=== PATIENT | female | born 1950 | race Caucasian/White ===

== ENCOUNTER 2021-10-30 20:08 | Inpatient (IN) | payer MEDICARE, OTHER ==
[2021-10-30] MEDS ORDERED: SODIUM CHLORIDE 0.9% 1,000 ML IV STA (20:16)
--- NOTE | 2021-10-30 20:28 | ED ---
General Adult HPI - General Chief complaint: Nausea/Vomiting/Diarrhea Stated complaint: Weakness Time Seen by Provider: 10/30/21 20:12 Source: patient Mode of arrival: EMS - History of Present Illness Initial comments: Dictation was produced using [employer] dictation software. please excuse any grammatical, word or spelling errors. Chief Complaint: 70-year-old female presents to the emergency department for request to remove lap band History of Present Illness: 70-year-old female she says she is here to day in emergency department to have her lap and removed. When questioned further states she's been nauseated for the last 2 months specially worse today. She doesn't have a good social situation feels so dizzy that she can call and make an outpatient appointment with her surgeon Dr. Mora who initially placed the lap band. Those at home by herself. She has no transportation. She has a cat that stays with her. 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 She does not take medica tions to treat this because she does not like the side effects of it. She denies any abdominal pain. States that she has nausea. The ROS documented in this emergency department record has been reviewed and confirmed by me. Those systems with pertinent positive or negative responses have been documented in the HPI. All other systems are other negative and/or noncontributory. PHYSICAL EXAM: General Impression: Alert and oriented x3, tremulous HEENT: Normocephalic atraumatic, extra-ocular movements intact, pupils equal and reactive to light bilaterally, mucous membranes moist. Cardiovascular: Heart regular rate and rhythm Chest: Able to complete full sentences, no retractions, no tachypnea Abdomen: abdomen soft, non-tender, non-distended, no organomegaly Musculoskeletal: Pulses present and equal in all extremities, no peripheral edema Motor: no focal deficits noted Neurological: CN II-XII grossly intact, no focal motor or sensory deficits noted Skin: Intact with no visualized rashes Psych: Normal affect and mood ED course: 70-year-old female presents to the emergency department with 2 months of nausea. She wants her lap band removed. She had the lap band placed [address] Cage. Vital signs upon arrival are within acceptable limits. Heart rate is 149 on the monitor technician however she is tremulous and 149 likely not accurate. Laboratory evaluation obtained. CBC unremarkable. Metabolic panel shows slight derangement potassium 3.1, magnesium 1.4, lactic acid is 2.2. Rest metabolic panel is within acceptable limits. Abdominal x-ray with chest x-ray shows no obstructive bowel gas pattern. Patient still nauseated. Given patient's electrolyte derangement she'll be admitted. Her electrolyte abnormalities replaced with parent parenteral Potassium and magnesium. Patient will be admitted to [facility]. EKG interpretation: Ventricular rate 139, sinus tachycardia,. Interval 1:30, care setting 4, QTC 410. No ND prolongation, no QTC prolongation, no ST or T- wave changes noted. - Related Data Home Medications Medication Instructions Recorded Confirmed Atorvastatin [Lipitor] 10 mg PO HS 10/30/21 10/30/21 Enalapril [Vasotec] 20 mg PO DAILY 10/30/21 10/30/21 Furosemide [Lasix] 40 mg PO DAILY 10/30/21 10/30/21 Gabapentin [Neurontin] 300 mg PO TID 10/30/21 10/30/21 Levothyroxine Sodium [Synthroid] 25 mcg PO DAILY 10/30/21 10/30/21 Omeprazole 20 mg PO DAILY 10/30/21 10/30/21 metFORMIN HCL [Glucophage] 500 mg PO BID 10/30/21 10/30/21 metOLazone [Zaroxolyn] 2.5 mg PO DAILY 10/30/21 10/30/21 Allergies Allergy/AdvReac Type Severity Reaction Status Date / Time aspirin Allergy Rash/Hives Verified 10/30/21 20:19 Review of Systems ROS Statement: Those systems with pertinent positive or pertinent negative responses have been documented in the HPI. ROS Other: All systems not noted in ROS Statement are negative. Course Vital Signs 10/30/21 10/30/21 20:10 21:55 Temperature 97.9 F Pulse Rate 149 H 81 Respiratory 18 18 Rate Blood Pressure 139/84 135/82 O2 Sat by Pulse 97 97 Oximetry Medical Decision Making - Lab Data Result diagrams: 10/30/21 20:46 10/30/21 20:46 Lab Results 10/30/21 10/30/21 10/30/21 Range/Units 20:46 20:46 20:46 WBC 9.3 (3.8-10.6) k/uL RBC 4.27 (3.80-5.40) m/uL Hgb 15.2 (11.4-16.0) gm/dL Hct 46.3 H (34.0-46.0) % MCV 108.2 H (80.0-100.0) fL MCH 35.7 H (25.0-35.0) pg MCHC 33.0 (31.0-37.0) g/dL RDW 12.7 (11.5-15.5) % Plt Count 401 (150-450) k/uL MPV 7.3 Neutrophils % 61 % Lymphocytes % 25 % Monocytes % 9 % Eosinophils % 1 % Basophils % 2 % Neutrophils # 5.6 (1.3-7.7) k/uL Lymphocytes # 2.4 (1.0-4.8) k/uL Monocytes # 0.9 (0-1.0) k/uL Eosinophils # 0.1 (0-0.7) k/uL Basophils # 0.1 (0-0.2) k/uL Macrocytosis Moderate Sodium 134 L (137-145) mmol/L Potassium 3.1 L (3.5-5.1) mmol/L Chloride 95 L (98-107) mmol/L Carbon Dioxide 33 H (22-30) mmol/L Anion Gap 6 mmol/L BUN 15 (7-17) mg/dL Creatinine 0.74 (0.52-1.04) mg/dL Est GFR (CKD-EPI)AfAm >90 (>60 ml/min/1.73 sqM) Est GFR (CKD-EPI)NonAf 82 (>60 ml/min/1.73 sqM) Glucose 148 H (74-99) mg/dL Plasma Lactic Acid Dario 2.2 H* (0.7-2.0) mmol/L Calcium 8.3 L (8.4-10.2) mg/dL Magnesium 1.4 L (1.6-2.3) mg/dL Total Bilirubin 0.9 (0.2-1.3) mg/dL AST 73 H (14-36) U/L ALT 31 (4-34) U/L Alkaline Phosphatase 137 H (38-126) U/L Total Protein 6.4 (6.3-8.2) g/dL Albumin 3.2 L (3.5-5.0) g/dL Lipase 85 (23-300) U/L Disposition Clinical Impression: Intractable nausea and vomiting, Hypomagnesemia, Hypokalemia Disposition: ADMITTED IP TO THIS HOSP Condition: Fair Referrals: Jozef Gallegos MD [Primary Care Provider] - 1-2 days
[2021-10-30 21:20] LABS: Basophils # (A) 0.1 k/uL (0-0.2); Basophils % (A) 2 %; Eosinophils # (A) 0.1 k/uL (0-0.7); Eosinophils % (A) 1 %; HCT 46.3 % (34.0-46.0); HGB 15.2 gm/dL (11.4-16.0); Lymphocytes # (A) 2.4 k/uL (1.0-4.8); Lymphocytes % (A) 25 %; MCH 35.7 pg (25.0-35.0); MCV 108.2 fL (80.0-100.0); Macrocytosis Moderate; Mean Platelet Volume 7.3; Monocytes # (A) 0.9 k/uL (0-1.0); Monocytes % (A) 9 %; Neutrophils # (A) 5.6 k/uL (1.3-7.7); Neutrophils % (A) 61 %; Platelet Count 401 k/uL (150-450); RBC 4.27 m/uL (3.80-5.40); RDW 12.7 % (11.5-15.5); WBC 9.3 k/uL (3.8-10.6)
[2021-10-30 21:33] LABS: ALT 31 U/L (4-34); AST 73 U/L (14-36); African American GFR (CKD) >90 (>60 ml/min/1.73 sqM); Albumin 3.2 g/dL (3.5-5.0); Alkaline Phosphatase 137 U/L (38-126); Anion Gap 6 mmol/L; Blood Urea Nitrogen 15 mg/dL (7-17); Calcium 8.3 mg/dL (8.4-10.2); Carbon Dioxide 33 mmol/L (22-30); Chloride 95 mmol/L (98-107); Glucose 148 mg/dL (74-99); Lipase 85 U/L (23-300); Magnesium 1.4 mg/dL (1.6-2.3); Non-African American GFR(CKD) 82 (>60 ml/min/1.73 sqM); Potassium 3.1 mmol/L (3.5-5.1); Sodium 134 mmol/L (137-145); Total Bilirubin 0.9 mg/dL (0.2-1.3); Total Protein 6.4 g/dL (6.3-8.2)
[2021-10-30] MEDS ORDERED: POTASSIUM CHLORIDE 40 MEQ in WATER FOR INJECTION 1 100ML.BAG IVPB STA (22:02)
[2021-10-30] MEDS ORDERED: NALOXONE 0.4 MG/ML 1 ML VIAL IV PRN (22:13)
[2021-10-30] MEDS ORDERED: ONDANSETRON 4 MG/2 ML VIAL IVP PRN (22:13)
--- NOTE | 2021-10-30 22:15 | XR ---
EXAMINATION TYPE: XR abdomen acute w cxr DATE OF EXAM: 10/30/2021 9:57 PM INDICATION: Patient age:Female; 70 years old; Reason for study: nausea; COMPARISON: None. COMPARISON: TECHNIQUE: Two radiographic views of the abdomen and an a chest radiograph were obtained. FINDINGS CHEST: Lungs/Pleura: Patient is rotated on this exam. The lungs are clear. There is no evidence of pleural e ffusion, focal consolidation or pneumothorax. Mediastinum: Unremarkable. Vasculature: Normal. Heart: Normal in size. Musculoskeletal: The osseous structures are intact. Multilevel disc degeneration changes are present with scoliosis changes. Other findings: No significant. FINDINGS ABDOMEN: Bowel gas pattern: Normal without dilated loops of small or large bowel. Fecal material and gas are d emonstrated throughout the colon and rectum. Abnormal calcifications: None. Musculoskeletal: Mild osteophyte formation of the hips is present. Multilevel degenerative disc disea se changes of the lower spine. Other: Gastric band present the flattened orientation. IMPRESSION: 1. No radiographic evidence for acute abdominal process. 2. No acute cardiopulmonary process 3. Flattened orientation of the gastric band correlate for malposition.
[2021-10-30] MEDS ORDERED: POTASSIUM CHLORIDE 100 ML IVPB SCH (22:30)
[2021-10-30] MEDS: POTASSIUM CHLORIDE 20 MEQ in WATER FOR INJECTION 1 100ML.BAG IVPB SCH (22:58)
[2021-10-30] MEDS: MAGNESIUM SULFATE-D5W PMX 1 GM in DEXTROSE/WATER 1 100ML.BAG IVPB SCH (22:58)
[2021-10-30] MEDS: SODIUM CHLORIDE 0.9% 1,000 ML IV SCH (23:09)
[2021-10-31] MEDS: POTASSIUM CHLORIDE 20 MEQ in WATER FOR INJECTION 1 100ML.BAG IVPB SCH (00:48)
[2021-10-31] MEDS ORDERED: LORazepam 2 MG/ML INJ IV STA (01:27)
[2021-10-31] MEDS ORDERED: METOCLOPRAMIDE 5 MG/ML 2 ML VIAL IVP PRN (01:29)
--- NOTE | 2021-10-31 01:38 | P.HPIM ---
History of Present Illness H&P Date: 10/30/21 Chief Complaint: Intractable nausea vomiting 70-year-old female with hypertension and diabetes mellitus and hypothyroid Patient comes in due to persistent nausea vomiting over the past 2 months. Patient is not clear why she decided to come in today however she notified EMS and was brought in by an ambulance as she couldn't take it anymore she cannot tolerate to keep down any food but she is able to drink some liquids. At the same time she admits to drinking wine on daily basis she would drink one or 2 glasses of wine sipping it throughout the night. Patient started having significant tremors for years now and says that alcohol helps with the symptoms. Patient also concerned regarding a lap band that was placed many many years ago and requesting that it gets reevaluated by her surgeon Dr. Mora placed at about 18 years ago to consider removal. Patient has poor social situation and it's unclear why she didn't seek medical advice sooner than this however she denies otherwise any bleeding or abdominal pain denies any falling despite some generalized weakness denies any fevers or chills denies any chest pain or trouble breathing Workup in the ED acute abdominal series showed no acute findings, potassium was low magnesium is low lactic acid elevated. Review of Systems Pertinent positives as noted in HPI. All other systems were reviewed and are negative Past Medical History Past Medical History: Diabetes Mellitus, Hyperlipidemia, Hypertension Additional Past Medical History / Comment(s): chronic tremors, chronic edema. History of Any Multi-Drug Resistant Organisms: None Reported Past Surgical History: Tubal Ligation Additional Past Surgical History / Comment(s): lap band surgery 2002. heel spur surgery, nasal surgery. Past Anesthesia/Blood Transfusion Reactions: No Reported Reaction Past Psychological History: Anxiety, Depression Smoking Status: Former smoker - Past Family History Mother Family Medical History: Cancer, Hypertension Additional Family Medical History / Comment(s): colon and lung cancer. Father Additional Family Medical History / Comment(s): multiple myeloma. Medications and Allergies Home Medications Medication Instructions Recorded Confirmed Type Atorvastatin [Lipitor] 10 mg PO HS 10/30/21 10/30/21 History Enalapril [Vasotec] 20 mg PO DAILY 10/30/21 10/30/21 History Furosemide [Lasix] 40 mg PO DAILY 10/30/21 10/30/21 History Gabapentin [Neurontin] 300 mg PO TID 10/30/21 10/30/21 History Levothyroxine Sodium [Synthroid] 25 mcg PO DAILY 10/30/21 10/30/21 History Omeprazole 20 mg PO DAILY 10/30/21 10/30/21 History metFORMIN HCL [Glucophage] 500 mg PO BID 10/30/21 10/30/21 History metOLazone [Zaroxolyn] 2.5 mg PO DAILY 10/30/21 10/30/21 History Allergies Allergy/AdvReac Type Severity Reaction Status Date / Time aspirin Allergy Rash/Hives Verified 10/30/21 20:19 Physical Exam Vitals: Vital Signs Temp Pulse Pulse Resp BP BP Pulse Ox 10/31/21 01:15 122 H 10/31/21 01:03 98.2 F 133 H 18 126/78 93 L 10/31/21 00:44 130 H 10/30/21 23:31 97 18 141/78 98 10/30/21 21:55 81 18 135/82 97 10/30/21 20:10 97.9 F 149 H 18 139/84 97 Intake and Output 10/30/21 10/30/21 10/31/21 14:59 22:59 06:59 Other: Weight 81.647 kg 81.647 kg Constitutional: Patient is having tremors, pressured speech, repeated nausea vomiting during the interview Eyes: Anicteric sclerae, moist conjunctiva, Pupils equal round reactive to light ENMT: NC/AT Oropharynx clear, no erythema, or exudates Neck: Supple, no masses, or JVD No carotid bruits No thyromegaly Lungs: Audible breath sounds throughout, scattered rhonchi Clear to percussion Normal respiratory effort, no accessory muscle use Cardiovascular: Heart tachycardia, Soft murmurs, no gallops, or rubs No peripheral edema Abdominal: Soft Nontender, no guarding, rebound or rigidity Abdomen moving with respiration Normoactive bowel sounds No hepatomegaly, No splenomegaly No palpable mass No abdominal wall hernia noted Skin: Normal temperature, tone, texture, turgor No induration No subcutaneous nodules No rash, lesions No ulcers Extremities: No digital cyanosis No clubbing Pedal pulses intact and symmetrical Radial pulses intact and symmetrical No calf tenderness Psychiatric: Alert and oriented to person, place and time Neuro Muscles Strength 3-4/5 in all 4 extremities Sensation to light touch grossly present throughout Cranial nerves II-XII grossly intact No focal sensory deficits Lymphatics: no palpable cervical or supraclavicular , or inguinal lymph nodes Results CBC & Chem 7: 10/30/21 20:46 10/30/21 20:46 Labs: Abnormal Lab Results - Last 24 Hours (Table) 10/30/21 10/30/21 10/30/21 Range/Units 20:46 20:46 20:46 Hct 46.3 H (34.0-46.0) % MCV 108.2 H (80.0-100.0) fL MCH 35.7 H (25.0-35.0) pg Sodium 134 L (137-145) mmol/L Potassium 3.1 L (3.5-5.1) mmol/L Chloride 95 L (98-107) mmol/L Carbon Dioxide 33 H (22-30) mmol/L Glucose 148 H (74-99) mg/dL Plasma Lactic Acid Dario 2.2 H* (0.7-2.0) mmol/L Calcium 8.3 L (8.4-10.2) mg/dL Magnesium 1.4 L (1.6-2.3) mg/dL AST 73 H (14-36) U/L Alkaline Phosphatase 137 H (38-126) U/L Albumin 3.2 L (3.5-5.0) g/dL Thrombosis Risk Factor Assmnt - Choose All That Apply Any of the Below Risk Factors Present?: Yes Each Factor Represents 1 point: Obesity (BMI >25) Other Risk Factors: Yes Each Risk Factor Represents 2 Points: Age 61-74 years Other congenital or acquired thrombophilia - If yes, enter type in comment: No Thrombosis Risk Factor Assessment Total Risk Factor Score: 3 Thrombosis Risk Factor Assessment Level: Moderate Risk Assessment and Plan Assessment: Intractable nausea vomiting Electrolyte abnormalities with hypokalemia and hypomagnesemia Lactic acidosis Plan Supportive care IV fluid hydration with normal saline Replace potassium and magnesium and follow-up levels General surgery consult for review of her lamp and placed 18 years ago Monitor vital signs Ativan when necessary for anxiety Chronic conditions Hypothyroidism levothyroxine Diabetes mellitus insulin sliding scale Hypertension resume home blood pressure medications Heparin subcu 3 times a day DVT prophylaxis Full code Anticipated length of stay less than 2 midnights
[2021-10-31] MEDS: ACETAMINOPHEN TAB 325 MG TAB PO PRN (01:44)
[2021-10-31] MEDS ORDERED: IPRATROPIUM-ALBUTEROL 3 ML NEB INHALATION PRN (01:48)
[2021-10-31] MEDS: MAGNESIUM SULFATE-D5W PMX 1 GM in DEXTROSE/WATER 1 100ML.BAG IVPB SCH ×3 (02:57→05:15)
[2021-10-31] MEDS: SODIUM CHLORIDE 0.9% 1,000 ML IV SCH ×3 (05:15→21:08)
[2021-10-31] MEDS: LEVOTHYROXINE 25 MCG TAB PO SCH (05:17)
[2021-10-31 07:47] LABS: Glucose,Whole Blood 100 mg/dL (75-99)
[2021-10-31] MEDS: INSULIN ASPART (NovoLOG) 100 UNIT/ML VIAL SQ SCH ×4 (08:07→21:03)
[2021-10-31] MEDS: IOPAMIDOL CONTRAST (ORAL USE) VIAL PO PRN ×2 (08:51→09:44)
[2021-10-31] MEDS: PANTOPRAZOLE 40 MG/10 ML VIAL IVP SCH (08:51)
[2021-10-31] MEDS ORDERED: lisinopriL 20 MG TAB PO SCH (09:00)
[2021-10-31] MEDS ORDERED: PANTOPRAZOLE 40 MG TABLET PO SCH (09:00)
[2021-10-31] MEDS: HEPARIN SODIUM,PORCINE/PF 5,000 UNIT/0.5 ML SYRINGE SQ SCH ×3 (09:21→23:20)
[2021-10-31] MEDS: GABAPENTIN 300 MG CAP PO SCH ×2 (09:21→16:23)
--- NOTE | 2021-10-31 10:41 | P.GSCN ---
History of Present Illness Consult date: 10/31/21 Reason for Consult: Two-year history of nausea GERD History of present illness: This a 70-year-old female who has a previous history of LAP-BAND surgery with Dr. Cage many years ago. Patient states that she has a two-year history of chronic nausea and GERD symptoms. She has not been seen by Dr. Cage recently. She states she was unable to follow up with him due to transportation issues. Patient was admitted through the emergency room with dehydration and electrolyte imbalances. Patient's currently being fluid hydrated. She states that she is able to drink liquids. She is unsure of the fill volume in her band. Past Medical History Past Medical History: Diabetes Mellitus, Hyperlipidemia, Hypertension Additional Past Medical History / Comment(s): chronic tremors, chronic edema. History of Any Multi-Drug Resistant Organisms: None Reported Past Surgical History: Tubal Ligation Additional Past Surgical History / Comment(s): lap band surgery 2002. heel spur surgery, nasal surgery. Past Anesthesia/Blood Transfusion Reactions: No Reported Reaction Past Psychological History: Anxiety, Depression Smoking Status: Former smoker - Past Family History Mother Family Medical History: Cancer, Hypertension Additional Family Medical History / Comment(s): colon and lung cancer. Father Additional Family Medical History / Comment(s): multiple myeloma. Medications and Allergies Home Medications Medication Instructions Recorded Confirmed Type Atorvastatin [Lipitor] 10 mg PO HS 10/30/21 10/30/21 History Enalapril [Vasotec] 20 mg PO DAILY 10/30/21 10/30/21 History Furosemide [Lasix] 40 mg PO DAILY 10/30/21 10/30/21 History Gabapentin [Neurontin] 300 mg PO TID 10/30/21 10/30/21 History Levothyroxine Sodium [Synthroid] 25 mcg PO DAILY 10/30/21 10/30/21 History Omeprazole 20 mg PO DAILY 10/30/21 10/30/21 History metFORMIN HCL [Glucophage] 500 mg PO BID 10/30/21 10/30/21 History metOLazone [Zaroxolyn] 2.5 mg PO DAILY 10/30/21 10/30/21 History Allergies Allergy/AdvReac Type Severity Reaction Status Date / Time aspirin Allergy Rash/Hives Verified 10/30/21 20:19 Surgical - Exam Vital Signs Temp Pulse Resp BP Pulse Ox 97.9 F 149 H 18 139/84 97 10/30/21 20:10 10/30/21 20:10 10/30/21 20:10 10/30/21 20:10 10/30/21 20:10 - General well developed, no distress - Eyes PERRL - ENT normal pinna - Neck no masses - Respiratory normal expansion - Cardiovascular Rhythm: regular - Abdomen Abdomen: soft, non tender Results - Labs 10/30/21 20:46 10/30/21 20:46 Abnormal Lab Results - Last 24 Hours (Table) 10/30/21 10/30/21 10/30/21 Range/Units 20:46 20:46 20:46 Hct 46.3 H (34.0-46.0) % MCV 108.2 H (80.0-100.0) fL MCH 35.7 H (25.0-35.0) pg Sodium 134 L (137-145) mmol/L Potassium 3.1 L (3.5-5.1) mmol/L Chloride 95 L (98-107) mmol/L Carbon Dioxide 33 H (22-30) mmol/L Glucose 148 H (74-99) mg/dL POC Glucose (mg/dL) (75-99) mg/dL Plasma Lactic Acid Dario 2.2 H* (0.7-2.0) mmol/L Calcium 8.3 L (8.4-10.2) mg/dL Magnesium 1.4 L (1.6-2.3) mg/dL AST 73 H (14-36) U/L Alkaline Phosphatase 137 H (38-126) U/L Albumin 3.2 L (3.5-5.0) g/dL 10/31/21 10/31/21 Range/Units 00:27 07:46 Hct (34.0-46.0) % MCV (80.0-100.0) fL MCH (25.0-35.0) pg Sodium (137-145) mmol/L Potassium (3.5-5.1) mmol/L Chloride (98-107) mmol/L Carbon Dioxide (22-30) mmol/L Glucose (74-99) mg/dL POC Glucose (mg/dL) 100 H (75-99) mg/dL Plasma Lactic Acid Dario 2.4 H* (0.7-2.0) mmol/L Calcium (8.4-10.2) mg/dL Magnesium (1.6-2.3) mg/dL AST (14-36) U/L Alkaline Phosphatase (38-126) U/L Albumin (3.5-5.0) g/dL Diabetes panel 10/30/21 Range/Units 20:46 Sodium 134 L (137-145) mmol/L Potassium 3.1 L (3.5-5.1) mmol/L Chloride 95 L (98-107) mmol/L Carbon Dioxide 33 H (22-30) mmol/L BUN 15 (7-17) mg/dL Creatinine 0.74 (0.52-1.04) mg/dL Glucose 148 H (74-99) mg/dL Calcium 8.3 L (8.4-10.2) mg/dL AST 73 H (14-36) U/L ALT 31 (4-34) U/L Alkaline Phosphatase 137 H (38-126) U/L Total Protein 6.4 (6.3-8.2) g/dL Albumin 3.2 L (3.5-5.0) g/dL Calcium panel 10/30/21 Range/Units 20:46 Calcium 8.3 L (8.4-10.2) mg/dL Albumin 3.2 L (3.5-5.0) g/dL Pituitary panel 10/30/21 Range/Units 20:46 Sodium 134 L (137-145) mmol/L Potassium 3.1 L (3.5-5.1) mmol/L Chloride 95 L (98-107) mmol/L Carbon Dioxide 33 H (22-30) mmol/L BUN 15 (7-17) mg/dL Creatinine 0.74 (0.52-1.04) mg/dL Glucose 148 H (74-99) mg/dL Calcium 8.3 L (8.4-10.2) mg/dL Adrenal panel 10/30/21 Range/Units 20:46 Sodium 134 L (137-145) mmol/L Potassium 3.1 L (3.5-5.1) mmol/L Chloride 95 L (98-107) mmol/L Carbon Dioxide 33 H (22-30) mmol/L BUN 15 (7-17) mg/dL Creatinine 0.74 (0.52-1.04) mg/dL Glucose 148 H (74-99) mg/dL Calcium 8.3 L (8.4-10.2) mg/dL Total Bilirubin 0.9 (0.2-1.3) mg/dL AST 73 H (14-36) U/L ALT 31 (4-34) U/L Alkaline Phosphatase 137 H (38-126) U/L Total Protein 6.4 (6.3-8.2) g/dL Albumin 3.2 L (3.5-5.0) g/dL Assessment and Plan Assessment: Chronic history of GERD. Patient has had LAP-BAND. Her abdominal x-rays show an obvious prolapse of her LAP-BAND. She is scheduled for a CAT scan today. The patient will need the fluid in her LAP-BAND removed. She can remain on clear liquids for now.
--- NOTE | 2021-10-31 11:02 | CT ---
EXAMINATION TYPE: CT abdomen pelvis w con DATE OF EXAM: 10/31/2021 HISTORY: nausea and vomiting CT DLP: 1257.1mGycm Automated Exposure Control for Dose Reduction was Utilized. CONTRAST: CT scan of the abdomen and pelvis is performed with oral and with IV Contrast, patient injected with 100 mL of Isovue 300. COMPARISON: None. FINDINGS: LUNG BASES: No significant abnormality is appreciated. LIVER/GB: Gallbladder is surgically absent. Visualized liver is heterogeneously hypodense suggesting diffuse fatty infiltration. PANCREAS: [id number] diffuse fat replaced atrophy. SPLEEN: No significant abnormality is seen. ADRENALS: No significant abnormality is seen. KIDNEYS: No significant abnormality is seen. BOWEL: Oral contrast only reaches level of hepatic flexure. Lap band device satisfactory in position. No suspicious small or large bowel dilatation. Diverticula in the left and sigmoid colon. Mild wall thickening transverse colon to sigmoid colon. No significant surrounding fat stranding. UTERUS/ADNEXA: Anteverted uterus projects to left of midline. Occasional scattered pelvic phleboliths . LYMPH NODES: No greater than 1cm abdominal or pelvic lymph nodes are appreciated. OSSEOUS STRUCTURES: Spine is straightened. Moderate to severe Disc space narrowing and vacuum disc ph enomenon greatest right L3-L4 and L2-L3 levels along with L5-S1 levels. Facet arthropathy lower lumba r levels. OTHER: Mild to borderline moderate calcified plaque of the aorta extends into branch vessels. Small f at-containing left inguinal hernia. IMPRESSION: No bowel obstruction. Colonic findings favor product of poor distention, mild uncomplicat ed colitis felt less likely. No acute findings are otherwise evident.
[2021-10-31 11:55] LABS: Glucose,Whole Blood 114 mg/dL (75-99)
[2021-10-31 12:37] LABS: HCT 41.2 % (37.2-46.3); HGB 13.3 g/dL (12.0-15.0); MCH 35.6 pg (27.0-32.0); MCHC 32.3 g/dL (32.0-37.0); MCV 110.2 fL (80.0-97.0); Mean Platelet Volume 9.7 fL (9.5-12.2); NRBC Per 100 WBC 0 /100 WBCS (0.0-0.0); Platelet Count 329 X 10*3/uL (140-440); RBC 3.74 X 10*6/uL (4.10-5.20); RDW 13.9 % (11.5-14.5); WBC 9.16 X 10*3/uL (4.50-10.00)
[2021-10-31 12:45] LABS: African American GFR (CKD) 85.4 (60.0-200.0); Albumin 2.9 g/dL (3.8-4.9); Albumin/Globulin Ratio 1.16 (1.60-3.17); Anion Gap 13.7 mmol/L (10.00-18.00); BUN/Creat Ratio 18.5 Ratio (12.00-20.00); Blood Urea Nitrogen 14.8 mg/dL (9.0-27.0); Calcium 8.1 mg/dL (8.7-10.3); Carbon Dioxide 27.3 mmol/L (20.0-27.5); Globulin 2.5 g/dL (1.6-3.3); Magnesium 1.9 mg/dL (1.5-2.4); Non-African American GFR(CKD) 73.7 (60.0-200.0); Potassium 3.9 mmol/L (3.5-5.5); Total Bilirubin 0.6 mg/dL (0.30-1.20); Total Protein 5.4 g/dL (6.2-8.2)
[2021-10-31 13:56] LABS: Basophils # (A) 0.05 X 10*3/uL (0.00-0.10); Basophils % (A) 0.5 %; Eosinophils # (A) 0.01 X 10*3/uL (0.04-0.35); Eosinophils % (A) 0.1 %; Immature Grans, Automated 0.3 %; Lymphocytes # (A) 2.42 X 10*3/uL (0.90-5.00); Lymphocytes % (A) 26.4 %; Macrocytosis (M) 2+; Monocytes # (A) 1.05 X 10*3/uL (0.20-1.00); Monocytes % (A) 11.5 %; Neutrophils % (A) 61.2 %
[2021-10-31] MEDS ORDERED: SODIUM CHLORIDE 0.9% 1,000 ML IV ONE ×3 (16:14→19:16)
[2021-10-31] MEDS ORDERED: PIPERACILLIN-TAZOBACTAM 3.375 GM in SODIUM CHLORIDE 0.9% 100 ML IVPB SCH (16:45)
[2021-10-31 16:50] LABS: Glucose,Whole Blood 101 mg/dL (75-99)
--- NOTE | 2021-10-31 16:58 | P.PN ---
Subjective Progress Note Date: 10/31/21 (delayed charting seen at 1030) Principal diagnosis: nausea and vomiting Patient is a 70 yo CF with known prior lap band surgery, DM, HTN, and hypothyroidism who presented wtto the ED via EMS fofr nausea and vomiting X 2 months. On arrival to the ER she underwent an extensive evaluation. Initial vital signs were within normal limits. Initial laboratory analysis showed a sodium of 134, potassium 3.1, glucose 148 lactic acid 2.2, magnesium 1.4. She was started on IV fluids and her magnesium and potassium were replaced. X-ray demonstrated a displaced lap band. She was admitted with surgical consultation. CT abdomen and pelvis was obtained which showed no bowel obstruction, mild uncomplicated colitis less likely. Patient seen and exmained at bedside. She states that she did not seek care because she was "too sick here" after vomiting for 2 months. She denies any overt belly pain but states she has not been able to take her medications due to her persistent nausea and vomiting. She did tolerate liquids but nothing solid. She has not followed up with Dr. Mora quite some time. General: ,non toxic, no distress, appears at stated age Derm: warm, dry Head: atraumatic, normocephalic, symmetric Eyes: EOMI, no lid lag, anicteric sclera Mouth: no lip lesion, mucus membranes moist Cardiovascular: S1S2 reg, no murmur, positive posterior tibial pulse bilateral, Lungs: CTA bilateral, no rhonchi, no rales , no accessory muscle use Abdominal: soft, + tender to palpation, no guarding, no appreciable organomegaly Ext: no gross muscle atrophy, no edema, no contractures Neuro: CN II-XI grossly intact, no focal neuro deficits Psych: Alert, oriented, appropriate affect Assessment/plan: Intractable n/v - surgery recs - IVF - Clear liquid diet DM - SSI - Check Accucheck - Heck A1C HTN, controlled - follow BP - continue with lisinopril HLD - statin Hypokalemia Hypomagnesemia Lactic acidosis Patient later developed hypotension - lisnopril held - cortisol and TSH ordered - 1L fluid bolus - stat labs - repeat x-ray - started on zosyn for possible colitis on CT with hypotension - EKG DVT prophylaxis: Heparin Discussed with: chrissy Anthony Anticipated discharge: pending clinical course Anticipated discharge place: home A total of 35 minutes was spent on the care of this complex patient more than 50% of the time was spent in counseling and care coordination. Objective - Vital Signs Vital signs: Vital Signs Temp 98.4 F 10/31/21 14:00 Pulse 76 10/31/21 14:00 Resp 18 10/31/21 14:00 BP 91/60 10/31/21 16:41 Pulse Ox 95 10/31/21 14:00 Intake & Output 10/30/21 10/31/21 10/31/21 18:59 06:59 18:59 Intake Total 380 Balance 380 Weight 81.647 kg Intake: Oral 380 Other: # Voids 1 1 - Labs CBC & Chem 7: 10/31/21 03:15 10/31/21 03:15 Labs: Abnormal Lab Results - Last 24 Hours (Table) 10/30/21 10/30/21 10/30/21 Range/Units 20:46 20:46 20:46 RBC (4.10-5.20) X 10*6/uL Hct 46.3 H (34.0-46.0) % MCV 108.2 H (80.0-100.0) fL MCH 35.7 H (25.0-35.0) pg Monocytes # (0.20-1.00) X 10*3/uL Eosinophils # (0.04-0.35) X 10*3/uL Sodium 134 L (137-145) mmol/L Potassium 3.1 L (3.5-5.1) mmol/L Chloride 95 L (98-107) mmol/L Carbon Dioxide 33 H (22-30) mmol/L Glucose 148 H (74-99) mg/dL POC Glucose (mg/dL) (75-99) mg/dL Plasma Lactic Acid Dario 2.2 H* (0.7-2.0) mmol/L Calcium 8.3 L (8.4-10.2) mg/dL Magnesium 1.4 L (1.6-2.3) mg/dL AST 73 H (14-36) U/L Alkaline Phosphatase 137 H (38-126) U/L Total Protein (6.2-8.2) g/dL Albumin 3.2 L (3.5-5.0) g/dL Albumin/Globulin Ratio (1.60-3.17) g/dL 10/31/21 10/31/21 10/31/21 Range/Units 00:27 03:15 03:15 RBC 3.74 L (4.10-5.20) X 10*6/uL Hct (34.0-46.0) % MCV 110.2 H (80.0-100.0) fL MCH 35.6 H (25.0-35.0) pg Monocytes # 1.05 H (0.20-1.00) X 10*3/uL Eosinophils # 0.01 L (0.04-0.35) X 10*3/uL Sodium (137-145) mmol/L Potassium (3.5-5.1) mmol/L Chloride (98-107) mmol/L Carbon Dioxide (22-30) mmol/L Glucose (74-99) mg/dL POC Glucose (mg/dL) (75-99) mg/dL Plasma Lactic Acid Dario 2.4 H* (0.7-2.0) mmol/L Calcium 8.1 L (8.4-10.2) mg/dL Magnesium (1.6-2.3) mg/dL AST 50 H (14-36) U/L Alkaline Phosphatase (38-126) U/L Total Protein 5.4 L (6.2-8.2) g/dL Albumin 2.9 L (3.5-5.0) g/dL Albumin/Globulin Ratio 1.16 L (1.60-3.17) g/dL 10/31/21 10/31/21 10/31/21 Range/Units 07:46 11:54 16:48 RBC (4.10-5.20) X 10*6/uL Hct (34.0-46.0) % MCV (80.0-100.0) fL MCH (25.0-35.0) pg Monocytes # (0.20-1.00) X 10*3/uL Eosinophils # (0.04-0.35) X 10*3/uL Sodium (137-145) mmol/L Potassium (3.5-5.1) mmol/L Chloride (98-107) mmol/L Carbon Dioxide (22-30) mmol/L Glucose (74-99) mg/dL POC Glucose (mg/dL) 100 H 114 H 101 H (75-99) mg/dL Plasma Lactic Acid Dario (0.7-2.0) mmol/L Calcium (8.4-10.2) mg/dL Magnesium (1.6-2.3) mg/dL AST (14-36) U/L Alkaline Phosphatase (38-126) U/L Total Protein (6.2-8.2) g/dL Albumin (3.5-5.0) g/dL Albumin/Globulin Ratio (1.60-3.17) g/dL
--- NOTE | 2021-10-31 17:22 | XR ---
EXAMINATION TYPE: XR abdomen acute w cxr DATE OF EXAM: 10/31/2021 5:09 PM INDICATION: Patient age:Female; 70 years old; Reason for study: nausea and vomiting with hypotension; COMPARISON: Chest radiograph 10/30/2021. TECHNIQUE: Two radiographic views of the abdomen and an a chest radiograph were obtained. FINDINGS CHEST: Lungs/Pleura: The lungs are clear. There is no evidence of pleural effusion, focal consolidation or p neumothorax. Mediastinum: Unremarkable. Vasculature: Normal. Heart: Heart is prominent in size. It should be overhear about the patella Musculoskeletal: The osseous structures are intact. Multilevel disc degeneration changes throughout t he visualized spine. Other findings: No significant. FINDINGS ABDOMEN: Bowel gas pattern: High contrast material seen within the colon relating to oral contrast from prior study. Normal without dilated loops of small or large bowel. Fecal material and gas are demonstrated throughout the colon and rectum. Abnormal calcifications: None. Musculoskeletal: Multilevel disc degeneration changes seen throughout the spine. Mild degenerative ch anges of the hips. Other: Gastric band is present which appears within appropriate position. Excreted IV contrast seen w ithin the bladder lumen. IMPRESSION: 1. No radiographic evidence for acute abdominal process. 2. No acute cardiopulmonary process 3. Gastric band now appears in proper position. 4. Excreted IV contrast within the bladder and oral contrast within the colon.
[2021-10-31 17:24] LABS: HCT 37.2 % (34.0-46.0); HGB 12.3 gm/dL (11.4-16.0); MCHC 33.1 g/dL (31.0-37.0); MCV 111.5 fL (80.0-100.0); Macrocytosis Marked; Mean Platelet Volume 7.2; Platelet Count 306 k/uL (150-450); RBC 3.34 m/uL (3.80-5.40); WBC 7.3 k/uL (3.8-10.6)
[2021-10-31] MEDS ORDERED: MIDODRINE 5 MG TAB PO STA (17:32)
[2021-10-31] MEDS ORDERED: HYDROCORTISONE SUCCINATE 100 MG/2 ML VIAL IV STA (17:32)
[2021-10-31 17:38] LABS: ALT 22 U/L (4-34); AST 45 U/L (14-36); African American GFR (CKD) 76 (>60 ml/min/1.73 sqM); Albumin 2.4 g/dL (3.5-5.0); Albumin/Globulin Ratio 0.9; Alkaline Phosphatase 98 U/L (38-126); Anion Gap 2 mmol/L; Blood Urea Nitrogen 14 mg/dL (7-17); Carbon Dioxide 28 mmol/L (22-30); Chloride 98 mmol/L (98-107); Globulin 2.7 g/dL; Glucose 101 mg/dL (74-99); Magnesium 2.5 mg/dL (1.6-2.3); Non-African American GFR(CKD) 66 (>60 ml/min/1.73 sqM); Phosphorus 2.5 mg/dL (2.5-4.5); Potassium 3.3 mmol/L (3.5-5.1); Sodium 128 mmol/L (137-145); Total Protein 5.1 g/dL (6.3-8.2)
[2021-10-31] MEDS: POTASSIUM CHLORIDE 10 MEQ in SODIUM CHLORIDE 0.9% 100 ML IVPB SCH ×2 (19:43→21:06)
[2021-10-31 20:10] LABS: Glucose,Whole Blood 115 mg/dL (75-99)
[2021-10-31] MEDS: ATORVASTATIN 10 MG TAB PO SCH (21:02)
[2021-10-31] MEDS: PIPERACILLIN-TAZOBACTAM 3.375 GM in SODIUM CHLORIDE 0.9% 100 ML IVPB SCH ×2 (23:24→23:25)
[2021-11-01] MEDS: ACETAMINOPHEN TAB 325 MG TAB PO PRN (03:29)
[2021-11-01 05:25] LABS: HCT 36.4 % (34.0-46.0); HGB 11.9 gm/dL (11.4-16.0); MCH 37.1 pg (25.0-35.0); MCHC 32.8 g/dL (31.0-37.0); Macrocytosis Marked; Mean Platelet Volume 7.7; Platelet Count 263 k/uL (150-450); RBC 3.21 m/uL (3.80-5.40); RDW 13.9 % (11.5-15.5); WBC 4.7 k/uL (3.8-10.6)
[2021-11-01 05:29] LABS: MCV 113.1 fL (80.0-100.0)
[2021-11-01] MEDS ORDERED: GABAPENTIN 300 MG CAP PO STA (05:32)
[2021-11-01] MEDS: LEVOTHYROXINE 25 MCG TAB PO SCH (05:37)
[2021-11-01] MEDS: PIPERACILLIN-TAZOBACTAM 3.375 GM in SODIUM CHLORIDE 0.9% 100 ML IVPB SCH ×3 (05:39→21:44)
[2021-11-01] MEDS: SODIUM CHLORIDE 0.9% 1,000 ML IV SCH ×3 (05:39→21:29)
[2021-11-01 05:42] LABS: AST 47 U/L (14-36); African American GFR (CKD) >90 (>60 ml/min/1.73 sqM); Albumin 2.2 g/dL (3.5-5.0); Albumin/Globulin Ratio 0.8; Alkaline Phosphatase 89 U/L (38-126); Anion Gap 1 mmol/L; Blood Urea Nitrogen 10 mg/dL (7-17); Carbon Dioxide 24 mmol/L (22-30); Chloride 108 mmol/L (98-107); Globulin 2.7 g/dL; Glucose 85 mg/dL (74-99); Magnesium 2.2 mg/dL (1.6-2.3); Non-African American GFR(CKD) >90 (>60 ml/min/1.73 sqM); Sodium 133 mmol/L (137-145); Total Bilirubin 1.1 mg/dL (0.2-1.3); Total Protein 4.9 g/dL (6.3-8.2)
[2021-11-01 05:43] LABS: ALT 21 U/L (4-34); Calcium 6.6 mg/dL (8.4-10.2); Potassium 3.2 mmol/L (3.5-5.1)
[2021-11-01 07:22] LABS: Glucose,Whole Blood 89 mg/dL (75-99)
[2021-11-01] MEDS: INSULIN ASPART (NovoLOG) 100 UNIT/ML VIAL SQ SCH ×4 (07:25→21:32)
[2021-11-01] MEDS: PANTOPRAZOLE 40 MG/10 ML VIAL IVP SCH (07:45)
[2021-11-01] MEDS ORDERED: POTASSIUM CHLORIDE ER 20 MEQ TAB.ER PO STA (07:45)
[2021-11-01] MEDS: HEPARIN SODIUM,PORCINE/PF 5,000 UNIT/0.5 ML SYRINGE SQ SCH ×3 (07:46→21:44)
[2021-11-01] MEDS ORDERED: COSYNTROPIN 0.25 MG VIAL IVP ONE (08:45)
--- NOTE | 2021-11-01 11:30 | P.PN ---
Subjective Progress Note Date: 11/01/21 CHIEF COMPLAINT: Nausea, vomiting HISTORY OF PRESENT ILLNESS: This is 70-year-old female with a history of lap band placed approximately 18-[address] Mora. Patient presented to the emergency department with increased weakness, nausea and complains of not being able to eat solids for the last 2 months duration due to vomiting. States she is able to keep liquids and soft foods such as puddings and soups. States she has lost approximately 20 pounds over the last 2 months. She is also experiencing significant acid reflux. She is requesting her lap band to be removed were reduced. She does state that most nauseous is following her medications. Reports no recent EGD, states last one was with her lap band surgery. PHYSICAL EXAM: VITAL SIGNS: Reviewed. GENERAL: Well-developed in no acute distress. HEENT: No sclera icterus. Extraocular movements grossly intact. Moist buccal mucosa. Head is atraumatic, normocephalic. ABDOMEN: Soft. Nondistended. Nontender. NEUROLOGIC: Alert and oriented. Cranial nerves II through XII grossly intact. ASSESSMENT: 1. Nausea and vomiting 2. History of lap band 3. Hypotension 4. Hypokalemia 5. Hyponatremia 6. Diabetes mellitus PLAN: 1. Patient may have full liquid diet 2. Glucerna supplement ordered 3. Continue with antiemetics 4. Continue with Protonix daily 5. Will plan lap band fluid removal 6. Upper GI series ordered The impression and plan of care has been dictated as directed. Dr. Mora I performed a history and examination of this patient, discussed the same with the dictator. I agree with the dictator's note ,documented as a scribe. Any additional findings or plans will be noted.. 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 Based on total visit time, I have performed more than 50% of the visit. As above: Patient with dysphagia and reflux. Symptoms gradually worsening over the last several months. CAT scan reviewed. No obvious evidence of prolapse or erosion. Will empty band. Will order esophagram. Patient may still require upper endoscopy. The patient's lap band port was palpated. The site was aseptically prepped. The Lamb needle was advanced into the port. A total of 2 ml of fluid was removed. Patient's band is now empty. Pressure was held and a sterile dressing was applied. Objective - Vital Signs Vital signs: Vital Signs Temp 98.4 F 11/01/21 08:00 Pulse 79 11/01/21 08:00 Resp 18 11/01/21 08:00 BP 97/61 11/01/21 08:00 Pulse Ox 98 11/01/21 08:00 Intake & Output 10/31/21 11/01/21 11/01/21 18:59 06:59 18:59 Intake Total 2299 1380 Output Total 1025 Balance 2299 355 Intake: IV 2299 Sodium Chloride 0.9% 1, 1300 000 ml @ 130 mls/hr IV . Q7H42M RELL Rx#:[id number] Sodium Chloride 0.9% 1, 999 000 ml @ 999 mls/hr IV . Q1H1M ONE Rx#:[id number] Intake, IV Titration 1000 Amount Sodium Chloride 0.9% 1, 1000 000 ml @ 999 mls/hr IV . Q1H1M ONE Rx#:[id number] Oral 380 Output: Urine 475 Urine/Stool Mix 550 Other: # Voids 2 # Bowel Movements 1 - Labs CBC & Chem 7: 11/01/21 04:45 11/01/21 04:45 Labs: Abnormal Lab Results - Last 24 Hours (Table) 10/31/21 10/31/21 10/31/21 Range/Units 03:15 03:15 11:54 RBC 3.74 L (4.10-5.20) X 10*6/uL MCV 110.2 H (80.0-97.0) fL MCH 35.6 H (27.0-32.0) pg Monocytes # 1.05 H (0.20-1.00) X 10*3/uL Eosinophils # 0.01 L (0.04-0.35) X 10*3/uL Macrocytosis Sodium (137-145) mmol/L Potassium (3.5-5.1) mmol/L Chloride (98-107) mmol/L Glucose (74-99) mg/dL POC Glucose (mg/dL) 114 H (75-99) mg/dL Calcium 8.1 L (8.7-10.3) mg/dL Magnesium (1.6-2.3) mg/dL AST 50 H (13-35) U/L Total Protein 5.4 L (6.2-8.2) g/dL Albumin 2.9 L (3.8-4.9) g/dL Albumin/Globulin Ratio 1.16 L (1.60-3.17) g/dL 10/31/21 10/31/21 10/31/21 Range/Units 16:48 17:04 17:04 RBC 3.34 L (4.10-5.20) X 10*6/uL MCV 111.5 H (80.0-97.0) fL MCH 37.0 H (27.0-32.0) pg Monocytes # (0.20-1.00) X 10*3/uL Eosinophils # (0.04-0.35) X 10*3/uL Macrocytosis Marked A Sodium 128 L (137-145) mmol/L Potassium 3.3 L (3.5-5.1) mmol/L Chloride (98-107) mmol/L Glucose 101 H (74-99) mg/dL POC Glucose (mg/dL) 101 H (75-99) mg/dL Calcium 7.0 L (8.7-10.3) mg/dL Magnesium 2.5 H (1.6-2.3) mg/dL AST 45 H (13-35) U/L Total Protein 5.1 L (6.2-8.2) g/dL Albumin 2.4 L (3.8-4.9) g/dL Albumin/Globulin Ratio (1.60-3.17) g/dL 10/31/21 11/01/21 11/01/21 Range/Units 20:09 04:45 04:45 RBC 3.21 L (4.10-5.20) X 10*6/uL MCV 113.1 H (80.0-97.0) fL MCH 37.1 H (27.0-32.0) pg Monocytes # (0.20-1.00) X 10*3/uL Eosinophils # (0.04-0.35) X 10*3/uL Macrocytosis Marked A Sodium 133 L (137-145) mmol/L Potassium 3.2 L (3.5-5.1) mmol/L Chloride 108 H (98-107) mmol/L Glucose (74-99) mg/dL POC Glucose (mg/dL) 115 H (75-99) mg/dL Calcium 6.6 L (8.7-10.3) mg/dL Magnesium (1.6-2.3) mg/dL AST 47 H (13-35) U/L Total Protein 4.9 L (6.2-8.2) g/dL Albumin 2.2 L (3.8-4.9) g/dL Albumin/Globulin Ratio (1.60-3.17) g/dL
--- NOTE | 2021-11-01 11:55 | FL ---
SINGLE CONTRAST UPPER GI EXAMINATION: CLINICAL HISTORY: 70 year-old female nausea and vomiting, history of lap band 20 years ago. 2 mL's o f fluid removed today from the left gland. TECHNIQUE: Single contrast exam performed with 2 ounces of thin barium. Total fluoroscopy time: 49 seconds. Total images: 40. FINDINGS: The patient swallowed oral contrast without difficulty or delay. Esophageal peristalsis and motility are within normal limits. There is prompt passage of contrast from esophagus into the stomach across the patient's lap band which appears appropriate positioned along the proximal aspect of the stomach . There is a me mild relative narrowing which appears to represent an appropriate amount of restricti on across the left bed. IMPRESSION: Satisfactory positioning of the lap band. No obstruction. Appropriate, slight restriction across the lap band.
[2021-11-01 11:58] LABS: Glucose,Whole Blood 102 mg/dL (75-99)
[2021-11-01 16:52] LABS: Glucose,Whole Blood 106 mg/dL (75-99)
[2021-11-01] MEDS: GABAPENTIN 300 MG CAP PO SCH ×2 (17:23→21:44)
[2021-11-01 20:49] LABS: Glucose,Whole Blood 106 mg/dL (75-99)
--- NOTE | 2021-11-01 20:51 | P.PN ---
Subjective Progress Note Date: 11/01/21 (delayed charting seen at 0830) Principal diagnosis: nausea and vomiting Patient is a 70 yo CF with known prior lap band surgery, DM, HTN, and hypothyroidism who presented wtto the ED via EMS fofr nausea and vomiting X 2 months. On arrival to the ER she underwent an extensive evaluation. Initial vital signs were within normal limits. Initial laboratory analysis showed a sodium of 134, potassium 3.1, glucose 148 lactic acid 2.2, magnesium 1.4. She was started on IV fluids and her magnesium and potassium were replaced. X-ray demonstrated a displaced lap band. She was admitted with surgical consultation. CT abdomen and pelvis was obtained which showed no bowel obstruction, mild uncomplicated colitis less likely. She developed hypotesnion whihc resolved with IV fluids, Midodrine and 1 dose of steroids. Her AM cortisol level was low but ACTH stim test demonstrated appropriate results. Patient seen and examined at bedside. She is still having some nausea, no vomiting, no abdominal pain, feels weak, tolerating clear liquid diet. General: ,non toxic, no distress, appears at stated age Derm: warm, dry Head: atraumatic, normocephalic, symmetric Eyes: EOMI, no lid lag, anicteric sclera Mouth: no lip lesion, mucus membranes moist Cardiovascular: S1S2 reg, no murmur, positive posterior tibial pulse bilateral, Lungs: CTA bilateral, no rhonchi, no rales , no accessory muscle use Abdominal: soft, + tender to palpation, no guarding, no appreciable organomegaly Ext: no gross muscle atrophy, no edema, no contractures Neuro: CN II-XI grossly intact, no focal neuro deficits Psych: Alert, oriented, appropriate affect Assessment/plan: Intractable n/v - surgery recs - IVF - advanced to full liquid diet - ACTH stim test ruled out adrnal insufficiency DM - SSI - Check Accucheck - Check A1C HLD - statin Hypokalemia Hypomagnesemia Lactic acidosis Hypotension - lisnopril held - zosyn for possibel colitis, doubt clinically DVT prophylaxis: Heparin Discussed with: Gabrielle nursing Anticipated discharge: pending clinical course Anticipated discharge place: home A total of 35 minutes was spent on the care of this complex patient more than 50% of the time was spent in counseling and care coordination. Objective - Vital Signs Vital signs: Vital Signs Temp 97.8 F 11/01/21 14:00 Pulse 102 H 11/01/21 14:00 Resp 20 11/01/21 14:00 BP 111/70 11/01/21 14:00 Pulse Ox 96 11/01/21 14:00 Intake & Output 11/01/21 11/01/21 11/02/21 06:59 18:59 06:59 Intake Total 1380 Output Total 1025 Balance 355 Intake: Intake, IV Titration 1000 Amount Sodium Chloride 0.9% 1, 1000 000 ml @ 999 mls/hr IV . Q1H1M ONE Rx#:[id number] Oral 380 Output: Urine 475 Urine/Stool Mix 550 Other: # Voids 4 - Labs CBC & Chem 7: 11/01/21 04:45 11/01/21 04:45 Labs: Abnormal Lab Results - Last 24 Hours (Table) 11/01/21 11/01/21 11/01/21 Range/Units 04:45 04:45 11:57 RBC 3.21 L (3.80-5.40) m/uL MCV 113.1 H (80.0-100.0) fL MCH 37.1 H (25.0-35.0) pg Macrocytosis Marked A Sodium 133 L (137-145) mmol/L Potassium 3.2 L (3.5-5.1) mmol/L Chloride 108 H (98-107) mmol/L POC Glucose (mg/dL) 102 H (75-99) mg/dL Calcium 6.6 L (8.4-10.2) mg/dL AST 47 H (14-36) U/L Total Protein 4.9 L (6.3-8.2) g/dL Albumin 2.2 L (3.5-5.0) g/dL 11/01/21 Range/Units 16:51 RBC (3.80-5.40) m/uL MCV (80.0-100.0) fL MCH (25.0-35.0) pg Macrocytosis Sodium (137-145) mmol/L Potassium (3.5-5.1) mmol/L Chloride (98-107) mmol/L POC Glucose (mg/dL) 106 H (75-99) mg/dL Calcium (8.4-10.2) mg/dL AST (14-36) U/L Total Protein (6.3-8.2) g/dL Albumin (3.5-5.0) g/dL
[2021-11-01] MEDS: ATORVASTATIN 10 MG TAB PO SCH (21:44)
[2021-11-02 04:12] LABS: HCT 34.9 % (34.0-46.0); HGB 11.6 gm/dL (11.4-16.0); MCH 38.1 pg (25.0-35.0); MCHC 33.2 g/dL (31.0-37.0); MCV 114.9 fL (80.0-100.0); Mean Platelet Volume 7.4; Platelet Count 216 k/uL (150-450); RBC 3.04 m/uL (3.80-5.40); WBC 5.3 k/uL (3.8-10.6)
[2021-11-02 04:30] LABS: ALT 20 U/L (4-34); AST 41 U/L (14-36); African American GFR (CKD) >90 (>60 ml/min/1.73 sqM); Albumin 2.1 g/dL (3.5-5.0); Albumin/Globulin Ratio 0.8; Alkaline Phosphatase 80 U/L (38-126); Anion Gap 3 mmol/L; Blood Urea Nitrogen 9 mg/dL (7-17); Calcium 6.6 mg/dL (8.4-10.2); Carbon Dioxide 20 mmol/L (22-30); Chloride 111 mmol/L (98-107); Globulin 2.6 g/dL; Glucose 83 mg/dL (74-99); Non-African American GFR(CKD) >90 (>60 ml/min/1.73 sqM); Potassium 3.1 mmol/L (3.5-5.1); Sodium 134 mmol/L (137-145); Total Protein 4.7 g/dL (6.3-8.2)
[2021-11-02 04:38] LABS: Macrocytosis Marked
[2021-11-02] MEDS: SODIUM CHLORIDE 0.9% 1,000 ML IV SCH ×2 (05:25→11:52)
[2021-11-02] MEDS: PIPERACILLIN-TAZOBACTAM 3.375 GM in SODIUM CHLORIDE 0.9% 100 ML IVPB SCH ×3 (05:26→21:41)
[2021-11-02] MEDS: LEVOTHYROXINE 25 MCG TAB PO SCH (05:27)
[2021-11-02 07:06] LABS: Glucose,Whole Blood 91 mg/dL (75-99)
[2021-11-02] MEDS: INSULIN ASPART (NovoLOG) 100 UNIT/ML VIAL SQ SCH ×4 (08:05→21:41)
[2021-11-02] MEDS: HEPARIN SODIUM,PORCINE/PF 5,000 UNIT/0.5 ML SYRINGE SQ SCH ×3 (08:22→21:41)
[2021-11-02] MEDS: GABAPENTIN 300 MG CAP PO SCH ×3 (08:22→21:41)
[2021-11-02] MEDS: PANTOPRAZOLE 40 MG/10 ML VIAL IVP SCH (08:22)
--- NOTE | 2021-11-02 11:18 | P.PN ---
Subjective Progress Note Date: 11/02/21 Patient is a 70 yo CF with known prior lap band surgery, DM, HTN, and hypothyroidism who presented wtto the ED via EMS fofr nausea and vomiting X 2 months. On arrival to the ER she underwent an extensive evaluation. Initial vital signs were within normal limits. Initial laboratory analysis showed a sodium of 134, potassium 3.1, glucose 148 lactic acid 2.2, magnesium 1.4. She was started on IV fluids and her magnesium and potassium were replaced. X-ray demonstrated a displaced lap band. She was admitted with surgical consultation. CT abdomen and pelvis was obtained which showed no bowel obstruction, mild uncomplicated colitis less likely. She developed hypotesnion whihc resolved with IV fluids, Midodrine and 1 dose of steroids. Her AM cortisol level was low but ACTH stim test demonstrated appropriate results. General surgery has been following the patient General surgery plans on doing an EGD today. Patient stated that she is able to tolerate her full liquid diet. She denies any abdominal pain. She stated that she still having nausea and the antiemetics are helping. Patient is worried if she does not eat solid food she become malnutrition. Patient states that at her age she's not worried about weight loss and would like to have the lap band re moved so that she can eat like a normal person Objective - Vital Signs Vital signs: Vital Signs Temp 98.6 F 11/02/21 08:00 Pulse 85 11/02/21 08:00 Resp 16 11/02/21 08:00 BP 120/82 11/02/21 08:00 Pulse Ox 98 11/02/21 08:00 Intake & Output 11/01/21 11/02/21 11/02/21 18:59 06:59 18:59 Intake Total 760 Output Total 200 Balance 560 Intake: Oral 760 Output: Urine 200 Other: # Voids 4 2 2 - Exam General examination - Alert and Oriented 3 in NAD, appears chronically debilitated Heart - + S1S2 no murmurs Lungs - diminished breath sounds bilaterally Abdomen soft NT ND +ve BS Extremities - No edema 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 Psych - Calm and cooperative - Labs CBC & Chem 7: 11/02/21 03:31 11/02/21 03:31 Labs: Abnormal Lab Results - Last 24 Hours (Table) 11/01/21 11/01/21 11/01/21 Range/Units 11:57 16:51 20:48 RBC (3.80-5.40) m/uL MCV (80.0-100.0) fL MCH (25.0-35.0) pg Macrocytosis Sodium (137-145) mmol/L Potassium (3.5-5.1) mmol/L Chloride (98-107) mmol/L Carbon Dioxide (22-30) mmol/L POC Glucose (mg/dL) 102 H 106 H 106 H (75-99) mg/dL Calcium (8.4-10.2) mg/dL AST (14-36) U/L Total Protein (6.3-8.2) g/dL Albumin (3.5-5.0) g/dL 11/02/21 11/02/21 Range/Units 03:31 03:31 RBC 3.04 L (3.80-5.40) m/uL MCV 114.9 H (80.0-100.0) fL MCH 38.1 H (25.0-35.0) pg Macrocytosis Marked A Sodium 134 L (137-145) mmol/L Potassium 3.1 L (3.5-5.1) mmol/L Chloride 111 H (98-107) mmol/L Carbon Dioxide 20 L (22-30) mmol/L POC Glucose (mg/dL) (75-99) mg/dL Calcium 6.6 L (8.4-10.2) mg/dL AST 41 H (14-36) U/L Total Protein 4.7 L (6.3-8.2) g/dL Albumin 2.1 L (3.5-5.0) g/dL Assessment and Plan Assessment: Intractable nausea vomiting -Gen. surgery following an plan is for EGD today -Decrease IV fluids to 75 mL an hour -Replete electrolytes as needed -GI series shows that the LAP-BAND is in satisfactory position and there are no signs of obstruction. -Resume IV Zosyn for possible colitis however doubt clinically Episode of hypotension likely due to dehydration -Resolved with fluids, midodrine and a dose of steroids -Patient's blood pressure has improved -Continue to hold home BP meds -Patient ruled out for adrenal insufficiency Diabetes mellitus -Sliding-scale insulin -Accu-Cheks Hyperlipidemia -Resume statin History of hypertension -Holding all BP meds due to low blood pressure DVT prophylaxis: Subcu heparin Discussed with: Patient and nurse Anticipated discharge: Pending clinical course Anticipated discharge place: PT OT to eval
[2021-11-02 11:40] LABS: Glucose,Whole Blood 72 mg/dL (75-99)
[2021-11-02] MEDS: POTASSIUM CHLORIDE ER 20 MEQ TAB.ER PO SCH ×2 (11:43→15:48)
[2021-11-02] MEDS ORDERED: DEXTROSE 50% SYRINGE 50 ML IVP ONE (11:44)
[2021-11-02] MEDS ORDERED: IV FLUID CONTINUATION 600 ML IV ONE (12:15)
[2021-11-02] MEDS ORDERED: LIDOCAINE 1% INJ 10MG/ML (20 ML MDV) ONE (12:17)
[2021-11-02] MEDS ORDERED: PROPOFOL 10 MG/ML 20 ML VIAL IV ONE (12:17)
--- NOTE | 2021-11-02 12:36 | P.PCN ---
Date of Procedure: 11/02/21 Procedure(s) Performed: Preoperative Dx: Dysphagia, GERD Postoperative Dx: Gastritis, distal esophagitis, short segment Kim's esophagus, gastric polyps Procedure: EGD with Bx Anesthesia: Sedation Endoscopist: Dr. Mora Specimens: Antrum, distal esophagus, gastric polyps Endoscopic Procedure: The patient was on the endoscopy table in the left decubitus position. The Olympus gastroscope was inserted into the oropharynx and passed under direct visualization to the region of the third portion of the duodenum. From that point the scope was slowly withdrawn inspecting all surfaces carefully. There were no neoplastic inflammatory or polypoid lesions throughout the duodenum. The pylorus was widely patent. The stomach was carefully inspected. There was mild gastritis present. A biopsy of the antrum took place to rule out H. pylori. the patient had a few small polyps one of which was removed using the biopsy forceps. Retroflexion revealed a normal band plication without evidence of erosion or prolapse. At the distal esophagus there was mild esophagitis present and a short segment of Kim's esophagus. Biopsies of the distal esophagus and the Kim's changes was taken. The remainder the esophagus appeared normal. The patient was then taken to the recovery room in stable condition per anesthesia guidelines. Recommendations: Await biopsy results. Continue regular diet. Patient is interested in band removal. This will be arranged. Continue antiacid therapy for now. Will require repeat EGD 2-3 years.
[2021-11-02 16:48] LABS: Glucose,Whole Blood 82 mg/dL (75-99)
[2021-11-02 20:37] LABS: Glucose,Whole Blood 105 mg/dL (75-99)
[2021-11-02] MEDS: ATORVASTATIN 10 MG TAB PO SCH (21:41)
[2021-11-03] MEDS: SODIUM CHLORIDE 0.9% 1,000 ML IV SCH (03:23)
[2021-11-03] MEDS: LEVOTHYROXINE 25 MCG TAB PO SCH (05:11)
[2021-11-03] MEDS: PIPERACILLIN-TAZOBACTAM 3.375 GM in SODIUM CHLORIDE 0.9% 100 ML IVPB SCH (05:11)
[2021-11-03 07:02] LABS: Glucose,Whole Blood 93 mg/dL (75-99)
[2021-11-03] MEDS: HEPARIN SODIUM,PORCINE/PF 5,000 UNIT/0.5 ML SYRINGE SQ SCH (07:14)
[2021-11-03] MEDS: PANTOPRAZOLE 40 MG/10 ML VIAL IVP SCH (07:14)
[2021-11-03] MEDS: GABAPENTIN 300 MG CAP PO SCH (07:14)
[2021-11-03] MEDS: INSULIN ASPART (NovoLOG) 100 UNIT/ML VIAL SQ SCH ×2 (07:15→11:36)
[2021-11-03 08:26] VITALS: BP 118/70; PULSE 90; RESP 16; TEMP 98.2
[2021-11-03 09:32] LABS: Basophils # (A) 0.06 X 10*3/uL (0.00-0.10); Basophils % (A) 1.2 %; Eosinophils # (A) 0.16 X 10*3/uL (0.04-0.35); Eosinophils % (A) 3.2 %; HCT 33.9 % (37.2-46.3); HGB 11.1 g/dL (12.0-15.0); Immature Grans, Automated 0.4 %; Lymphocytes # (A) 2.22 X 10*3/uL (0.90-5.00); Lymphocytes % (A) 44.7 %; MCH 36.8 pg (27.0-32.0); MCHC 32.7 g/dL (32.0-37.0); MCV 112.3 fL (80.0-97.0); Mean Platelet Volume 9.9 fL (9.5-12.2); Monocytes # (A) 0.58 X 10*3/uL (0.20-1.00); Monocytes % (A) 11.7 %; NRBC Per 100 WBC 0 /100 WBCS (0.0-0.0); Neutrophils # (A) 1.93 X 10*3/uL (1.80-7.70); Neutrophils % (A) 38.8 %; Platelet Count 210 X 10*3/uL (140-440); RBC 3.02 X 10*6/uL (4.10-5.20); RDW 14.3 % (11.5-14.5); WBC 4.97 X 10*3/uL (4.50-10.00)
[2021-11-03 09:43] LABS: Magnesium 1.8 mg/dL (1.5-2.4)
[2021-11-03 09:53] LABS: African American GFR (CKD) 106.7 (60.0-200.0); Anion Gap 7.8 mmol/L (10.00-18.00); BUN/Creat Ratio 13.5 Ratio (12.00-20.00); Blood Urea Nitrogen 7.8 mg/dL (9.0-27.0); Calcium 7.5 mg/dL (8.7-10.3); Carbon Dioxide 19.4 mmol/L (20.0-27.5); Non-African American GFR(CKD) 92.1 (60.0-200.0); Potassium 4.3 mmol/L (3.5-5.5)
[2021-11-03 11:37] LABS: Glucose,Whole Blood 108 mg/dL (75-99)
--- NOTE | 2021-11-03 12:12 | P.PN ---
Subjective Progress Note Date: 11/03/21 CHIEF COMPLAINT: Nausea, vomiting HISTORY OF PRESENT ILLNESS: Agent is seen and examined sitting up in bed. Yesterday she underwent EGD with findings of gastritis, distal esophagitis, short segment of Kim's esophagus and gastric polyps. Patient states she is doing well. She was able to eat solid foods for the first time in years. She denies any abdominal pain, nausea, or vomiting. Patient verbalizing wanting to go home. PHYSICAL EXAM: VITAL SIGNS: Reviewed. GENERAL: Well-developed in no acute distress. HEENT: No sclera icterus. Extraocular movements grossly intact. Moist buccal mucosa. Head is atraumatic, normocephalic. ABDOMEN: Soft. Nondistended. Nontender. NEUROLOGIC: Alert and oriented. Cranial nerves II through XII grossly intact. ASSESSMENT: 1. Nausea and vomiting 2. History of lap band 3. Hypotension 4. Hypokalemia 5. Hyponatremia 6. Diabetes mellitus PLAN: 1. Regular diet 2. Glucerna supplement ordered 3. Continue with antiemetics as needed 4. Continue with Protonix daily 5. Status post EGD 6. Status post fluid removal from lap band 7. Patient is cleared by general surgery for discharge. She may follow-up in 2 weeks to discuss further possible lap band removal. The impression and plan of care has been dictated as directed. Dr. Mora I performed a history and examination of this patient, discussed the same with the dictator. I agree with the dictator's note ,documented as a scribe. Any additional findings or plans will be noted.. I have personally seen and examined the patient, reviewed the REPACKER /PAs history, exam and MDM and agree with the assessment and plan as written. Based on total visit time, I have performed more than 50% of the visit. As above: Patient doing well today. Tolerating diet. May discharge. Patient will contact our office to set up lap band removal. Objective - Vital Signs Vital signs: Vital Signs Temp 98.2 F 11/03/21 08:00 Pulse 90 11/03/21 08:00 Resp 16 11/03/21 08:00 BP 118/70 11/03/21 08:00 Pulse Ox 99 11/03/21 08:00 Intake & Output 11/02/21 11/03/21 11/03/21 18:59 06:59 18:59 Intake Total 1240 Output Total 200 Balance 1040 Intake: IV 100 Oral 1140 Output: Urine 200 Other: # Voids 4 - Labs CBC & Chem 7: 11/03/21 06:13 11/03/21 06:13 Labs: Abnormal Lab Results - Last 24 Hours (Table) 11/02/21 11/03/21 11/03/21 Range/Units 20:31 06:13 06:13 RBC 3.02 L (4.10-5.20) X 10*6/uL Hgb 11.1 L (12.0-15.0) g/dL Hct 33.9 L (37.2-46.3) % MCV 112.3 H (80.0-97.0) fL MCH 36.8 H (27.0-32.0) pg Chloride 113 H (96-109) mmol/L Carbon Dioxide 19.4 L (20.0-27.5) mmol/L Anion Gap 7.80 L (10.00-18.00) mmol/L BUN 7.8 L (9.0-27.0) mg/dL POC Glucose (mg/dL) 105 H (75-99) mg/dL Calcium 7.5 L (8.7-10.3) mg/dL 11/03/21 Range/Units 11:34 RBC (4.10-5.20) X 10*6/uL Hgb (12.0-15.0) g/dL Hct (37.2-46.3) % MCV (80.0-97.0) fL MCH (27.0-32.0) pg Chloride (96-109) mmol/L Carbon Dioxide (20.0-27.5) mmol/L Anion Gap (10.00-18.00) mmol/L BUN (9.0-27.0) mg/dL POC Glucose (mg/dL) 108 H (75-99) mg/dL Calcium (8.7-10.3) mg/dL
--- NOTE | 2021-11-03 13:23 | P.DS ---
Providers Date of admission: 10/30/21 22:13 Expected date of discharge: 11/03/21 Attending physician: Nicola Rehman MD Consults: 10/30/21 22:14 Consult Physician Routine Consulting Provider: Miguel Mora Consult Reason/Comments: lap band evaluation Do you want consulting provider notified?: Yes Primary care physician: Jozef Gallegos MD Hospital Course: Discharge Diagnosis: Intractable nausea and vomiting Episode of hypotension likely due to dehydration Diabetes mellitus Hyperlipidemia History of hypertension Hospital Course: Patient is a 70 yo CF with known prior lap band surgery, DM, HTN, and hypothyroidism who presented wtto the ED via EMS fofr nausea and vomiting X 2 months. On arrival to the ER she underwent an extensive evaluation. Initial vital signs were within normal limits. Initial laboratory analysis showed a sodium of 134, potassium 3.1, glucose 148 lactic acid 2.2, magnesium 1.4. She was started on IV fluids and her magnesium and potassium were replaced. X-ray demonstrated a displaced lap band. She was admitted with surgical consultation. CT abdomen and pelvis was obtained which showed no bowel obstruction, mild uncomplicated colitis less likely. She developed hypotesnion whihc resolved with IV fluids, Midodrine and 1 dose of steroids. Her AM cortisol level was low but ACTH stim test demonstrated appropriate results. General surgery has been following the patient. They removed fluid from the lap band. They also did an EGD that showed gastritis. Patient was started on Carafate and her PPI was increased to twice a day. Patient wanted her lab band to be removed as she believes it is causing her symptoms. Gen. surgery said they would arrange to remove it as outpatient. At time of discharge patient reported that her nausea vomiting was better and she is able to tolerate her diet as well as taking her medications. Patient's blood pressure meds were held. Her Lasix was decreased to half the dose. Patient states that she feels safe going home. She was deemed stable for discharge. She was instructed to follow with general surgery. Patient seen and examined at bedside.[] Vital signs reviewed and stable. General: [non toxic], [no distress], [appears at stated age] appears chronically debilitated Derm: [warm], [dry] Head: [atraumatic], [normocephalic], [symmetric] Eyes: [EOMI], [no lid lag], [anicteric sclera] Mouth: [no lip lesion], [mucus membranes moist] Cardiovascular: [S1S2 reg], [no murmur], [positive posterior tibial pulse bilateral], Lungs: [CTA bilateral], [no rhonchi, no rales] , [no accessory muscle use] Abdominal: [soft], [ nontender to palpation], [no guarding], [no appreciable organomegaly] Ext: [no gross muscle atrophy], [no edema], [no contractures] Neuro: [ CN II-XI grossly intact], [no focal neuro deficits] Psych: [Alert], [oriented], [appropriate affect] A total of [33] minutes of time were spent preparing this complex discharge summary . Patient Condition at Discharge: Fair Plan - Discharge Summary Discharge Rx Participant: Yes New Discharge Prescriptions: New Sucralfate [Carafate] 1 gm PO ACHS #90 tab Continue Levothyroxine Sodium [Synthroid] 25 mcg PO DAILY Gabapentin [Neurontin] 300 mg PO TID Atorvastatin [Lipitor] 10 mg PO HS metFORMIN HCL [Glucophage] 500 mg PO BID Changed Furosemide [Lasix] 20 mg PO DAILY #0 Omeprazole 20 mg PO BID #0 Discontinued metOLazone [Zaroxolyn] 2.5 mg PO DAILY Enalapril [Vasotec] 20 mg PO DAILY Discharge Medication List Atorvastatin [Lipitor] 10 mg PO HS 10/30/21 [History] Gabapentin [Neurontin] 300 mg PO TID 10/30/21 [History] Levothyroxine Sodium [Synthroid] 25 mcg PO DAILY 10/30/21 [History] metFORMIN HCL [Glucophage] 500 mg PO BID 10/30/21 [History] Furosemide [Lasix] 20 mg PO DAILY #0 11/03/21 [Rx] Omeprazole 20 mg PO BID #0 11/03/21 [Rx] Sucralfate [Carafate] 1 gm PO ACHS #90 tab 11/03/21 [Rx] Follow up Appointment(s)/Referral(s): Miguel Mora MD [Medical Doctor] - 11/17/21 3:15 pm Jozef Gallegos MD [Primary Care Provider] - 11/05/21 9:45 am [facility] Visiting Nurse, [NON-STAFF] - Activity/Diet/Wound Care/Special Instructions: PATIENT'S OWN MEDS BEING STORED IN PHARMACY. Discharge Disposition: HOME WITH HOME HEALTH SERVICES
== END 2021-11-03 14:51 | disposition home health service (06) | DRG 327 ==
LOC: EC 20:08 → EEVIPCON 20:08 → 4SSUR 22:13 → EEVIPCON 22:13 → 4SSUR 23:19
PROVIDERS: ADMIT Internal Medicine; ATTEND Internal Medicine
PROC: 0DW63CZ Revision of Extraluminal Device in Stomach, Percutaneous Approach (ICD-10-PCS; principal; 2021-11-01)
PROC: 0DB78ZX Excision of Stomach, Pylorus, Via Natural or Artificial Opening Endoscopic, Diagnostic (ICD-10-PCS; 2021-11-02)
PROC: 0DB38ZX Excision of Lower Esophagus, Via Natural or Artificial Opening Endoscopic, Diagnostic (ICD-10-PCS; 2021-11-02)
PROC: 0DB68ZX Excision of Stomach, Via Natural or Artificial Opening Endoscopic, Diagnostic (ICD-10-PCS; 2021-11-02)
DX: K95.09 Other complications of gastric band procedure (principal); E87.1 Hypo-osmolality and hyponatremia; E87.2 Acidosis; K22.70 Barrett's esophagus without dysplasia; K31.7 Polyp of stomach and duodenum; E03.9 Hypothyroidism, unspecified; E11.9 Type 2 diabetes mellitus without complications; E78.5 Hyperlipidemia, unspecified; Y73.8 Miscellaneous gastroenterology and urology devices associated with adverse incidents, not elsewhere classified; E86.0 Dehydration; E83.42 Hypomagnesemia; E87.6 Hypokalemia; F32.A Depression, unspecified; F41.9 Anxiety disorder, unspecified; I10 Essential (primary) hypertension; K21.00 Gastro-esophageal reflux disease with esophagitis, without bleeding; K29.70 Gastritis, unspecified, without bleeding; I95.9 Hypotension, unspecified; K52.9 Noninfective gastroenteritis and colitis, unspecified; Z79.84 Long term (current) use of oral hypoglycemic drugs; Z79.890 Hormone replacement therapy; Z79.899 Other long term (current) drug therapy; Z80.1 Family history of malignant neoplasm of trachea, bronchus and lung; Z80.7 Family history of other malignant neoplasms of lymphoid, hematopoietic and related tissues; Z82.49 Family history of ischemic heart disease and other diseases of the circulatory system; Z87.891 Personal history of nicotine dependence; Z98.84 Bariatric surgery status; Z98.51 Tubal ligation status; Z98.890 Other specified postprocedural states; Z88.6 Allergy status to analgesic agent; R13.10 Dysphagia, unspecified
CPT/HCPCS: 36415; 43239; 74022; 74177; 74240; 80048; 80053; 82533; 83605; 83690; 83735; 84100; 84443; 85025; 85027; 88305; 93005; 96361; 96374; 99285

== ENCOUNTER 2021-11-03 17:03 | Observation (INO) | payer MEDICARE, OTHER ==
[2021-11-03] MEDS ORDERED: SODIUM CHLORIDE 0.9% 500 ML 500 ML IV STA (19:14)
--- NOTE | 2021-11-03 19:37 | ED ---
General Adult HPI - General Chief complaint: Recheck/Abnormal Lab/Rx Stated complaint: Weakness/Diarrhea Time Seen by Provider: 11/03/21 19:09 Source: patient, RN notes reviewed Mode of arrival: wheelchair Limitations: no limitations - History of Present Illness Initial comments: This is a pleasant 70-year-old female who presents to emergency department with a complaint of diarrhea and subsequent weakness. Patient states she was just discharged from this facility at 3 PM, patient states she went home and got to her front door and had an episode of explosive diarrhea. Patient states she then felt weak after having an episode in could not ambulate to her bathroom. Patient denying any other symptomology currently. No current nausea. No abdominal pain. No headache, no fever or chills, no changes in vision or hearing, no sore throat or difficulty with speech, no neck pain, no chest pain or shortness of breath, no abdominal pain, no numbness or tingling, no extremity pain, no skin rashes or lesions. - Related Data Home Medications Medication Instructions Recorded Confirmed Atorvastatin [Lipitor] 10 mg PO HS 10/30/21 11/03/21 Gabapentin [Neurontin] 300 mg PO TID 10/30/21 11/03/21 Levothyroxine Sodium [Synthroid] 25 mcg PO DAILY 10/30/21 11/03/21 metFORMIN HCL [Glucophage] 500 mg PO BID 10/30/21 11/03/21 Previous Rx's Medication Instructions Recorded Furosemide [Lasix] 20 mg PO DAILY #0 11/03/21 Omeprazole 20 mg PO BID #0 11/03/21 Sucralfate [Carafate] 1 gm PO ACHS #90 tab 11/03/21 Allergies Allergy/AdvReac Type Severity Reaction Status Date / Time aspirin Allergy Rash/Hives Verified 11/03/21 20:29 Review of Systems ROS Statement: Those systems with pertinent positive or pertinent negative responses have been documented in the HPI. ROS Other: All systems not noted in ROS Statement are negative. Past Medical History Past Medical History: Diabetes Mellitus, Hyperlipidemia, Hypertension Additional Past Medical History / Comment(s): chronic tremors, chronic edema. History of Any Multi-Drug Resistant Organisms: None Reported Past Surgical History: Tubal Ligation Additional Past Surgical History / Comment(s): lap band surgery 2002. heel spur surgery, nasal surgery. Past Anesthesia/Blood Transfusion Reactions: No Reported Reaction Past Psychological History: Anxiety, Depression Smoking Status: Former smoker, Smoker, current status unknown Past Alcohol Use History: None Reported Past Drug Use History: None Reported - Past Family History Mother Family Medical History: Cancer, Hypertension Additional Family Medical History / Comment(s): colon and lung cancer. Father Additional Family Medical History / Comment(s): multiple myeloma. General Exam - General Exam Comments Initial Comments: Elderly female in no significant distress. Vital signs reviewed. Capillary refill less than 2 seconds. Appears to be adequately hydrated. Limitations: no limitations General appearance: alert, in no apparent distress Head exam: Present: atraumatic, normocephalic, normal inspection Eye exam: Present: normal appearance, PERRL, EOMI. Absent: scleral icterus, conjunctival injection, periorbital swelling ENT exam: Present: normal exam, mucous membranes moist Neck exam: Present: normal inspection. Absent: tenderness, meningismus, lymphadenopathy Respiratory exam: Present: normal lung sounds bilaterally. Absent: respiratory distress, wheezes, rales, rhonchi, stridor Cardiovascular Exam: Present: regular rate, normal rhythm, normal heart sounds. Absent: systolic murmur, diastolic murmur, rubs, gallop, clicks GI/Abdominal exam: Present: soft, normal bowel sounds. Absent: distended, tenderness, guarding, rebound, rigid Extremities exam: Present: normal inspection, full ROM, normal capillary refill. Absent: tenderness, pedal edema, joint swelling, calf tenderness Back exam: Present: normal inspection Neurological exam: Present: alert, oriented X3, CN II-XII intact Psychiatric exam: Present: normal affect, normal mood Skin exam: Present: warm, dry, intact, normal color. Absent: rash Course Vital Signs 11/03/21 11/03/21 11/03/21 17:17 18:53 22:16 Temperature 99.5 F Pulse Rate 115 H 101 H 71 Respiratory 18 20 20 Rate Blood Pressure 168/90 140/96 153/94 O2 Sat by Pulse 99 98 100 Oximetry - Reevaluation(s) Reevaluation #1: 11/03/21 22:51 Medical record is reviewed Symptoms unchanged Patient is informed of results and questions answered Patient in no distress EKG Findings - EKG Comments: EKG Findings:: EKG done at 2011 and read by the ED attending physician reveals sinus rhythm with sinus arrhythmia, rate of 82, baseline artifact in multiple leads, no evidence of acute changes. Normal intervals. Normal QRS otherwise. Medical Decision Making - Medical Decision Making We'll order a general laboratory work and discussed with internal medicine. Patient also saw general surgery when she was here as she also had an upper GI which showed adequate positioning of the gastric lap band. The case was discussed in detail with ED attending physician. Presentation, findings, treatment plan discussed in detail. Case discussed in detail with Dr. Rehman from [facility]. Patient admitted for observation and pulmonary consultation. - Lab Data Result diagrams: 11/03/21 19:52 11/03/21 19:52 Lab Results 11/03/21 11/03/21 11/03/21 Range/Units 19:52 19:52 19:52 WBC 6.5 (3.8-10.6) k/uL RBC 3.57 L (3.80-5.40) m/uL Hgb 13.3 (11.4-16.0) gm/dL Hct 40.7 (34.0-46.0) % MCV 114.0 H (80.0-100.0) fL MCH 37.4 H (25.0-35.0) pg MCHC 32.8 (31.0-37.0) g/dL RDW 13.8 (11.5-15.5) % Plt Count 271 (150-450) k/uL MPV 7.7 Neutrophils % 49 % Lymphocytes % 35 % Monocytes % 9 % Eosinophils % 2 % Basophils % 1 % Neutrophils # 3.2 (1.3-7.7) k/uL Lymphocytes # 2.3 (1.0-4.8) k/uL Monocytes # 0.6 (0-1.0) k/uL Eosinophils # 0.2 (0-0.7) k/uL Basophils # 0.1 (0-0.2) k/uL Macrocytosis Marked A Sodium 136 L (137-145) mmol/L Potassium 3.9 (3.5-5.1) mmol/L Chloride 111 H (98-107) mmol/L Carbon Dioxide 23 (22-30) mmol/L Anion Gap 2 mmol/L BUN 8 (7-17) mg/dL Creatinine 0.56 (0.52-1.04) mg/dL Est GFR (CKD-EPI)AfAm >90 (>60 ml/min/1.73 sqM) Est GFR (CKD-EPI)NonAf >90 (>60 ml/min/1.73 sqM) Glucose 105 H (74-99) mg/dL Plasma Lactic Acid Dario 0.9 (0.7-2.0) mmol/L Calcium 8.0 L (8.4-10.2) mg/dL Phosphorus 2.0 L (2.5-4.5) mg/dL Magnesium 1.8 (1.6-2.3) mg/dL Total Bilirubin 0.8 (0.2-1.3) mg/dL AST 44 H (14-36) U/L ALT 24 (4-34) U/L Alkaline Phosphatase 88 (38-126) U/L Troponin I (0.000-0.034) ng/mL Total Protein 5.6 L (6.3-8.2) g/dL Albumin 2.7 L (3.5-5.0) g/dL Lipase 289 (23-300) U/L 11/03/21 Range/Units 19:52 WBC (3.8-10.6) k/uL RBC (3.80-5.40) m/uL Hgb (11.4-16.0) gm/dL Hct (34.0-46.0) % MCV (80.0-100.0) fL MCH (25.0-35.0) pg MCHC (31.0-37.0) g/dL RDW (11.5-15.5) % Plt Count (150-450) k/uL MPV Neutrophils % % Lymphocytes % % Monocytes % % Eosinophils % % Basophils % % Neutrophils # (1.3-7.7) k/uL Lymphocytes # (1.0-4.8) k/uL Monocytes # (0-1.0) k/uL Eosinophils # (0-0.7) k/uL Basophils # (0-0.2) k/uL Macrocytosis Sodium (137-145) mmol/L Potassium (3.5-5.1) mmol/L Chloride (98-107) mmol/L Carbon Dioxide (22-30) mmol/L Anion Gap mmol/L BUN (7-17) mg/dL Creatinine (0.52-1.04) mg/dL Est GFR (CKD-EPI)AfAm (>60 ml/min/1.73 sqM) Est GFR (CKD-EPI)NonAf (>60 ml/min/1.73 sqM) Glucose (74-99) mg/dL Plasma Lactic Acid Dario (0.7-2.0) mmol/L Calcium (8.4-10.2) mg/dL Phosphorus (2.5-4.5) mg/dL Magnesium (1.6-2.3) mg/dL Total Bilirubin (0.2-1.3) mg/dL AST (14-36) U/L ALT (4-34) U/L Alkaline Phosphatase (38-126) U/L Troponin I <0.012 (0.000-0.034) ng/mL Total Protein (6.3-8.2) g/dL Albumin (3.5-5.0) g/dL Lipase (23-300) U/L Disposition Clinical Impression: General weakness, Chronic diarrhea Disposition: ADMITTED IP TO THIS HOSP Condition: Good Referrals: Jozef Gallegos MD [Primary Care Provider] - 1-2 days Time of Disposition: 22:51
[2021-11-03 20:15] LABS: Basophils # (A) 0.1 k/uL (0-0.2); Basophils % (A) 1 %; Eosinophils # (A) 0.2 k/uL (0-0.7); Eosinophils % (A) 2 %; HCT 40.7 % (34.0-46.0); HGB 13.3 gm/dL (11.4-16.0); Lymphocytes # (A) 2.3 k/uL (1.0-4.8); Lymphocytes % (A) 35 %; MCH 37.4 pg (25.0-35.0); MCHC 32.8 g/dL (31.0-37.0); Macrocytosis Marked; Mean Platelet Volume 7.7; Monocytes # (A) 0.6 k/uL (0-1.0); Monocytes % (A) 9 %; Neutrophils # (A) 3.2 k/uL (1.3-7.7); Neutrophils % (A) 49 %; Platelet Count 271 k/uL (150-450); RBC 3.57 m/uL (3.80-5.40); RDW 13.8 % (11.5-15.5); WBC 6.5 k/uL (3.8-10.6)
[2021-11-03 20:30] LABS: ALT 24 U/L (4-34); AST 44 U/L (14-36); African American GFR (CKD) >90 (>60 ml/min/1.73 sqM); Albumin 2.7 g/dL (3.5-5.0); Alkaline Phosphatase 88 U/L (38-126); Anion Gap 2 mmol/L; Blood Urea Nitrogen 8 mg/dL (7-17); Carbon Dioxide 23 mmol/L (22-30); Chloride 111 mmol/L (98-107); Glucose 105 mg/dL (74-99); Lipase 289 U/L (23-300); Magnesium 1.8 mg/dL (1.6-2.3); Non-African American GFR(CKD) >90 (>60 ml/min/1.73 sqM); Potassium 3.9 mmol/L (3.5-5.1); Sodium 136 mmol/L (137-145); Total Bilirubin 0.8 mg/dL (0.2-1.3); Total Protein 5.6 g/dL (6.3-8.2)
[2021-11-03] MEDS ORDERED: SODIUM CHLORIDE 0.9% 500 ML 500 ML IV ONE (22:51)
[2021-11-03] MEDS ORDERED: ACETAMINOPHEN TAB 325 MG TAB PO PRN (23:30)
[2021-11-03] MEDS ORDERED: NALOXONE 0.4 MG/ML 1 ML VIAL IV PRN (23:30)
[2021-11-03] MEDS ORDERED: ONDANSETRON 4 MG/2 ML VIAL IVP PRN (23:30)
[2021-11-03] MEDS: SODIUM CHLORIDE 0.9% 1,000 ML IV SCH (23:41)
[2021-11-04] MEDS ORDERED: ZOLPIDEM 5 MG TAB PO PRN (01:38)
--- NOTE | 2021-11-04 03:19 | P.HPIM ---
History of Present Illness H&P Date: 11/04/21 Chief Complaint: Generalized weakness 70-year-old female with hypothyroid, diabetes mellitus Patient was hospitalized few days ago and discharged yesterday. She was here for lap band removal due to intractable vomiting she tolerated procedure well and was discharged home however upon arrival to home she had explosive diarrhea and was not able to get up after sitting on the toilet seat. She had her older sister with her who notified EMS and brought her to the hospital by ambulance for evaluation. Patient admits that she didn't feel strong enough to go home however she missed her bed and home and her cat and was stubborn and not to go into rehab. This time she is requesting to go to rehab for short period to regain some strength. Otherwise she denies any other new symptoms she denies any dizziness lightheadedness any falling denies any chest pain trouble rozina thing or abdominal pain Workup in the ED overall unremarkable however shows low phosphorus Review of Systems Pertinent positives as noted in HPI. All other systems were reviewed and are negative Past Medical History Past Medical History: Diabetes Mellitus, Hyperlipidemia, Hypertension Additional Past Medical History / Comment(s): chronic tremors, chronic edema. History of Any Multi-Drug Resistant Organisms: None Reported Past Surgical History: Tubal Ligation Additional Past Surgical History / Comment(s): lap band surgery 2002. heel spur surgery, nasal surgery. Past Anesthesia/Blood Transfusion Reactions: No Reported Reaction Past Psychological History: Anxiety, Depression Smoking Status: Former smoker, Smoker, current status unknown Past Alcohol Use History: None Reported Past Drug Use History: None Reported - Past Family History Mother Family Medical History: Cancer, Hypertension Additional Family Medical History / Comment(s): colon and lung cancer. Father Additional Family Medical History / Comment(s): multiple myeloma. Medications and Allergies Home Medications Medication Instructions Recorded Confirmed Type Atorvastatin [Lipitor] 10 mg PO HS 10/30/21 11/03/21 History Gabapentin [Neurontin] 300 mg PO TID 10/30/21 11/03/21 History Levothyroxine Sodium [Synthroid] 25 mcg PO DAILY 10/30/21 11/03/21 History metFORMIN HCL [Glucophage] 500 mg PO BID 10/30/21 11/03/21 History Furosemide [Lasix] 20 mg PO DAILY #0 11/03/21 11/03/21 Rx Omeprazole 20 mg PO BID #0 11/03/21 11/03/21 Rx Sucralfate [Carafate] 1 gm PO ACHS #90 tab 11/03/21 11/03/21 Rx Allergies Allergy/AdvReac Type Severity Reaction Status Date / Time aspirin Allergy Rash/Hives Verified 11/03/21 20:29 Physical Exam Vitals: Vital Signs Temp Pulse Resp BP Pulse Ox 11/04/21 01:00 89 16 145/104 97 11/03/21 22:16 71 20 153/94 100 11/03/21 18:53 101 H 20 140/96 98 11/03/21 17:17 99.5 F 115 H 18 168/90 99 Intake and Output 11/03/21 11/03/21 11/04/21 14:59 22:59 06:59 Other: Weight 81.647 kg Constitutional: Pressured speech, essential tremors. Cooperative Eyes: Anicteric sclerae, moist conjunctiva, Pupils equal round reactive to light ENMT: NC/AT Oropharynx clear, no erythema, or exudates Neck: Supple, no masses, or JVD No carotid bruits No thyromegaly Lungs: Clear to auscultation Clear to percussion Normal respiratory effort, no accessory muscle use Cardiovascular: Heart regular in rate and rhythm, No murmurs, gallops, or rubs No peripheral edema Abdominal: Soft Nontender, no guarding, rebound or rigidity Abdomen moving with respiration Normoactive bowel sounds No hepatomegaly, No splenomegaly No palpable mass No abdominal wall hernia noted Skin: Normal temperature, tone, texture, turgor No induration No subcutaneous nodules No rash, lesions No ulcers Extremities: No digital cyanosis No clubbing Pedal pulses intact and symmetrical Radial pulses intact and symmetrical No calf tenderness Psychiatric: Alert and oriented to person, place and time Appropriate affect fair judgement Neuro Muscles Strength 4/5 in all 4 extremities Sensation to light touch grossly present throughout Cranial nerves II-XII grossly intact No focal sensory deficits Lymphatics: no palpable cervical or supraclavicular , or inguinal lymph nodes Results CBC & Chem 7: 11/03/21 19:52 11/03/21 19:52 Labs: Abnormal Lab Results - Last 24 Hours (Table) 11/03/21 11/03/21 Range/Units 19:52 19:52 RBC 3.57 L (3.80-5.40) m/uL MCV 114.0 H (80.0-100.0) fL MCH 37.4 H (25.0-35.0) pg Macrocytosis Marked A Sodium 136 L (137-145) mmol/L Chloride 111 H (98-107) mmol/L Glucose 105 H (74-99) mg/dL Calcium 8.0 L (8.4-10.2) mg/dL Phosphorus 2.0 L (2.5-4.5) mg/dL AST 44 H (14-36) U/L Total Protein 5.6 L (6.3-8.2) g/dL Albumin 2.7 L (3.5-5.0) g/dL Assessment and Plan Assessment: Generalized weakness Explicit diarrhea Check for C. diff Supportive care IV fluid hydration PT eval Fall precautions Monitor for refeeding syndrome Patient haven't had any food for over 2 months due to intractable nausea vomiting when she had her lab and currently status post lap band removal Hypophosphatemia Replace phosphorus orally Monitor level Chronic conditions Diabetes mellitus, insulin sliding scale Hypothyroidism home medications Anticipated length of stay less than 2 midnights Full code Heparin subcu 3 times a day
[2021-11-04] MEDS ORDERED: Phosphorus Replacement Protoco 1 EACH MISC MISCELLANE PRN (03:21)
[2021-11-04] MEDS: POTASSIUM PHOSPHATE 10 MMOL in SODIUM CHLORIDE 0.9% 250 ML IV SCH ×2 (06:27→08:41)
[2021-11-04] MEDS ORDERED: LEVOTHYROXINE 25 MCG TAB PO SCH (06:30)
[2021-11-04 06:33] VITALS: RESP 18
[2021-11-04 08:04] LABS: Glucose,Whole Blood 80 mg/dL (75-99)
[2021-11-04] MEDS: INSULIN ASPART (NovoLOG) 100 UNIT/ML VIAL SQ SCH ×2 (08:11→15:30)
[2021-11-04] MEDS: HEPARIN SODIUM,PORCINE/PF 5,000 UNIT/0.5 ML SYRINGE SQ SCH ×2 (08:41→15:34)
[2021-11-04] MEDS: SUCRALFATE 1 GM TAB PO SCH ×2 (08:42→15:29)
[2021-11-04] MEDS: GABAPENTIN 300 MG CAP PO SCH ×2 (08:42→15:34)
[2021-11-04] MEDS ORDERED: PANTOPRAZOLE 40 MG/10 ML VIAL IV SCH (09:00)
[2021-11-04] MEDS ORDERED: NON FORMULARY DRUG (Omeprazole [Omeprazole] 20 MG Capsule.Dr) PO SCH (09:00)
[2021-11-04 11:55] VITALS: PULSE 86
[2021-11-04 12:58] LABS: Glucose,Whole Blood 75 mg/dL (75-99)
--- NOTE | 2021-11-04 13:44 | P.DS ---
Providers Date of admission: 11/03/21 23:18 Expected date of discharge: 11/04/21 Attending physician: Nicola Rehman MD Primary care physician: Jozef Gallegos MD Hospital Course: Discharge Diagnosis: Generalized weakness Diarrhea that is now watery: Start Imodium Diabetes mellitus Hypothyroidism Hospital Course: 70-year-old female with hypothyroid, diabetes mellitus who was discharged yesterday from our hospital. She had presented with intractable nausea vomiting. She had fluid removed from her lap band. She then had an EGD that showed gastritis. At the time of discharge patient had reported improved nausea vomiting. Gen. surgery arranged for outpatient follow-up to remove the lap band. When patient returned home she was not able to get herself up from the toilet seat so she returned to the ED. Patient amenable to going to detention facility. Patient is stable for discharge. Patient has been accepted to [facility] [place] Patient seen and examined at bedside.[] Vital signs reviewed and stable. General: [non toxic], [no distress], [appears at stated age] Derm: [warm], [dry] Head: [atraumatic], [normocephalic], [symmetric] Eyes: [EOMI], [no lid lag], [anicteric sclera] Mouth: [no lip lesion], [mucus membranes moist] Cardiovascular: [S1S2 reg], [no murmur], [positive posterior tibial pulse bilateral], Lungs: [CTA bilateral], [no rhonchi, no rales] , [no accessory muscle use] Abdominal: [soft], [ nontender to palpation], [no guarding], [no appreciable organomegaly] Ext: [no gross muscle atrophy], [no edema], [no contractures] Neuro: [ CN II-XI grossly intact], [no focal neuro deficits] Psych: [Alert], [oriented], [appropriate affect] A total of [33] minutes of time were spent preparing this complex discharge jumana negrete . Patient Condition at Discharge: Good Plan - Discharge Summary Discharge Rx Participant: No New Discharge Prescriptions: New Acetaminophen Tab [Tylenol] 650 mg PO Q6HR PRN tab PRN Reason: Mild Pain Or Fever > 100.5 Loperamide [Imodium] 2 mg PO TID PRN #21 capsule PRN Reason: Diarrhea Continue Levothyroxine Sodium [Synthroid] 25 mcg PO DAILY Gabapentin [Neurontin] 300 mg PO TID Atorvastatin [Lipitor] 10 mg PO HS Furosemide [Lasix] 20 mg PO DAILY #0 Omeprazole 20 mg PO BID #0 metFORMIN HCL [Glucophage] 500 mg PO BID Sucralfate [Carafate] 1 gm PO ACHS #90 tab Discharge Medication List Atorvastatin [Lipitor] 10 mg PO HS 10/30/21 [History] Gabapentin [Neurontin] 300 mg PO TID 10/30/21 [History] Levothyroxine Sodium [Synthroid] 25 mcg PO DAILY 10/30/21 [History] metFORMIN HCL [Glucophage] 500 mg PO BID 10/30/21 [History] Furosemide [Lasix] 20 mg PO DAILY #0 11/03/21 [Rx] Omeprazole 20 mg PO BID #0 11/03/21 [Rx] Sucralfate [Carafate] 1 gm PO ACHS #90 tab 11/03/21 [Rx] Acetaminophen Tab [Tylenol] 650 mg PO Q6HR PRN tab 11/04/21 [Rx] Loperamide [Imodium] 2 mg PO TID PRN #21 capsule 11/04/21 [Rx] Follow up Appointment(s)/Referral(s): Jozef Gallegos MD [Primary Care Provider] - 1-2 days Discharge Disposition: TRANSFER TO SNF/ECF
[2021-11-04] MEDS: SODIUM CHLORIDE 0.9% 1,000 ML IV SCH (15:29)
[2021-11-04 15:41] VITALS: BP 138/93; TEMP 98.1
[2021-11-04 17:04] LABS: Glucose,Whole Blood 74 mg/dL (75-99)
[2021-11-04] MEDS ORDERED: ATORVASTATIN 10 MG TAB PO SCH (21:00)
== END 2021-11-04 17:21 ==
LOC: EC 17:03 → 6NMEDSUR 23:18
PROVIDERS: ADMIT Internal Medicine; ATTEND Internal Medicine
DX: R53.1 Weakness (principal); R19.7 Diarrhea, unspecified; E11.9 Type 2 diabetes mellitus without complications; E03.9 Hypothyroidism, unspecified; I10 Essential (primary) hypertension; E78.5 Hyperlipidemia, unspecified; F32.A Depression, unspecified; F41.9 Anxiety disorder, unspecified; R60.9 Edema, unspecified; R25.1 Tremor, unspecified; E83.39 Other disorders of phosphorus metabolism; Z87.891 Personal history of nicotine dependence; Z79.899 Other long term (current) drug therapy; Z79.890 Hormone replacement therapy; Z79.84 Long term (current) use of oral hypoglycemic drugs; Z88.6 Allergy status to analgesic agent; Z98.84 Bariatric surgery status; Z71.9 Counseling, unspecified; Z80.1 Family history of malignant neoplasm of trachea, bronchus and lung; Z80.0 Family history of malignant neoplasm of digestive organs; Z82.49 Family history of ischemic heart disease and other diseases of the circulatory system; Z80.7 Family history of other malignant neoplasms of lymphoid, hematopoietic and related tissues
CPT/HCPCS: 96372 ×2; 96361; 96374; 99285; 93005; 97162; 97166; 80053; 83605; 83690; 83735; 84100; 84484; 85025; 87040; G0378 ×2; C9113; J1644

== ENCOUNTER 2022-01-27 11:44 | Day surgery (SDC) | payer MEDICARE, OTHER ==
[2022-01-26 12:59] VITALS: BMI 32.5
[2022-01-27] MEDS ORDERED: DEXAMETHASONE SOD PHOSPHATE 4 MG/ML 1 ML VIAL IV ONE (12:00)
[2022-01-27] MEDS ORDERED: LACTATED RINGERS 1,000 ML IV SCH (12:00)
[2022-01-27] MEDS ORDERED: ONDANSETRON 4 MG/2 ML VIAL IVP ONE (12:00)
[2022-01-27 12:23] LABS: Glucose,Whole Blood 133 mg/dL (70-110)
[2022-01-27] MEDS ORDERED: LACTATED RINGERS 1,000 ML IV ONE ×2 (12:26→14:42)
[2022-01-27] MEDS ORDERED: GLYCOPYRROLATE 0.2 MG/ML 2 ML VIAL ONE (13:57)
[2022-01-27] MEDS ORDERED: ROCURONIUM 10 MG/ML (5 ML VIAL) IV ONE (13:57)
[2022-01-27] MEDS ORDERED: PROPOFOL 10 MG/ML 20 ML VIAL IV ONE (13:57)
[2022-01-27] MEDS ORDERED: LIDOCAINE 2% INJ 20 MG/ML (2 ML VIAL) ONE (13:57)
[2022-01-27] MEDS ORDERED: SUCCINYLCHOLINE CHLORIDE 100 MG/5 ML SYR IV ONE (13:57)
[2022-01-27] MEDS ORDERED: HYDROmorphone (PF) 1 MG/ML ONE (13:57)
[2022-01-27] MEDS ORDERED: fentaNYL (PF) 50 MCG/ML 2 ML AMP ONE (13:57)
[2022-01-27] MEDS ORDERED: MIDAZOLAM 2 MG/2 ML VIAL ONE (13:57)
[2022-01-27] MEDS ORDERED: NEOSTIGMINE 1 MG/ML 10 ML VIAL ONE (13:57)
--- NOTE | 2022-01-27 13:57 | P.GSHP ---
History of Present Illness H&P Date: 01/27/22 Chief Complaint: Dysphagia, band intolerance 71-year-old female here today for elective lap band removal. Patient known to our service from previous lap band placement. Has had progressive dysphagia over the years. Patient is doing better after emptying her band in October. Upper GI was performed which showed no obstruction. CAT scan showed no definite erosion or prolapse. The patient had an EGD as well that showed gastritis gastric polyps Kim's esophagus. Patient has transportation issues and has only now been able to come in for lap band removal. Past Medical History Past Medical History: Asthma, Diabetes Mellitus, Hyperlipidemia, Hypertension, Osteoarthritis (OA), Pneumonia, Thyroid Disorder Additional Past Medical History / Comment(s): 10/30/21 intractable nausea and vomiting with an episode of hypotension, nausea and vomiting for 2 months, severe gastrtis. Neuropathy bilateral feet, severe essential tremors, chronic lower extremity edema, gastric polyps, debi's esophagus, gastritis, colon polyp, occasional low back pain, hypothyroid. Hx head injury as a kid. States has to have some toes amputated after this surgery, unable to walk or be on feet for more than 5 minutes at a time. History of Any Multi-Drug Resistant Organisms: None Reported Past Surgical History: Bariatric Surgery, Tubal Ligation Additional Past Surgical History / Comment(s): 11/02/21 EGD/biopsies, colonoscopy, 2002 lap banding, D&C, left heel spur, sinus surgery, bilateral cataract removals. Past Anesthesia/Blood Transfusion Reactions: Motion Sickness Past Psychological History: Anxiety, Depression Additional Psychological History / Comment(s): She has a public legal guardian "to help with government paperwork, has petitioned to get rid of it." Smoking Status: Former smoker Past Alcohol Use History: Daily Additional Past Alcohol Use History / Comment(s): Started smoking in 5 and quit in 1983. 1-2 glasses of wine per day in the evenings to help with her tremors. Past Drug Use History: None Reported - Past Family History Mother Family Medical History: Cancer, Hypertension Additional Family Medical History / Comment(s): Colon and lung cancer. Father Family Medical History: Cancer Additional Family Medical History / Comment(s): Multiple myeloma. Sister(s) Family Medical History: Cancer Medications and Allergies Home Medications Medication Instructions Recorded Confirmed Type Atorvastatin [Lipitor] 10 mg PO HS 10/30/21 01/26/22 History Gabapentin [Neurontin] 300 mg PO TID 10/30/21 01/26/22 History Levothyroxine Sodium [Synthroid] 25 mcg PO DAILY 10/30/21 01/26/22 History metFORMIN HCL [Glucophage] 500 mg PO BID 10/30/21 01/26/22 History Furosemide [Lasix] 20 mg PO DAILY #0 11/03/21 01/26/22 Rx Omeprazole 20 mg PO BID #0 11/03/21 01/26/22 Rx Sucralfate [Carafate] 1 gm PO ACHS #90 tab 11/03/21 01/26/22 Rx Loperamide [Imodium] 2 mg PO TID PRN #21 capsule 11/04/21 01/26/22 Rx Allergy Pill (Otc)Unknown Name 1 tab PO DAILY 01/26/22 01/26/22 History Allergies Allergy/AdvReac Type Severity Reaction Status Date / Time aspirin Allergy Rash/Hives Verified 01/26/22 12:25 diphenhydramine Allergy Asthma Verified 01/26/22 12:26 [From Benadryl] Attack Cholestrol Med Allergy Arms Uncoded 01/26/22 13:02 cramped up Surgical - Exam Vital Signs Temp Pulse Resp BP Pulse Ox 99 F 115 H 18 192/88 95 01/27/22 12:11 01/27/22 12:11 01/27/22 12:11 01/27/22 12:11 01/27/22 12:11 Physical exam: General: Well-developed, well-nourished HEENT: Normocephalic, sclerae nonicteric Abdomen: Nontender, nondistended Extremities: No edema Neuro: Alert and oriented Results - Labs 01/27/22 12:20 Abnormal Lab Results - Last 24 Hours (Table) 01/27/22 Range/Units 12:21 POC Glucose (mg/dL) 133 H (70-110) mg/dL Diabetes panel 01/27/22 Range/Units 12:20 Potassium 3.8 (3.5-5.1) mmol/L Pituitary panel 01/27/22 Range/Units 12:20 Potassium 3.8 (3.5-5.1) mmol/L Adrenal panel 01/27/22 Range/Units 12:20 Potassium 3.8 (3.5-5.1) mmol/L Assessment and Plan (1) Intractable nausea and vomiting Narrative/Plan: Will proceed with laparoscopic, possible open lap band removal at this time. Risks of bleeding, infection, perforation, conversion, abscess, persistent dysphagia reviewed. She understands and wishes to proceed. Current Visit: No Status: Acute Code(s): R11.2 - NAUSEA WITH VOMITING, UNSPECIFIED SNOMED Code(s): 037528245
[2022-01-27] MEDS ORDERED: BUPIVACAIN-EPI 0.25%-1:200,000 30 ML VIAL SQ ONE (14:28)
[2022-01-27] MEDS ORDERED: HYDROcodone/APAP 5-325MG 1 EACH TAB PO PRN (15:39)
[2022-01-27] MEDS ORDERED: traMADol 50 MG TAB PO PRN (15:39)
[2022-01-27] MEDS ORDERED: NALOXONE 0.4 MG/ML 1 ML VIAL IV PRN (15:39)
--- NOTE | 2022-01-27 15:44 | P.OP ---
Date of Procedure: 01/27/22 Procedure(s) Performed: PREOPERATIVE DIAGNOSIS: Band intolerance/intermittent vomiting POSTOPERATIVE DIAGNOSIS: Same PROCEDURE: Laparoscopic lap band removal SURGEON: Abby EBL: 25 mL ANESTHESIA: General COMPLICATIONS: None OPERATIVE PROCEDURE: The patient was brought and placed on the operating room table in the supine position. The patient was placed under general anesthesia at that time. The patient was then placed in lithotomy. The abdomen was prepped and draped in the usual sterile fashion. The previous port incision was localized and then incised using a scalpel. The port was easily excised using electrocautery. Entrance into the peritoneal cavity occurred using a 5 mm optical trocar through the old trocar entrance site. Insufflation took place to 15 mmHg. A right subxiphoid 5 mm trocar was placed. This was then removed and the medium Amol hook was used to elevate the left lobe of the liver anteriorly. An additional 5 mm trocar was placed under direct visualization in the left lateral upper quadrant. The original 5 mm trocar was switched to a 15 mm trocar. A additional 5 mm trocar was placed in the right upper quadrant under direct dilatation. There were adhesions to the band in the buccal that were lysed using both the LigaSure and electrocautery. The band was then cut using the laparoscopic jyoti. The band was then removed easily in 2 portions through the 15 mm trocar site. The stomach itself was inspected and revealed no evidence of erosion or prolapse. The trochars were removed. The fascia at the 15 mm site was closed using a [id number] Matthew-Sb 0 Vicryl stitch. There was some oozing at the left inferior needle poke from the Matthew-Sb through the fascia. A #1 Vicryl suture was then used to pass a [id number] suture around that oozing point with no further bleeding seen. The subcutaneous tissues at the port site was closed using a 3-0 Vicryl suture. The skin at all 4 incision sites were closed using 4-0 Monocryl sutures. Skin glue was then applied. DISPOSITION: Stable to recovery room
[2022-01-27 15:48] VITALS: TEMP 97.5
[2022-01-27] MEDS ORDERED: LABETALOL SYRINGE 5 MG/ML IVP ONE (15:55)
[2022-01-27] MEDS: HYDROmorphone 0.5 MG/0.5 ML SYRINGE IVP PRN ×3 (15:56→16:32)
[2022-01-27 16:08] LABS: Glucose,Whole Blood 184 mg/dL (70-110)
[2022-01-27] MEDS ORDERED: HYDROcodone/APAP 5-325MG 1 EACH TAB PO ONE (17:20)
[2022-01-27 17:50] VITALS: BP 160/82; PULSE 90; RESP 16
== END 2022-01-27 18:30 | disposition home or self-care (01) ==
LOC: OR 11:44
PROVIDERS: ATTEND Surgery
DX: R11.2 Nausea with vomiting, unspecified (principal); E66.01 Morbid (severe) obesity due to excess calories; R13.10 Dysphagia, unspecified; J45.909 Unspecified asthma, uncomplicated; E78.5 Hyperlipidemia, unspecified; I10 Essential (primary) hypertension; E11.42 Type 2 diabetes mellitus with diabetic polyneuropathy; E03.9 Hypothyroidism, unspecified; M19.90 Unspecified osteoarthritis, unspecified site; G25.0 Essential tremor; F41.9 Anxiety disorder, unspecified; F32.A Depression, unspecified; M54.50 Low back pain, unspecified; K22.70 Barrett's esophagus without dysplasia; K21.9 Gastro-esophageal reflux disease without esophagitis; Z68.36 Body mass index [BMI] 36.0-36.9, adult; Z87.01 Personal history of pneumonia (recurrent); Z87.891 Personal history of nicotine dependence; Z79.899 Other long term (current) drug therapy; Z79.890 Hormone replacement therapy; Z88.6 Allergy status to analgesic agent; Z88.8 Allergy status to other drugs, medicaments and biological substances; Z86.010 Personal history of colon polyps; Z98.51 Tubal ligation status; Z98.42 Cataract extraction status, left eye; Z98.41 Cataract extraction status, right eye; Z80.0 Family history of malignant neoplasm of digestive organs; Z80.1 Family history of malignant neoplasm of trachea, bronchus and lung; Z82.49 Family history of ischemic heart disease and other diseases of the circulatory system; Z80.7 Family history of other malignant neoplasms of lymphoid, hematopoietic and related tissues
CPT/HCPCS: 84132; 43774; J2250; J1100; J2710; J0690; J2405; J3010; J1170 ×2; J0330; J2704; J2001

== ENCOUNTER 2022-07-11 14:19 | Inpatient (IN) | payer MEDICARE, OTHER ==
--- NOTE | 2022-07-11 14:26 | ED ---
General Adult HPI - General Stated complaint: Diarrhea Time Seen by Provider: 07/11/22 14:24 - History of Present Illness Initial comments: Dictation was produced using [employer] dictation software. please excuse any grammatical, word or spelling errors. Chief Complaint: 58-year-old male presents emergency department for acute kidney failure History of Present Illness: 58-year-old male presents emergency department for acute kidney injury. Patient was transferred from [facility]. He has history of kidney stones. Patient has been having left-sided flank pain for the last 3 days. He went to [facility] was evaluated. It work performed that showed kidney stone. He is also found to have elevated renal markers suspicious for acute kidney injury. Patient states the pain is not terrible. He does have established care with Dr. Corbett. The ROS documented in this emergency department record has been reviewed and confirmed by me. Those systems with pertinent positive or negative responses have been documented in the HPI. All other systems are other negative and/or noncontributory. PHYSICAL EXAM: General Impression: Alert and oriented x3, not in acute distress HEENT: Normocephalic atraumatic, extra-ocular movements intact, pupils equal and reactive to light bilaterally, mucous membranes moist. Cardiovascular: Heart regular rate and rhythm Chest: Able to complete full sentences, no retractions, no tachypnea Abdomen: abdomen soft, non-tender, non-distended, no organomegaly Musculoskeletal: Pulses present and equal in all extremities, no peripheral edema Motor: no focal deficits noted Neurological: CN II-XII grossly intact, no focal motor or sensory deficits noted Skin: Intact with no visualized rashes Psych: Normal affect and mood ED course: 58-year-old no transferred from [place] emergency department for further care. Vital signs upon arrival are within acceptable limits. Chest or documentation was reviewed. Patient did have a computed tomography scan abdomen and pelvis which showed 10 elderly calculus in the left proximal ureter causing nephrosis patient's creatinine is elevated 2.5 and BUN is 29. Patient has no history of kidney dysfunction. Patient be admitted to medicine with nephrology and urology consulted. Nursing notes and chart review was performed Critical Care: no Critical Care time: n/a - Related Data Home Medications Medication Instructions Recorded Confirmed Atorvastatin [Lipitor] 10 mg PO HS 10/30/21 01/26/22 Gabapentin [Neurontin] 300 mg PO TID 10/30/21 01/26/22 Levothyroxine Sodium [Synthroid] 25 mcg PO DAILY 10/30/21 01/26/22 metFORMIN HCL [Glucophage] 500 mg PO BID 10/30/21 01/26/22 Allergy Pill (Otc)Unknown Name 1 tab PO DAILY 01/26/22 01/26/22 Previous Rx's Medication Instructions Recorded Furosemide [Lasix] 20 mg PO DAILY #0 11/03/21 Omeprazole 20 mg PO BID #0 11/03/21 Sucralfate [Carafate] 1 gm PO ACHS #90 tab 11/03/21 Loperamide [Imodium] 2 mg PO TID PRN #21 capsule 11/04/21 traMADol HCl [Ultram] 50 mg PO Q6H PRN #10 tab 01/27/22 Allergies Allergy/AdvReac Type Severity Reaction Status Date / Time aspirin Allergy Rash/Hives Verified 01/26/22 12:25 diphenhydramine Allergy Asthma Verified 01/26/22 12:26 [From Benadryl] Attack Cholestrol Med Allergy Arms Uncoded 01/26/22 13:02 cramped up Review of Systems ROS Statement: Those systems with pertinent positive or pertinent negative responses have been documented in the HPI. ROS Other: All systems not noted in ROS Statement are negative. Past Medical History Past Medical History: Asthma, Diabetes Mellitus, Hyperlipidemia, Hypertension, Osteoarthritis (OA), Pneumonia, Thyroid Disorder Additional Past Medical History / Comment(s): 10/30/21 intractable nausea and vomiting with an episode of hypotension, nausea and vomiting for 2 months, severe gastrtis. Neuropathy bilateral feet, severe essential tremors, chronic lower extremity edema, gastric polyps, debi's esophagus, gastritis, colon poly p, occasional low back pain, hypothyroid. Hx head injury as a kid. States has to have some toes amputated after this surgery, unable to walk or be on feet for more than 5 minutes at a time. History of Any Multi-Drug Resistant Organisms: None Reported Past Surgical History: Bariatric Surgery, Tubal Ligation Additional Past Surgical History / Comment(s): 11/02/21 EGD/biopsies, colonoscopy, 2002 lap banding, D&C, left heel spur, sinus surgery, bilateral cataract removals. Past Anesthesia/Blood Transfusion Reactions: Motion Sickness Past Psychological History: Anxiety, Depression Additional Psychological History / Comment(s): She has a public legal guardian "to help with government paperwork, has petitioned to get rid of it." Smoking Status: Former smoker Past Alcohol Use History: Daily Additional Past Alcohol Use History / Comment(s): Started smoking in 1956 and quit in 1983. 1-2 glasses of wine per day in the evenings to help with her tremors. Past Drug Use History: None Reported - Past Family History Mother Family Medical History: Cancer, Hypertension Additional Family Medical History / Comment(s): Colon and lung cancer. Father Family Medical History: Cancer Additional Family Medical History / Comment(s): Multiple myeloma. Sister(s) Family Medical History: Cancer Disposition Referrals: Ajay Coon MD [Primary Care Provider] - 1-2 days
--- NOTE | 2022-07-11 14:36 | ED ---
General Adult HPI - General Chief complaint: Nausea/Vomiting/Diarrhea Stated complaint: Diarrhea Time Seen by Provider: 07/11/22 14:24 Source: EMS Mode of arrival: EMS Limitations: no limitations - History of Present Illness Initial comments: Dictation was produced using [employer] dictation software. please excuse any grammatical, word or spelling errors. Chief Complaint: 71-year-old female with chronic arthritis, dyslipidemia and diabetes presents to the emergency department for [place] [facility] [place]. History of Present Illness: 71-year-old female she is overwhelmed with care for herself. Patient states she has history of diabetes hypertension. She has has chronic pain which prevents her from ambulating appropriately around her house to perform activities of daily living. Patient states that she is unable to care for self anymore. She states that she is very anxious about trying to go he sings especially given her bilateral feet pain. Patient denies of anything acute. She does have home health care nursing that's 2 hours twice a week. States this not enough. She wants to be admitted to a [place] [facility]. The ROS documented in this emergency department record has been reviewed and confirmed by me. Those systems with pertinent positive or negative responses have been documented in the HPI. All other systems are other negative and/or noncontributory. PHYSICAL EXAM: General Impression: Alert and oriented x3, not in acute distress HEENT: Normocephalic atraumatic, extra-ocular movements intact, pupils equal and reactive to light bilaterally, mucous membranes moist. Cardiovascular: Heart regular rate and rhythm Chest: Able to complete full sentences, no retractions, no tachypnea Abdomen: abdomen soft, non-tender, non-distended, no organomegaly Musculoskeletal: Pulses present and equal in all extremities, lymphedema to the bilateral lower extremities Motor: no focal deficits noted Neurological: CN II-XII grossly intact, no focal motor or sensory deficits noted Skin: Intact with no visualized rashes Psych: Normal affect and mood ED course: 71-year-old female presents emergency department seeking [place] [facility] [place]. Vital signs upon arrival are within acceptable limits. Physical examination is benign. She is in no acute distress. Here case packer spoke with patient's public guardian. Regarding will work on setting up long-term care placement if patient is not admitted to the hospital. Nursing notes and chart review was performed Patient reported to the nurse that she is suicidal and wants to overdose on her medications Critical Care: no Critical Care time: n/a I return evaluation obtained. CBC remarkable. Coag panel is negative. Metabolic panel shows lactic acidosis 3.0. So unclear what is causing this. Patient's magnesium is also 1.5. She'll be admitted observation for medical monitoring. Patient given IV magnesium. - Related Data Home Medications Medication Instructions Recorded Confirmed Atorvastatin [Lipitor] 10 mg PO HS 10/30/21 01/26/22 Gabapentin [Neurontin] 300 mg PO TID 10/30/21 01/26/22 Levothyroxine Sodium [Synthroid] 25 mcg PO DAILY 10/30/21 01/26/22 metFORMIN HCL [Glucophage] 500 mg PO BID 10/30/21 01/26/22 Allergy Pill (Otc)Unknown Name 1 tab PO DAILY 01/26/22 01/26/22 Previous Rx's Medication Instructions Recorded Furosemide [Lasix] 20 mg PO DAILY #0 11/03/21 Omeprazole 20 mg PO BID #0 11/03/21 Sucralfate [Carafate] 1 gm PO ACHS #90 tab 11/03/21 Loperamide [Imodium] 2 mg PO TID PRN #21 capsule 11/04/21 traMADol HCl [Ultram] 50 mg PO Q6H PRN #10 tab 01/27/22 Allergies Allergy/AdvReac Type Severity Reaction Status Date / Time aspirin Allergy Rash/Hives Verified 01/26/22 12:25 diphenhydramine Allergy Asthma Verified 01/26/22 12:26 [From Benadryl] Attack Cholestrol Med Allergy Arms Uncoded 01/26/22 13:02 cramped up Review of Systems ROS Statement: Those systems with pertinent positive or pertinent negative responses have been documented in the HPI. ROS Other: All systems not noted in ROS Statement are negative. Past Medical History Past Medical History: Asthma, Diabetes Mellitus, Hyperlipidemia, Hypertension, Osteoarthritis (OA), Pneumonia, Thyroid Disorder Additional Past Medical History / Comment(s): 10/30/21 intractable nausea and vo miting with an episode of hypotension, nausea and vomiting for 2 months, severe gastrtis. Neuropathy bilateral feet, severe essential tremors, chronic lower extremity edema, gastric polyps, debi's esophagus, gastritis, colon polyp, occasional low back pain, hypothyroid. Hx head injury as a kid. States has to have some toes amputated after this surgery, unable to walk or be on feet for more than 5 minutes at a time. History of Any Multi-Drug Resistant Organisms: None Reported Past Surgical History: Bariatric Surgery, Tubal Ligation Additional Past Surgical History / Comment(s): 11/02/21 EGD/biopsies, colonoscopy, 2002 lap banding, D&C, left heel spur, sinus surgery, bilateral cataract removals. Past Anesthesia/Blood Transfusion Reactions: Motion Sickness Past Psychological History: Anxiety, Depression Smoking Status: Former smoker Past Alcohol Use History: Daily Past Drug Use History: None Reported - Past Family History Mother Family Medical History: Cancer, Hypertension Additional Family Medical History / Comment(s): Colon and lung cancer. Father Family Medical History: Cancer Additional Family Medical History / Comment(s): Multiple myeloma. Sister(s) Family Medical History: Cancer General Exam Limitations: no limitations Course Vital Signs 07/11/22 14:22 Temperature 98.0 F Pulse Rate 107 H Respiratory 18 Rate Blood Pressure 158/100 O2 Sat by Pulse 97 Oximetry Medical Decision Making - Lab Data Result diagrams: 07/11/22 15:16 07/11/22 15:16 Lab Results 07/11/22 07/11/22 07/11/22 Range/Units 15:16 15:16 15:16 WBC 5.5 (3.8-10.6) k/uL RBC 3.74 L (3.80-5.40) m/uL Hgb 13.0 (11.4-16.0) gm/dL Hct 38.1 (34.0-46.0) % MCV 102.0 H (80.0-100.0) fL MCH 34.8 (25.0-35.0) pg MCHC 34.2 (31.0-37.0) g/dL RDW 12.6 (11.5-15.5) % Plt Count 363 (150-450) k/uL MPV 7.1 PT 11.5 (9.0-12.0) sec INR 1.1 (<1.2) APTT 27.9 (22.0-30.0) sec Sodium 133 L (137-145) mmol/L Potassium 3.5 (3.5-5.1) mmol/L Chloride 94 L (98-107) mmol/L Carbon Dioxide 25 (22-30) mmol/L Anion Gap 14 mmol/L BUN 11 (7-17) mg/dL Creatinine 0.76 (0.52-1.04) mg/dL Est GFR (CKD-EPI)AfAm >90 (>60 ml/min/1.73 sqM) Est GFR (CKD-EPI)NonAf 79 (>60 ml/min/1.73 sqM) Glucose 108 H (74-99) mg/dL Plasma Lactic Acid Dario (0.7-2.0) mmol/L Calcium 8.3 L (8.4-10.2) mg/dL Magnesium 1.5 L (1.6-2.3) mg/dL Total Bilirubin 0.5 (0.2-1.3) mg/dL AST 44 H (14-36) U/L ALT 25 (4-34) U/L Alkaline Phosphatase 102 (38-126) U/L Total Protein 6.7 (6.3-8.2) g/dL Albumin 4.1 (3.5-5.0) g/dL 07/11/22 Range/Units 15:16 WBC (3.8-10.6) k/uL RBC (3.80-5.40) m/uL Hgb (11.4-16.0) gm/dL Hct (34.0-46.0) % MCV (80.0-100.0) fL MCH (25.0-35.0) pg MCHC (31.0-37.0) g/dL RDW (11.5-15.5) % Plt Count (150-450) k/uL MPV PT (9.0-12.0) sec INR (<1.2) APTT (22.0-30.0) sec Sodium (137-145) mmol/L Potassium (3.5-5.1) mmol/L Chloride (98-107) mmol/L Carbon Dioxide (22-30) mmol/L Anion Gap mmol/L BUN (7-17) mg/dL Creatinine (0.52-1.04) mg/dL Est GFR (CKD-EPI)AfAm (>60 ml/min/1.73 sqM) Est GFR (CKD-EPI)NonAf (>60 ml/min/1.73 sqM) Glucose (74-99) mg/dL Plasma Lactic Acid Dario 3.0 H* (0.7-2.0) mmol/L Calcium (8.4-10.2) mg/dL Magnesium (1.6-2.3) mg/dL Total Bilirubin (0.2-1.3) mg/dL AST (14-36) U/L ALT (4-34) U/L Alkaline Phosphatase (38-126) U/L Total Protein (6.3-8.2) g/dL Albumin (3.5-5.0) g/dL Disposition Clinical Impression: Lactic acidosis Disposition: ADMITTED IP TO THIS HOSP Condition: Fair Referrals: Ajay Coon MD [Primary Care Provider] - 1-2 days Decision Time: 15:51
[2022-07-11 15:32] LABS: HCT 38.1 % (34.0-46.0); MCH 34.8 pg (25.0-35.0); MCHC 34.2 g/dL (31.0-37.0); Mean Platelet Volume 7.1; Platelet Count 363 k/uL (150-450); RBC 3.74 m/uL (3.80-5.40); RDW 12.6 % (11.5-15.5); WBC 5.5 k/uL (3.8-10.6)
[2022-07-11 15:41] LABS: INR 1.1 (<1.2); Partial Thromboplastin Time 27.9 sec (22.0-30.0); Prothrombin Time 11.5 sec (9.0-12.0)
[2022-07-11 15:42] LABS: ALT 25 U/L (4-34); AST 44 U/L (14-36); African American GFR (CKD) >90 (>60 ml/min/1.73 sqM); Albumin 4.1 g/dL (3.5-5.0); Alkaline Phosphatase 102 U/L (38-126); Anion Gap 14 mmol/L; Blood Urea Nitrogen 11 mg/dL (7-17); Calcium 8.3 mg/dL (8.4-10.2); Carbon Dioxide 25 mmol/L (22-30); Chloride 94 mmol/L (98-107); Glucose 108 mg/dL (74-99); Magnesium 1.5 mg/dL (1.6-2.3); Non-African American GFR(CKD) 79 (>60 ml/min/1.73 sqM); Potassium 3.5 mmol/L (3.5-5.1); Sodium 133 mmol/L (137-145); Total Bilirubin 0.5 mg/dL (0.2-1.3); Total Protein 6.7 g/dL (6.3-8.2)
[2022-07-11] MEDS ORDERED: NALOXONE 0.4 MG/ML 1 ML VIAL IV PRN (15:51)
[2022-07-11 16:13] LABS: Eosinophils # (M) 0.33 k/uL (0-0.7); Lymphocytes # (M) 2.42 k/uL (1.0-4.8); Monocytes # (M) 0.33 k/uL (0-1.0); Neutrophils # (M) 2.42 k/uL (1.3-7.7); Neutrophils % (M) 44 %; Nucleated Red Blood Cells 0 /100 WBC (0-0); Polychromasia Present; Total Cells Counted 100
[2022-07-11] MEDS: MAGNESIUM SULFATE-D5W PMX 1 GM in DEXTROSE/WATER 1 100ML.BAG IVPB SCH ×2 (16:13→17:18)
[2022-07-11] MEDS: SODIUM CHLORIDE 0.9% 1,000 ML IV SCH (16:13)
[2022-07-11 17:31] LABS: Appearance,Urine Clear (Clear); Bacteria,Urine Rare /hpf; Bilirubin,Urine Negative (Negative); Blood,Urine Small (Negative); Color,Urine Yellow; Glucose,Urine (UA) Negative (Negative); Hyaline Casts,Urine 9 /lpf (0-2); Ketones,Urine Negative (Negative); Leukocyte Esterase,Urine Negative (Negative); Nitrite,Urine Negative (Negative); Protein,Urine Negative (Negative); RBC,Urine 3 /hpf (0-5); Specific Gravity,Urine 1.021 (1.001-1.035); Squamous Epithelial Cell,Urine 2 /hpf (0-4); Urobilinogen,Urine <2.0 mg/dL (<2.0); WBC,Urine <1 /hpf (0-5)
[2022-07-12] MEDS: SODIUM CHLORIDE 0.9% 1,000 ML IV SCH ×2 (05:37→22:24)
[2022-07-12] MEDS ORDERED: MELATONIN 3 MG TABLET PO PRN (08:57)
[2022-07-12] MEDS ORDERED: LORazepam 1 MG TAB PO PRN (09:07)
--- NOTE | 2022-07-12 09:12 | P.CN ---
Psychiatric Consult - . Consult date: 07/12/22 Consult:: 07/12/22 08:13 IDENTIFYING DATA: This patient is a 71-year-old female, has a public guardian, currently lives alone in an apartment, is has 2 kids. REASON FOR REFERRAL: Psychiatry was consulted for "suicidal" HISTORY OF PRESENT ILLNESS: The patient presented to the hospital yesterday for shelter placement. According to ER report patient stated that she was not able to care for herself at home and has been dealing with chronic pain in her feet and also a history of diabetes mellitus and hypertension. Patient had mentioned to a nurse in the ER that she had been feeling suicidal with a plan to overdose on medications at home. Patient's sodium was 133 on admission and urine analysis was negative for any infections. Patient was admitted to the medical floor and seen today by credit underwriter. Patient had a one-to-one sitter at her side in her room today. Patient was agreeable to speak to credit underwriter and was somewhat directable during conversation however was rambling. She claims that she has a history of depression and states that she is to be to a "narcissist" and states that she has had "8 years of therapy". She states that she has not been taking medications however and has been doing fairly well however states that within the past year or so her medical problems have increased and she has been feeling more pain in her feet. She states that she realizes that she is getting older and unable to care for herself at home. She claims that she did have some falls at home and her places "filthy" and she is in a unable to clean it. She claims that she has a visiting nurse and audit consultant that comes twice a week however this is not enough for her. She wants placement at this time. She does claim that she has a history also severe gastritis. She claims that she was in a shelter for about 2 weeks back in November however was not able to care for self afterwards. She states that she is "losing my ability to walk" and also states that "my feet are hurting more". She states that she is seeing a body make up artist at this time. She states that her sleep is poor about 4 hours a night and appetite is poor as well she is endorsing mild depression at this time however does state that she was feeling suicidal only at home because she was helpless however now in the hospital states that she is doing better and knows that she will be getting placement. At this time patient denies any suicidal or homical ideations, intent or plan. Patient denies any auditory, visual hallucinations and denies any paranoia or delusions. Patients admits to using no cigarettes or street drugs at this time but does state that drinks approximately a bottle of wine per day. She denies any hisotry of severe withdrawals from etoh but does state that she has a tremor. PAST PSYCHIATRIC HISTORY: Patient has a a history of depression and alcohol use. Patient denies being on any psychiatric medications. She claims that she used to be on antidepressants several years ago however stopped taking them. She cla ims that she used to be in therapy consistently for 8 years after her divorce. Claims that she was once psychiatrically admitted to the mental health unit in this hospital however cannot remember when, several years ago. Patient denies any psychiatric outpatient follow-up. Patient denies any history of suicide attempts in the past. Past Medical History: Asthma, Diabetes Mellitus, Hyperlipidemia, Hypertension, Osteoarthritis (OA), Pneumonia, Thyroid Disorder Additional Past Medical History / Comment(s): 10/30/21 intractable nausea and vomiting with an episode of hypotension, nausea and vomiting for 2 months, severe gastrtis. Neuropathy bilateral feet, severe essential tremors, chronic lower extremity edema, gastric polyps, debi's esophagus, gastritis, colon polyp, occasional low back pain, hypothyroid. Hx head injury as a kid. States has to have some toes amputated after this surgery, unable to walk or be on feet for more than 5 minutes at a time. ALLERGIES: as per EMR. CHEMICAL DEPENDENCY HISTORY: as per HPI. FAMILY PSYCHIATRIC/SUBSTANCE USE HISTORY: Claims that 2 of her father's committed suicide SOCIAL HISTORY: Patient was born and raised in [place]. She states that she completed high school. She denies any legal history, never been to shelter or [facility]. 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 She states that she does have a public guardian, lives in an apartment alone, is , has 2 kids. MENTAL STATUS EXAM: General Appearance: Patient appears to be overweight, short hair, stated age is alert, pleasant, and attempts to be cooperative. Patient appears to have fair hygiene and grooming wearing hospital gown with fair eye contact. Behavior: Patient is calmly lying in bed without any agitated behavior. Attempts to cooperate. Speech: Patient's speech is fluent and nonpressured. Talkative and rambling. Mood/Affect: Patient reports their mood is "better now", affect is congruent Suicidality/Homicidality: Patient denies having any suicidal or homicidal ideation intent or plan. Perceptions: Patient denies any visual hallucinations and denies any auditory hallucinations Though content/process: There is no evidence of any delusional thought content. patient rambles and is tangential/circumstantial. Logical. No paranoia. speaking of her stressors. Memory and concentration: AOX3, grossly intact for the purposes of this session. Can spell "WORLD" backwards Judgment and insight: limited IMPRESSIONS: Major depressive disorder without psychotic features PLAN: -At this time patient DOES NOT meet criteria for inpatient psychiatric admission. -Delirium precautions recommended with patient including - avoiding use of narcotics and RAIL MANAGER sedatives, limit anticholinergic medications when possible, frequent re-orientation, minimize use of restraints, open window shades during the day and close them at night -Would recommend the following medication changes/additions: start remeron 15 mg qhs for insomnia/mood/appetite, melatonin 6 mg qhs prn for insomnia. ciwa protocol with prn ativan to monitor for etoh withdrawal. -Can discontinue 1:1 sitter at this time as patient is not currently an imminent threat to themselves and is oscar to safety. -sort worker to provide patient with outpatient mental health/psychiatry resources for appropriate follow up upon discharge -Communicated plan to patient's nurse -Will continue to follow along tomorrow. -Continue with NH placement -Please contact with any questions.
[2022-07-12] MEDS: SUCRALFATE 1 GM TAB PO SCH (15:30)
[2022-07-12] MEDS: ALBUTEROL HFA INHALER INHALATION PRN (21:14)
[2022-07-12] MEDS: ATORVASTATIN 10 MG TAB PO SCH (22:20)
[2022-07-12] MEDS: MIRTAZAPINE 15 MG TAB PO SCH ×2 (22:20→22:21)
[2022-07-12] MEDS: metFORMIN 500 MG TAB PO SCH (22:20)
[2022-07-13] MEDS ORDERED: FUROSEMIDE 20 MG TAB PO SCH (09:00)
[2022-07-13] MEDS: SODIUM CHLORIDE 0.9% 1,000 ML IV SCH (10:35)
[2022-07-13] MEDS: PANTOPRAZOLE 40 MG TABLET PO SCH (10:35)
[2022-07-13] MEDS: SUCRALFATE 1 GM TAB PO SCH (10:35)
[2022-07-13] MEDS: LEVOTHYROXINE 25 MCG TAB PO SCH (10:35)
[2022-07-13] MEDS: allopurinoL 300 MG TAB PO SCH (10:35)
[2022-07-13] MEDS: metFORMIN 500 MG TAB PO SCH ×2 (10:35→20:47)
--- NOTE | 2022-07-13 14:37 | P.PN ---
Progress Note - Text Progress Note Date: 07/13/22 Interval History: Patient was seen today for psychiatric follow-up. Patient was started on Ann-Marie vicki and melatonin yesterday. Patient took medications last night. Nurse states that patient slept better last night has been eating and also appears to be brighter in her affect. Patient was seen today on her chair and agreeable to speak to medical underwriter. She states that she is doing better overall since yesterday. She claims that she feels safer in the hospital. She claims that she is not feeling suicidal and relates it back to feeling helpless/hopeless at home and not being able to care for herself. She claims that she is okay with placement somewhere. She claims that her depression and anxiety even improving. She states that she was able to sleep better last night with both the Remeron and melatonin. She claims that her appetite is also improving. At this time patient denies any suicidal or homical ideations, intent or plan. Patient denies any auditory, visual hallucinations and denies any paranoia or delusions. Patient denies any side effects from the medications and has been compliant with meds. Mental Status Exam: General Appearance: Patient appears to be overweight, short hair, stated age is alert, pleasant, and attempts to be cooperative. Patient appears to have fair h ygiene and grooming wearing hospital gown with fair eye contact. Behavior: Patient is calmly lying in bed without any agitated behavior. Attempts to cooperate. Speech: Patient's speech is fluent and nonpressured. Talkative Mood/Affect: Patient reports their mood is "better", affect is congruent and brighter Suicidality/Homicidality: Patient denies having any suicidal or homicidal ideation intent or plan. Perceptions: Patient denies any visual hallucinations and denies any auditory hallucinations Though content/process: There is no evidence of any delusional thought content. patient rambles and is tangential/circumstantial. Logical. No paranoia. Memory and concentration: AOX3, grossly intact for the purposes of this session. Judgment and insight: limited, improving mildly IMPRESSIONS: Major depressive disorder without psychotic features PLAN: -At this time patient DOES NOT meet criteria for inpatient psychiatric admission. -Delirium precautions recommended with patient including - avoiding use of narcotics and MATCHER sedatives, limit anticholinergic medications when possible, frequent re-orientation, minimize use of restraints, open window shades during the day and close them at night -Would recommend the following medication changes/additions: remeron 15 mg qhs for insomnia/mood/appetite, increase melatonin 10 mg qhs for insomnia. ciwa protocol with prn ativan to monitor for etoh withdrawal. -steel worker to provide patient with outpatient mental health/psychiatry resources for appropriate follow up upon discharge -Communicated plan to patient's nurse -at this time psychiatry will sign off. -Continue with NH placement -Please contact with any questions.
[2022-07-13] MEDS: MELATONIN 5 MG TABLET PO SCH (20:47)
[2022-07-13] MEDS: ATORVASTATIN 10 MG TAB PO SCH (20:47)
[2022-07-13] MEDS: GABAPENTIN 300 MG CAP PO SCH (20:47)
[2022-07-14] MEDS: LEVOTHYROXINE 25 MCG TAB PO SCH (06:14)
[2022-07-14] MEDS: PANTOPRAZOLE 40 MG TABLET PO SCH (06:15)
[2022-07-14] MEDS: ALBUTEROL HFA INHALER INHALATION PRN ×2 (08:20→15:25)
[2022-07-14] MEDS: allopurinoL 300 MG TAB PO SCH (10:14)
[2022-07-14] MEDS: SUCRALFATE 1 GM TAB PO SCH (10:14)
[2022-07-14] MEDS: metFORMIN 500 MG TAB PO SCH ×2 (10:14→20:48)
[2022-07-14] MEDS: GABAPENTIN 300 MG CAP PO SCH ×3 (10:14→20:49)
[2022-07-14] MEDS: FUROSEMIDE 40 MG TAB PO SCH (10:14)
[2022-07-14] MEDS: MELATONIN 5 MG TABLET PO SCH (20:48)
[2022-07-14] MEDS: ATORVASTATIN 10 MG TAB PO SCH (20:49)
[2022-07-14] MEDS: MIRTAZAPINE 15 MG TAB PO SCH (20:49)
[2022-07-15 04:21] VITALS: RESP 18
[2022-07-15] MEDS: PANTOPRAZOLE 40 MG TABLET PO SCH (06:17)
[2022-07-15] MEDS: LEVOTHYROXINE 25 MCG TAB PO SCH (06:17)
--- NOTE | 2022-07-15 07:15 | PN ---
PROGRESS NOTE DATE OF SERVICE: 07/13/2022 CHIEF COMPLAINT: General debility and weakness with Parkinson disease. HISTORY OF PRESENT ILLNESS: This lady is doing reasonably well. She is actually ambulating a little bit better. Tremor seems to be a little bit better. Speech is better. PHYSICAL EXAMINATION: VITAL SIGNS: Normal. CHEST: Clear. CARDIAC: Normal. NEUROLOGIC: Her tremor has slightly improved since she has been in the hospital. IMPRESSION: 1. Parkinson disease. 2. General debility and failure to thrive. PLAN: Increase activity and continue to work on a discharge plan. MMODL / IJN: [id number] /
--- NOTE | 2022-07-15 07:24 | PN ---
PROGRESS NOTE DATE OF SERVICE: 07/14/2022 CHIEF COMPLAINT: General debility and failure to thrive with Parkinson disease. HISTORY OF PRESENT ILLNESS: This lady is fairly stable and we are awaiting a discharge location and plan. She is doing well. REVIEW OF SYSTEMS: She has no complaints. PHYSICAL EXAMINATION: CHEST: Clear. CARDIAC: Normal. ABDOMEN: Soft, nontender. EXTREMITIES: Normal. Tremors improved, and her lower extremity edema is better. IMPRESSION: 1. General debility and failure to thrive. 2. Parkinson disease. PLAN: Await for discharge plan and location. MMODL / IJN: [id number] /
--- NOTE | 2022-07-15 07:29 | PN ---
PROGRESS NOTE DATE OF SERVICE: 07/12/2022 CHIEF COMPLAINT: General debility and weakness with hypomagnesemia. HISTORY OF PRESENT ILLNESS: This lady is uncomfortable, doing fairly well. She would like to have her Carafate reordered for her GERD. PHYSICAL EXAM: GENERAL: Color is good. CHEST: Clear. CARDIAC: Normal. ABDOMEN: Soft, nontender. IMPRESSION: 1. General debility and weakness. 2. Parkinson disease. 3. Gastroesophageal reflux disease. 4. Hypothyroidism. PLAN: 1. We will order her Carafate. 2. We can work on a discharge plan. MMODL / IJN: [id number] /
--- NOTE | 2022-07-15 08:00 | HP ---
HISTORY AND PHYSICAL CHIEF COMPLAINT: Generalized weakness, failure to thrive, debility, and inability to care for herself any longer secondary to Parkinson's disease. HISTORY OF PRESENT ILLNESS: This is a 71-year-old white female, who lives alone and has a great deal of difficulty with gross motor skills to the point where she cannot live alone independently any longer. REVIEW OF SYSTEMS: She has had no change in her vision or hearing. She has had no chest pain, shortness of breath, abdominal pain, vomiting, diarrhea, melena, hematochezia, jaundice, renal failure, dysuria, frequency, urgency, incontinence, etc. She does have hypothyroidism and type 2 diabetes. Past medical history, family history, personal and social histories reveal that she cannot take statins, NSAIDs, or Benadryl. MEDICATIONS: 1. Allopurinol 300 mg once a day. 2. Metformin 500 mg twice a day. 3. Omeprazole 20 mg twice a day. 4. Atorvastatin 10 mg once a day. 5. Furosemide 40 mg half a tablet a day. 6. Levothyroxine 0.025 mg a day. 7. Sucralfate 1 g 4 times a day. 8. Gabapentin 300 mg 3 times a day. Rest of her history is unremarkable and noncontributory. She does not smoke or drink. PHYSICAL EXAMINATION: VITAL SIGNS: Blood pressure 114/60 with a pulse of 80, respirations 21, and she is afebrile. GENERAL: She appeared to be slightly overweight, in no acute distress. SKIN: Color is normal. HEAD, EARS, EYES, NOSE, MOUTH AND THROAT: Normal. CHEST: Clear. CARDIAC: Normal, sinus rhythm. ABDOMEN: Soft and nontender. EXTREMITIES: Normal. NEUROLOGICAL: She had persistent tremors in the upper and lower extremities and a faltering voice. ASSESSMENT: She is admitted to the hospital with diagnosis of: 1. General debility. 2. Parkinson's disease. 3. Hypothyroidism. 4. Type 2 non-insulin dependent diabetes mellitus. PLAN: 1. Bedrest. 2. Consult for placement with Retail Department Manager. 3. Correct hypomagnesemia. MMODL / IJN: [id number] /
[2022-07-15] MEDS: ALBUTEROL HFA INHALER INHALATION PRN (08:54)
[2022-07-15] MEDS: metFORMIN 500 MG TAB PO SCH (09:18)
[2022-07-15] MEDS: FUROSEMIDE 40 MG TAB PO SCH (09:18)
[2022-07-15] MEDS: GABAPENTIN 300 MG CAP PO SCH ×2 (09:18→15:16)
[2022-07-15] MEDS: SUCRALFATE 1 GM TAB PO SCH (09:19)
[2022-07-15] MEDS: allopurinoL 300 MG TAB PO SCH (09:19)
[2022-07-15 13:47] VITALS: BP 134/91; PULSE 109; TEMP 97.9
--- NOTE | 2022-07-15 14:27 | DS ---
DISCHARGE SUMMARY CHIEF COMPLAINT: General debility and failure to thrive and living alone. HISTORY OF PRESENT ILLNESS AND PHYSICAL EXAMINATION: Details of this lady's history and physical can be found in the initial workup. LABORATORY STUDIES: While she was in the hospital, she had laboratory studies, details of which can be found in the laboratory section of her chart. COURSE IN THE HOSPITAL: After admission, she was placed on bedrest on intravenous fluids and placed back on her usual medication. Honing Machine Operator Semiautomatic got involved and was able to find a intermediate to take her, which was [facility]. She will be discharged on the . FINAL DIAGNOSES: General debility and incapacitation with inability to take care of herself and living alone secondary to Parkinson disease. OPERATIONS: None. CONSULTATIONS: None. She is improved. GISELA / CHALINO: [id number] /
--- NOTE | 2022-07-16 22:25 | DS ---
DISCHARGE SUMMARY CHIEF COMPLAINT: Parkinson disease, general debility, weakness with inability to care for herself any longer. HISTORY OF PRESENT ILLNESS: This lady has difficulty with advancing Parkinson disease. She lives alone and could no longer manage. She came to the emergency room and was admitted for placement. It was thought that she would probably wind up in the halfway. However, there was difficulty making arrangements and it was decided on the that she would go back home with help. FINAL DIAGNOSES: 1. Parkinson disease. 2. General debility and failure to thrive with inability to care for herself. OPERATIONS: None. CONSULTATIONS: None. She is improved. MMODL / IJN: [id number] /
== END 2022-07-15 18:32 | disposition home health service (06) | DRG 57 ==
LOC: EC 14:19 → 6NMEDSUR 15:51 → OBSVTOIN 07-12 09:49
PROVIDERS: ADMIT Family Medicine; ATTEND Family Medicine
DX: G20 Parkinson's disease (principal); E87.20 Acidosis, unspecified; R45.851 Suicidal ideations; R19.7 Diarrhea, unspecified; E83.42 Hypomagnesemia; E78.5 Hyperlipidemia, unspecified; F32.9 Major depressive disorder, single episode, unspecified; F41.9 Anxiety disorder, unspecified; G89.29 Other chronic pain; I10 Essential (primary) hypertension; J45.909 Unspecified asthma, uncomplicated; K21.9 Gastro-esophageal reflux disease without esophagitis; M19.90 Unspecified osteoarthritis, unspecified site; R62.7 Adult failure to thrive; E03.9 Hypothyroidism, unspecified; E11.40 Type 2 diabetes mellitus with diabetic neuropathy, unspecified; K29.70 Gastritis, unspecified, without bleeding; Z79.84 Long term (current) use of oral hypoglycemic drugs; I89.0 Lymphedema, not elsewhere classified; Z79.890 Hormone replacement therapy; Z87.891 Personal history of nicotine dependence; Z87.19 Personal history of other diseases of the digestive system; Z86.010 Personal history of colon polyps; Z82.49 Family history of ischemic heart disease and other diseases of the circulatory system; K22.70 Barrett's esophagus without dysplasia; Z91.81 History of falling; Z60.2 Problems related to living alone; Z63.5 Disruption of family by separation and divorce; Z98.84 Bariatric surgery status; Z88.6 Allergy status to analgesic agent; Z88.8 Allergy status to other drugs, medicaments and biological substances; Z87.820 Personal history of traumatic brain injury
CPT/HCPCS: 36415; 80053; 81001; 82075; 83605; 83735; 85025; 85610; 85730; 87635; 94640; 96361; 96365; 96366; 99285

== ENCOUNTER 2022-11-10 09:35 | Inpatient (IN) | payer MEDICARE, OTHER ==
[2022-11-10 10:19] LABS: Basophils % (A) 0 %; Eosinophils # (A) 0.5 k/uL (0-0.7); Eosinophils % (A) 8 %; HCT 40.7 % (34.0-46.0); HGB 13.1 gm/dL (11.4-16.0); Lymphocytes # (A) 1.6 k/uL (1.0-4.8); Lymphocytes % (A) 25 %; MCH 31.9 pg (25.0-35.0); MCHC 32.3 g/dL (31.0-37.0); Mean Platelet Volume 7.1; Monocytes # (A) 0.5 k/uL (0-1.0); Monocytes % (A) 8 %; Neutrophils # (A) 3.5 k/uL (1.3-7.7); Neutrophils % (A) 55 %; Platelet Count 253 k/uL (150-450); RBC 4.11 m/uL (3.80-5.40); RDW 13.9 % (11.5-15.5); WBC 6.2 k/uL (3.8-10.6)
--- NOTE | 2022-11-10 10:23 | XR ---
EXAMINATION TYPE: XR toes RT DATE OF EXAM: 11/10/2022 COMPARISON: None HISTORY: Infection right toes TECHNIQUE: 3 view right foot FINDINGS: Hammertoes are present. No acute fracture or dislocation is evident. Joint spaces appear pr eserved. No suspicious cortical erosion to suggest osteomyelitis is evident. Follow-up can be perform ed as clinically indicated. IMPRESSION: 1. No acute osseous abnormality right toes.
[2022-11-10 10:36] LABS: ALT 27 U/L (4-34); AST 49 U/L (14-36); African American GFR (CKD) >90 (>60 ml/min/1.73 sqM); Albumin 3.7 g/dL (3.5-5.0); Alkaline Phosphatase 82 U/L (38-126); Anion Gap 9 mmol/L; Blood Urea Nitrogen 11 mg/dL (7-17); C Reactive Protein 0.6 mg/dL (<1.0); Calcium 8.4 mg/dL (8.4-10.2); Carbon Dioxide 29 mmol/L (22-30); Chloride 98 mmol/L (98-107); Glucose 133 mg/dL (74-99); Magnesium 1.5 mg/dL (1.6-2.3); Non-African American GFR(CKD) >90 (>60 ml/min/1.73 sqM); Sodium 136 mmol/L (137-145); Total Bilirubin 0.5 mg/dL (0.2-1.3); Total Protein 6.6 g/dL (6.3-8.2)
[2022-11-10] MEDS ORDERED: SODIUM CHLORIDE 0.9% 1,000 ML IV ONE (10:55)
--- NOTE | 2022-11-10 12:00 | ED ---
General Adult HPI - General Chief complaint: Extremity Problem,Nontraumatic Stated complaint: Leg pain Time Seen by Provider: 11/10/22 09:48 Source: patient, RN notes reviewed Mode of arrival: ambulatory Limitations: no limitations - History of Present Illness Initial comments: 72-year-old female presents emergency Department chief complaint of increasing redness, swelling to her legs, right foot. Patient states that she had debridement of diabetic ulcer right foot. She states she's been taking some old antibiotics. Patient states that she's become increasing weak and feels that she needs replacement custodial. Patient states she has discussed this with her PCP in which she was advised on the wrist from it. Patient denies any chest pain shortness breath. Patient states she has pain in her legs, weakness. - Related Data Home Medications Medication Instructions Recorded Confirmed Atorvastatin [Lipitor] 10 mg PO HS 10/30/21 11/10/22 Levothyroxine Sodium [Synthroid] 25 mcg PO DAILY 10/30/21 11/10/22 metFORMIN HCL [Glucophage] 500 mg PO BID 10/30/21 11/10/22 Albuterol Inhaler [Ventolin Hfa 2 puff INHALATION RT-Q6H PRN 07/11/22 11/10/22 Inhaler] Sucralfate [Carafate] 1 gm PO DAILY 07/11/22 11/10/22 Previous Rx's Medication Instructions Recorded Furosemide [Lasix] 20 mg PO DAILY #0 11/03/21 Gabapentin [Neurontin] 300 mg PO TID #90 cap 07/15/22 Mirtazapine [Remeron] 15 mg PO HS #90 tab 07/15/22 Allergies Allergy/AdvReac Type Severity Reaction Status Date / Time aspirin Allergy Rash/Hives Verified 11/10/22 11:30 diphenhydramine Allergy Asthma Verified 11/10/22 11:30 [From Benadryl] Attack Cholestrol Med Allergy Arms Uncoded 11/10/22 11:30 cramped up Review of Systems ROS Statement: Those systems with pertinent positive or pertinent negative responses have been documented in the HPI. ROS Other: All systems not noted in ROS Statement are negative. Past Medical History Past Medical History: Asthma, Diabetes Mellitus, Hyperlipidemia, Hypertension, Osteoarthritis (OA), Pneumonia, Thyroid Disorder Additional Past Medical History / Comment(s): 10/30/21 intractable nausea and vomiting with an episode of hypotension, nausea and vomiting for 2 months, s evere gastrtis. Neuropathy bilateral feet, severe essential tremors, chronic lower extremity edema, gastric polyps, debi's esophagus, gastritis, colon polyp, occasional low back pain, hypothyroid. Hx head injury as a kid. States has to have some toes amputated after this surgery, unable to walk or be on feet for more than 5 minutes at a time. History of Any Multi-Drug Resistant Organisms: None Reported Past Surgical History: Bariatric Surgery, Tubal Ligation Additional Past Surgical History / Comment(s): 11/02/21 EGD/biopsies, colonoscopy, 2002 lap banding with reversal in 01/2022 D&C, left heel spur, sinus surgery, bilateral cataract removals. Past Anesthesia/Blood Transfusion Reactions: Motion Sickness Past Psychological History: Anxiety, Depression Smoking Status: Former smoker Past Alcohol Use History: Daily Past Drug Use History: None Reported - Past Family History Mother Family Medical History: Cancer, Hypertension Additional Family Medical History / Comment(s): Colon and lung cancer. Father Family Medical History: Cancer Additional Family Medical History / Comment(s): Multiple myeloma. Sister(s) Family Medical History: Cancer General Exam Limitations: no limitations General appearance: alert, in no apparent distress Head exam: Present: atraumatic, normocephalic, normal inspection Respiratory exam: Present: normal lung sounds bilaterally. Absent: respiratory distress, wheezes, rales, rhonchi, stridor Cardiovascular Exam: Present: normal rhythm, tachycardia, normal heart sounds. Absent: systolic murmur, diastolic murmur, rubs, gallop, clicks Extremities exam: Present: pedal edema (Bilateral with mild erythema), other (Right foot third digit there is a healing diabetic ulceration noted) Skin exam: Present: warm, dry, intact, normal color. Absent: rash Course Vital Signs 11/10/22 11/10/22 09:37 11:53 Temperature 98 F Pulse Rate 112 H 90 Respiratory 18 18 Rate Blood Pressure 168/103 134/75 O2 Sat by Pulse 95 96 Oximetry Medical Decision Making - Medical Decision Making Was pt. sent in by a medical professional or institution (, PA, CONVERTIBLE [employer]EDS[employer]ING TE[employer], urgent care, hospital, or custodial...) When possible be specific @ -PCP Did you speak to anyone other than the patient for history (EMS, parent, family, police, friend...)? What history was obtained from this source @ -No Did you review nursing and triage notes (agree or disagree)? Why? @ -I reviewed and agree with nursing and triage notes Were old charts reviewed (outside hosp., previous admission, EMS record, old EKG, old radiological studies, urgent care reports/EKG's, custodial records)? Report findings @ -No old charts were reviewed Differential Diagnosis (chest pain, altered mental status, abdominal pain women, abdominal pain men, vaginal bleeding, weakness, fever, dyspnea, syncope, headache, dizziness, GI bleed, back pain, seizure, CVA, palpatations, mental health, musculoskeletal)? @ -Differential Weakness: Hypoglycemia, shock, sepsis, hyponatremia, anemia, infection, OK, ETOH, adverse medicine reaction, overdose, stroke, this is not meant to be an all-inclusive list.e EKG interpreted by me (3pts min.). @ -None X-rays interpreted by me (1pt min.). @ -None done CT interpreted by me (1pt min.). @ -None done U/S interpreted by me (1pt. min.). @ -None done What testing was considered but not performed or refused? (CT, X-rays, U/S, labs)? Why? @ -None What meds were considered but not given or refused? Why? @ -None Did you discuss the management of the patient with other professionals (professionals i.e. , PA, CONVERTIBLE [employer]EDS[employer]ING TESTER, lab, RT, psych nurse, social sciences instructor, attending psychiatrist, teacher, pharmaceutical officer, family service caseworker)? Give summary @ - sheet for admission with placement to custodial Was smoking cessation discussed for >3mins.? @ -No Was critical care preformed (if so, how long)? @ -No Were there social determinants of health that impacted care today? How? (Homelessness, low income, unemployed, alcoholism, drug addiction, transportation, low edu. Level, literacy, decrease access to med. care, halfway, rehab)? @ -No Was there de-escalation of care discussed even if they declined (Discuss DNR or withdrawal of care, Hospice)? DNR status @ -No What co-morbidities impacted this encounter? (DM, HTN, Smoking, COPD, CAD, Cancer, CVA, ARF, Chemo, Hep., AIDS, mental health diagnosis, sleep apnea, morbid obesity)? @ -Diabetes Was patient admitted / discharged? Hospital course, mention meds given and route, prescriptions, significant lab abnormalities, going to OR and other pertinent info. @ -Admitted patient does have some mild cellulitis, diabetic ulceration, I have care for herself. She does have significant lactic acidosis. Patient given fluid bolus, antibiotics. Patiently admitted for placement. Undiagnosed new problem with uncertain prognosis? @ -No Drug Therapy requiring intensive monitoring for toxicity (Heparin, Nitro, Insulin, Cardizem)? @ -No Were any procedures done? @ -No Diagnosis/symptom? @ -Weakness, diabetic ulceration Acute, or Chronic, or Acute on Chronic? @ -Acute Uncomplicated (without systemic symptoms) or Complicated (systemic symptoms)? @ -Complicated Side effects of treatment? @ -No Exacerbation, Progression, or Severe Exacerbation? @ -No Poses a threat to life or bodily function? How? (Chest pain, USA, OK, pneumonia, PE, COPD, DKA, ARF, appy, cholecystitis, CVA, Diverticulitis, Homicidal, Suicidal, threat to staff... and all critical care pts) @ -No - Lab Data Result diagrams: 11/10/22 10:02 11/10/22 10:02 Lab Results 11/10/22 11/10/22 11/10/22 Range/Units 10:02 10:02 10:02 WBC 6.2 (3.8-10.6) k/uL RBC 4.11 (3.80-5.40) m/uL Hgb 13.1 (11.4-16.0) gm/dL Hct 40.7 (34.0-46.0) % MCV 99.0 (80.0-100.0) fL MCH 31.9 (25.0-35.0) pg MCHC 32.3 (31.0-37.0) g/dL RDW 13.9 (11.5-15.5) % Plt Count 253 (150-450) k/uL MPV 7.1 Neutrophils % 55 % Lymphocytes % 25 % Monocytes % 8 % Eosinophils % 8 % Basophils % 0 % Neutrophils # 3.5 (1.3-7.7) k/uL Lymphocytes # 1.6 (1.0-4.8) k/uL Monocytes # 0.5 (0-1.0) k/uL Eosinophils # 0.5 (0-0.7) k/uL Basophils # 0.0 (0-0.2) k/uL Sodium 136 L (137-145) mmol/L Potassium 4.0 (3.5-5.1) mmol/L Chloride 98 (98-107) mmol/L Carbon Dioxide 29 (22-30) mmol/L Anion Gap 9 mmol/L BUN 11 (7-17) mg/dL Creatinine 0.54 (0.52-1.04) mg/dL Est GFR (CKD-EPI)AfAm >90 (>60 ml/min/1.73 sqM) Est GFR (CKD-EPI)NonAf >90 (>60 ml/min/1.73 sqM) Glucose 133 H (74-99) mg/dL Lactic Ac Sepsis Rflx Plasma Lactic Acid Dario 3.4 H* (0.7-2.0) mmol/L Calcium 8.4 (8.4-10.2) mg/dL Magnesium 1.5 L (1.6-2.3) mg/dL Total Bilirubin 0.5 (0.2-1.3) mg/dL AST 49 H (14-36) U/L ALT 27 (4-34) U/L Alkaline Phosphatase 82 (38-126) U/L C-Reactive Protein 0.6 (<1.0) mg/dL Total Protein 6.6 (6.3-8.2) g/dL Albumin 3.7 (3.5-5.0) g/dL 11/10/22 Range/Units 10:55 WBC (3.8-10.6) k/uL RBC (3.80-5.40) m/uL Hgb (11.4-16.0) gm/dL Hct (34.0-46.0) % MCV (80.0-100.0) fL MCH (25.0-35.0) pg MCHC (31.0-37.0) g/dL RDW (11.5-15.5) % Plt Count (150-450) k/uL MPV Neutrophils % % Lymphocytes % % Monocytes % % Eosinophils % % Basophils % % Neutrophils # (1.3-7.7) k/uL Lymphocytes # (1.0-4.8) k/uL Monocytes # (0-1.0) k/uL Eosinophils # (0-0.7) k/uL Basophils # (0-0.2) k/uL Sodium (137-145) mmol/L Potassium (3.5-5.1) mmol/L Chloride (98-107) mmol/L Carbon Dioxide (22-30) mmol/L Anion Gap mmol/L BUN (7-17) mg/dL Creatinine (0.52-1.04) mg/dL Est GFR (CKD-EPI)AfAm (>60 ml/min/1.73 sqM) Est GFR (CKD-EPI)NonAf (>60 ml/min/1.73 sqM) Glucose (74-99) mg/dL Lactic Ac Sepsis Rflx Y Plasma Lactic Acid Dario (0.7-2.0) mmol/L Calcium (8.4-10.2) mg/dL Magnesium (1.6-2.3) mg/dL Total Bilirubin (0.2-1.3) mg/dL AST (14-36) U/L ALT (4-34) U/L Alkaline Phosphatase (38-126) U/L C-Reactive Protein (<1.0) mg/dL Total Protein (6.3-8.2) g/dL Albumin (3.5-5.0) g/dL Disposition Clinical Impression: Lactic acidosis, Hypomagnesemia, Cellulitis, Diabetic ulcer of toe Disposition: ADMITTED IP TO THIS [facility] Condition: Fair Time of Disposition: 12:38
[2022-11-10] MEDS ORDERED: MAGNESIUM OXIDE 400 MG TAB PO STA (12:31)
[2022-11-10] MEDS ORDERED: AMPICILLIN-SULBACTAM 3 GM in SODIUM CHLORIDE 0.9% 100 ML IVPB STA (12:31)
[2022-11-10] MEDS ORDERED: VANCOMYCIN IV PER PHARMACY 1 EACH MISC MISCELLANE PRN (12:32)
[2022-11-10] MEDS ORDERED: NALOXONE 0.4 MG/ML 1 ML VIAL IV PRN (12:38)
[2022-11-10] MEDS ORDERED: VANCOMYCIN 1,750 MG in SODIUM CHLORIDE 0.9% 500 ML 500 ML IVPB STA (12:44)
[2022-11-10] MEDS: SODIUM CHLORIDE 0.9% 1,000 ML IV SCH ×2 (13:23→22:18)
[2022-11-10] MEDS ORDERED: ALBUTEROL NEBULIZED 2.5 MG/3 ML INHALATION PRN (14:44)
[2022-11-10] MEDS ORDERED: LORazepam 1 MG TAB PO PRN ×3 (14:45)
[2022-11-10] MEDS ORDERED: LORazepam 0.5 MG TAB PO PRN (14:45)
[2022-11-10] MEDS: GABAPENTIN 300 MG CAP PO SCH ×2 (16:22→22:18)
[2022-11-10] MEDS ORDERED: Magnesium Replacement Protocol 1 EACH MISC MISCELLANE PRN (16:32)
--- NOTE | 2022-11-10 16:32 | P.HPIM ---
History of Present Illness This is a pleasant 72 years old female with multiple medical problems including type 2 diabetes mellitus, GERD, hypothyroidism, hyperlipidemia, depression Patient's also is wheelchair bound and bedbound for more than a year. She's been complaining of from bilateral leg pain for more than a year but it is slowly and gradually progressive, patient could not clarify the reason why she came to the hospital other than gradually worsened of both legs pain. Also patient has been complaining of from diarrhea for about one year Both legs look warm and tender and swollen, with there is mild scaling. No open wounds. She denies chest pain or dyspnea or coughing. No change in urine or bowel habits. No headache dizziness weakness or numbness. She denies smoking or illicit tracts but she drinks 2 glasses of wine every night. Review of Systems Review of systems CONSTITUTIONAL: No fever, no malaise, no fatigue. HEENT: No recent visual problems or hearing problems. Denied any sore throat. CARDIOVASCULAR: No orthopnea, PND, no palpitations, no syncope. PULMONARY: No shortness of breath, no cough, no hemoptysis. GASTROINTESTINAL: No diarrhea, no nausea, no vomiting, no abdominal pain. Normoactive bowel sounds. NEUROLOGICAL: No headaches, no weakness, no numbness. HEMATOLOGICAL: Denies any bleeding or petechiae. GENITOURINARY: Denies any burning micturition, frequency, or urgency. MUSCULOSKELETAL/RHEUMATOLOGICAL: Denies any joint pain, swelling, or any muscle pain. ENDOCRINE: Denies any polyuria or polydipsia. Past Medical History Past Medical History: Asthma, Diabetes Mellitus, Hyperlipidemia, Hypertension, Osteoarthritis (OA), Pneumonia, Thyroid Disorder Additional Past Medical History / Comment(s): 10/30/21 intractable nausea and vomiting with an episode of hypotension, nausea and vomiting for 2 months, severe gastrtis. Neuropathy bilateral feet, severe essential tremors, chronic lower extremity edema, gastric polyps, debi's esophagus, gastritis, colon polyp, occasional low back pain, hypothyroid. Hx head injury as a kid. States has to have some toes amputated after this surgery, unable to walk or be on feet for more than 5 minutes at a time. History of Any Multi-Drug Resistant Organisms: None Reported Past Surgical History: Bariatric Surgery, Tubal Ligation Additional Past Surgical History / Comment(s): 11/02/21 EGD/biopsies, colonoscopy, 2002 lap banding with reversal in 01/2022 D&C, left heel spur, sinus surgery, bilateral cataract removals. Past Anesthesia/Blood Transfusion Reactions: Motion Sickness Past Psychological History: Anxiety, Depression Smoking Status: Former smoker Past Alcohol Use History: Daily Past Drug Use History: None Reported - Past Family History Mother Family Medical History: Cancer, Hypertension Additional Family Medical History / Comment(s): Colon and lung cancer. Father Family Medical History: Cancer Additional Family Medical History / Comment(s): Multiple myeloma. Sister(s) Family Medical History: Cancer Medications and Allergies Home Medications Medication Instructions Recorded Confirmed Type Atorvastatin [Lipitor] 10 mg PO HS 10/30/21 11/10/22 History Levothyroxine Sodium [Synthroid] 25 mcg PO DAILY 10/30/21 11/10/22 History metFORMIN HCL [Glucophage] 500 mg PO BID 10/30/21 11/10/22 History Furosemide [Lasix] 20 mg PO DAILY #0 11/03/21 11/10/22 Rx Albuterol Inhaler [Ventolin Hfa 2 puff INHALATION RT-Q6H PRN 07/11/22 11/10/22 History Inhaler] Sucralfate [Carafate] 1 gm PO DAILY 07/11/22 11/10/22 History Gabapentin [Neurontin] 300 mg PO TID #90 cap 07/15/22 11/10/22 Rx Mirtazapine [Remeron] 15 mg PO HS #90 tab 07/15/22 11/10/22 Rx Allergies Allergy/AdvReac Type Severity Reaction Status Date / Time aspirin Allergy Rash/Hives Verified 11/10/22 11:30 diphenhydramine Allergy Asthma Verified 11/10/22 11:30 [From Benadryl] Attack Cholestrol Med Allergy Arms Uncoded 11/10/22 11:30 cramped up Physical Exam Vitals: Vital Signs Temp Pulse Pulse Resp BP BP Pulse Ox 11/10/22 14:20 98.2 F 83 18 137/78 95 11/10/22 11:53 90 18 134/75 96 11/10/22 09:37 98 F 112 H 18 168/103 95 Intake and Output 11/09/22 11/10/22 11/10/22 22:59 06:59 14:59 Other: Weight 102.512 kg GENERAL: The patient is alert and oriented x3, not in any acute distress. Well developed, well nourished. HEENT: Pupils are round and equally reacting to light. EOMI. No scleral icterus. No conjunctival pallor. Normocephalic, atraumatic. No pharyngeal erythema. No thyromegaly. CARDIOVASCULAR: S1 and S2 present. No murmurs, rubs, or gallops. PULMONARY: Chest is clear to auscultation, no wheezing or crackles. ABDOMEN: Soft, nontender, nondistended, normoactive bowel sounds. No palpable organomegaly. MUSCULOSKELETAL: No joint swelling or deformity. -EXTREMITIES: No cyanosis, clubbing, or pedal edema. Circumscribed areas of re dness and tenderness and swelling in both tibia shafts anteriorly NEUROLOGICAL: Gross neurological examination did not reveal any focal deficits. SKIN: No rashes. no petechiae. Results CBC & Chem 7: 11/10/22 10:02 11/10/22 10:02 Labs: Abnormal Lab Results - Last 24 Hours (Table) 11/10/22 11/10/22 11/10/22 Range/Units 10:02 10:02 13:15 Sodium 136 L (137-145) mmol/L Glucose 133 H (74-99) mg/dL Plasma Lactic Acid Dario 3.4 H* 3.0 H* (0.7-2.0) mmol/L Magnesium 1.5 L (1.6-2.3) mg/dL AST 49 H (14-36) U/L Assessment and Plan Assessment: Bilateral lower extremity redness and swelling suspicious for erythema nodosum, differential diagnoses cellulitis Diabetes mellitus Hyperlipidemia lipidemia Hypothyroidism History of GERD History of depression Plan: Continue with antibiotic Follow-up infectious disease consult Check pro-calcitonin Check venous ultrasound of the lower extremity to rule out DVT Also we will do workup for erythema nodosum (ideally may benefit from skin biopsy however there is no dermatology service in this facility) including chest x-ray to rule out sarcoidosis, or Tubercolsis , stool studies given her symptoms of diarrhea, we will send for stool culture. Also other possible etiologies including streptococcal infection and therefore we are going to check ASO titer and throat swab Labs and medication were reviewed.. Continue same treatment. Continue with symptomatic treatment. Resume home medication. Monitor labs and vitals. DVT and GI prophylaxis. Further recommendations as per clinical course of the patient DVT prophylaxis: Subcutaneous heparin GI Prophylaxis: Pepcid Prognosis is guarded
[2022-11-10 17:21] LABS: Glucose,Whole Blood 123 mg/dL (70-110)
--- NOTE | 2022-11-10 19:55 | XR ---
EXAMINATION: XR chest 2V: 11/10/2022 5:11 PM CLINICAL INDICATION: rule out sarcoidosis, hilar LAP, or TB TECHNIQUE: Departmental protocol COMPARISON: 11/10/2021 FINDINGS: The lungs are clear. The pleural spaces are negative. The cardiac silhouette is not enlarged. The thoracic aorta appears ectatic, which can be further asse ssed using contrast CT Chest. This aortic finding mitigates the radiographic detection of hilar/media stinal adenopathy. The skeletal structures and soft tissues are negative for acute findings. IMPRESSION: 1. No acute radiographic process. 2. Ectatic aorta.
--- NOTE | 2022-11-10 20:04 | US ---
EXAMINATION TYPE: US venous doppler duplex LE DATE OF EXAM: 11/10/2022 6:49 PM COMPARISON: NONE CLINICAL HISTORY: R/O DVT. Swelling in bilateral calves. No hx of DVT. Not on blood thinners SIDE PERFORMED: Bilateral TECHNIQUE: The lower extremity deep venous system is examined utilizing real time linear array sonog john with graded compression, doppler sonography and color-flow sonography. VESSELS IMAGED: Common Femoral Vein Deep Femoral Vein Greater Saphenous Vein * Femoral Vein Popliteal Vein Small Saphenous Vein * Proximal Calf Veins (* superficial vessels) DESCRIPTION: Grayscale, color doppler, spectral doppler imaging performed of the deep veins of the lower extremiti es. There is normal flow, compressibility, vascular waveforms, as seen. IMPRESSION: Right lower extremity: Negative for DVT as seen, although distal fem vein and calf veins limited. Left lower extremity: Negative for DVT as seen, although distal femoral vein and calf veins limited.
[2022-11-10 20:15] LABS: Glucose,Whole Blood 142 mg/dL (70-110)
[2022-11-10] MEDS: metFORMIN 500 MG TAB PO SCH (22:18)
[2022-11-10] MEDS: ATORVASTATIN 10 MG TAB PO SCH (22:18)
[2022-11-10] MEDS: MIRTAZAPINE 15 MG TAB PO SCH (23:04)
[2022-11-11] MEDS ORDERED: VANCOMYCIN 1,750 MG in SODIUM CHLORIDE 0.9% 500 ML 500 ML IVPB SCH (01:00)
[2022-11-11] MEDS: LEVOTHYROXINE 25 MCG TAB PO SCH (06:28)
[2022-11-11] MEDS: SODIUM CHLORIDE 0.9% 1,000 ML IV SCH ×2 (06:29→20:46)
[2022-11-11 07:02] LABS: Glucose,Whole Blood 106 mg/dL (70-110)
--- NOTE | 2022-11-11 09:01 | P.CONS ---
History of Present Illness - Reason for Consult Consult date: 11/10/22 Cellulitis Requesting physician: Ayden Dinero - Chief Complaint Increasing swelling redness to the right leg x days - History of Present Illness Patient is a 72 year old female with a past medical history significant for diabetes mellitus hypertension hyperlipidemia also arthritis asthma, patient did have right second toe callus that has been debrided by her p odiatrist a few weeks ago, patient is presenting to the hospital considered for increasing swelling redness and discomfort to the right leg and right foot area symptom has been getting worse for the last few days patient denies having any open wound or any drainage, the patient describing pain to be mostly dull aching, especially when she stands on it and less pain at rest no radiation, with a syncopal patient has been evaluated on arrival to the area, the patient was afebrile the patient did have a normal white count sed rate was normal, the patient did have elevated lactic acid of 3.2, kidney function was normal AST was mildly elevated ALT was normal CRP of 0.6, patient did have a toe x-ray we did shows hammertoes are present no acute bony abnormality right toes, patient was given Unasyn and vancomycin has been admitted to the hospital infectious disease was consulted for further management of antibiotic therapy Review of Systems Positive point has been mentioned in the HPI rest of the systems are negative Past Medical History Past Medical History: Asthma, Diabetes Mellitus, Hyperlipidemia, Hypertension, Osteoarthritis (OA), Pneumonia, Thyroid Disorder Additional Past Medical History / Comment(s): 10/30/21 intractable nausea and vomiting with an episode of hypotension, nausea and vomiting for 2 months, severe gastrtis. Neuropathy bilateral feet, severe essential tremors, chronic lo wer extremity edema, gastric polyps, debi's esophagus, gastritis, colon polyp, occasional low back pain, hypothyroid. Hx head injury as a kid. States has to have some toes amputated after this surgery, unable to walk or be on feet for more than 5 minutes at a time. History of Any Multi-Drug Resistant Organisms: None Reported Past Surgical History: Bariatric Surgery, Tubal Ligation Additional Past Surgical History / Comment(s): 11/02/21 EGD/biopsies, colonoscopy, 2002 lap banding with reversal in 01/2022 D&C, left heel spur, sinus surgery, bilateral cataract removals. Past Anesthesia/Blood Transfusion Reactions: Motion Sickness Past Psychological History: Anxiety, Depression Smoking Status: Former smoker Past Alcohol Use History: Daily Past Drug Use History: None Reported - Past Family History Mother Family Medical History: Cancer, Hypertension Additional Family Medical History / Comment(s): Colon and lung cancer. Father Family Medical History: Cancer Additional Family Medical History / Comment(s): Multiple myeloma. Sister(s) Family Medical History: Cancer Medications and Allergies Home Medications Medication Instructions Recorded Confirmed Type Atorvastatin [Lipitor] 10 mg PO HS 10/30/21 11/10/22 History Levothyroxine Sodium [Synthroid] 25 mcg PO DAILY 10/30/21 11/10/22 History metFORMIN HCL [Glucophage] 500 mg PO BID 10/30/21 11/10/22 History Furosemide [Lasix] 20 mg PO DAILY #0 11/03/21 11/10/22 Rx Albuterol Inhaler [Ventolin Hfa 2 puff INHALATION RT-Q6H PRN 07/11/22 11/10/22 History Inhaler] Sucralfate [Carafate] 1 gm PO DAILY 07/11/22 11/10/22 History Gabapentin [Neurontin] 300 mg PO TID #90 cap 07/15/22 11/10/22 Rx Mirtazapine [Remeron] 15 mg PO HS #90 tab 07/15/22 11/10/22 Rx Allergies Allergy/AdvReac Type Severity Reaction Status Date / Time aspirin Allergy Rash/Hives Verified 11/10/22 11:30 diphenhydramine Allergy Asthma Verified 11/10/22 11:30 [From Benadryl] Attack Cholestrol Med Allergy Arms Uncoded 11/10/22 11:30 cramped up Physical Exam Vitals: Vital Signs Temp Pulse Resp BP Pulse Ox 11/10/22 11:53 90 18 134/75 96 11/10/22 09:37 98 F 112 H 18 168/103 95 Intake and Output 11/09/22 11/10/22 11/10/22 22:59 06:59 14:59 Other: Weight 102.512 kg GENERAL DESCRIPTION: Elderly female lying in bed, no distress. No tachypnea or accessory muscle of respiration use. HEENT: Shows Pallor , no scleral icterus. Oral mucous membrane is dry. No pharyngeal erythema or thrush NECK: Trachea central, no thyromegaly. LUNGS: Unlabored breathing. Coarse sounds bilaterally HEART: S1, S2, regular rate and rhythm. No loud murmur ABDOMEN: Soft, no tenderness , guarding or rigidity, no organomegaly EXTREMITIES: Bilaterally extremity swelling more redness to the right leg patient did have a right second toe wound which is currently tried covered with a callus no drainage SKIN: No rash, no masses palpable. NEUROLOGICAL: The patient is awake, alert, oriented x3, mood and affect normal. Results CBC & Chem 7: 11/11/22 05:28 11/15/22 12:22 Labs: Abnormal Lab Results - Last 24 Hours (Table) 11/10/22 11/10/22 Range/Units 10:02 10:02 Sodium 136 L (137-145) mmol/L Glucose 133 H (74-99) mg/dL Plasma Lactic Acid Dario 3.4 H* (0.7-2.0) mmol/L Magnesium 1.5 L (1.6-2.3) mg/dL AST 49 H (14-36) U/L Assessment and Plan (1) Cellulitis Current Visit: Yes Status: Acute Code(s): L03.90 - CELLULITIS, UNSPECIFIED SNOMED Code(s): 516538350 Plan: 1patient presented to hospital with increasing swelling redness to the right lower extremity along with pain in this patient who did have hammertoe deformity and did have deployment of the callus on the right second toe by her chemical process operator a few weeks ago patient currently did not have any open wound to the right second toe and x-ray did not show any bony changes if she did not have any fever or elevated white count right lower extremity with mild redness and mild cellulitis not entirely excluded, likely from gram-positive skin tate clinically doubt MRSA 2patient be treated with Unasyn 3 g every 6 hours, no need for vancomycin 3mark the area of the redness We will follow on clinical condition and cultures to further adjust medication if needed Thank you for this consultation will follow this patient with you Time with Patient: Greater than 30
[2022-11-11] MEDS: FUROSEMIDE 20 MG TAB PO SCH (09:57)
[2022-11-11] MEDS: GABAPENTIN 300 MG CAP PO SCH ×3 (09:57→23:16)
[2022-11-11] MEDS: SUCRALFATE 1 GM TAB PO SCH (09:57)
[2022-11-11] MEDS: metFORMIN 500 MG TAB PO SCH ×2 (09:57→20:46)
[2022-11-11] MEDS: THIAMINE 100 MG TAB PO SCH (09:58)
[2022-11-11 10:59] LABS: Basophils # (A) 0.06 X 10*3/uL (0.00-0.10); Basophils % (A) 0.9 %; Eosinophils # (A) 0.65 X 10*3/uL (0.04-0.35); Eosinophils % (A) 10.2 %; HCT 35.4 % (37.2-46.3); HGB 11.2 g/dL (12.0-15.0); Immature Grans, Automated 0.5 %; Lymphocytes # (A) 1.75 X 10*3/uL (0.90-5.00); Lymphocytes % (A) 27.4 %; MCH 32.3 pg (27.0-32.0); MCHC 31.6 g/dL (32.0-37.0); Mean Platelet Volume 9.6 fL (9.5-12.2); Monocytes # (A) 0.88 X 10*3/uL (0.20-1.00); Monocytes % (A) 13.8 %; NRBC Per 100 WBC 0 /100 WBCS (0.0-0.0); Neutrophils # (A) 3.02 X 10*3/uL (1.80-7.70); Neutrophils % (A) 47.2 %; Platelet Count 212 X 10*3/uL (140-440); RBC 3.47 X 10*6/uL (4.10-5.20); RDW 14.7 % (11.5-14.5); WBC 6.39 X 10*3/uL (4.50-10.00)
[2022-11-11 11:10] LABS: Glucose,Whole Blood 134 mg/dL (70-110)
[2022-11-11] MEDS ORDERED: methylPREDNISolone SOD SUCCI 125 MG/2 ML VIAL IV SCH (11:10)
[2022-11-11] MEDS ORDERED: IPRATROPIUM-ALBUTEROL 3 ML NEB INHALATION PRN (11:11)
[2022-11-11 11:12] LABS: African American GFR (CKD) 98.9 (60.0-200.0); Anion Gap 9.4 mmol/L (10.00-18.00); BUN/Creat Ratio 13.29 Ratio (12.00-20.00); Blood Urea Nitrogen 9.3 mg/dL (9.0-27.0); Carbon Dioxide 27.6 mmol/L (20.0-27.5); Magnesium 1.8 mg/dL (1.5-2.4); Non-African American GFR(CKD) 85.4 (60.0-200.0); Potassium 3.8 mmol/L (3.5-5.5)
[2022-11-11] MEDS ORDERED: DEXTROSE 50% SYRINGE 50 ML IVP PRN ×2 (11:12)
--- NOTE | 2022-11-11 11:26 | P.PN ---
Subjective Progress Note Date: 11/11/22 Principal diagnosis: right leg cellulitis Patient is a 72 year old female with a past medical history significant for diabetes mellitus hypertension hyperlipidemia also arthritis asthma, patient did have right second toe callus that has been debrided by her neuroscientist a few weeks ago, patient presented to hospital with right lower extremity swelling redness concerning for possible cellulitis along with weakness. On today's evaluation that is 11/11/2022, the patient denies having any fever or any chills" extremity swelling redness and pain has slightly decreased currently with no open wound or any drainage no chest pain or shortness of his been complaining of some wheezing and need for a breathing treatment and no abdominal pain no diarrhea Objective - Vital Signs Vital signs: Vital Signs Temp 97.9 F 11/11/22 07:04 Pulse 82 11/11/22 07:04 Resp 18 11/11/22 07:04 BP 133/79 11/11/22 07:04 Pulse Ox 98 11/11/22 07:04 FiO2 Intake & Output 11/10/22 11/11/22 11/11/22 18:59 06:59 18:59 Intake Total 1300 Balance 1300 Weight 102.512 kg Intake: Intake, IV Titration 1000 Amount Sodium Chloride 0.9% 1, 500 000 ml @ 75 mls/hr IV . [id number] [facility] Rx#:[id number] Vancomycin 1,750 mg In 500 Sodium Chloride 0.9% 500 ml 500 ml @ 167 mls/hr IVPB Q12H [facility] Rx#: [id number] Oral 300 Other: Voiding Method Diaper External Catheter # Bowel Movements 1 - Exam GENERAL DESCRIPTION: An elderly female lying in bed in no distress RESPIRATORY SYSTEM: Unlabored breathing , decreased breath sounds at bases HEART: S1 S2 regular rate and rhythm , ABDOMEN: Soft , no tenderness EXTREMITIES: Right second toe wound is currently healed right leg with some swelling minimal redness no drainage - Labs CBC & Chem 7: 11/11/22 05:28 11/11/22 05:28 Labs: Abnormal Lab Results - Last 24 Hours (Table) 11/10/22 11/10/22 11/10/22 Range/Units 10:02 10:02 13:15 Sodium 136 L (137-145) mmol/L Glucose 133 H (74-99) mg/dL POC Glucose (mg/dL) (70-110) mg/dL Plasma Lactic Acid Dario 3.4 H* 3.0 H* (0.7-2.0) mmol/L Magnesium 1.5 L (1.6-2.3) mg/dL AST 49 H (14-36) U/L 11/10/22 11/10/22 11/10/22 Range/Units 17:20 18:32 20:14 Sodium (137-145) mmol/L Glucose (74-99) mg/dL POC Glucose (mg/dL) 123 H 142 H (70-110) mg/dL Plasma Lactic Acid Dario 3.2 H* (0.7-2.0) mmol/L Magnesium (1.6-2.3) mg/dL AST (14-36) U/L Assessment and Plan (1) Cellulitis Current Visit: Yes Status: Acute Code(s): L03.90 - CELLULITIS, UNSPECIFIED SNOMED Code(s): 971299680 Plan: 1patient presented to hospital with increasing swelling redness to the right lower extremity along with pain in this patient who did have hammertoe deformity and did have deployment of the callus on the right second toe by her neuroscientist a few weeks ago patient currently did not have any open wound to the right second toe and x-ray did not show any bony changes if she did not have any fever or elevated white count right lower extremity with mild redness and mild cellulitis not entirely excluded, likely from gram-positive skin tate clinically doubt MRSA 2patient to continue with Unasyn 3 g every 6 hours and monitor clinical course closely Time with Patient: Less than 30
[2022-11-11] MEDS: AMPICILLIN-SULBACTAM 3 GM in SODIUM CHLORIDE 0.9% 100 ML IVPB SCH ×3 (11:29→20:46)
[2022-11-11] MEDS: methylPREDNISolone SOD SUCCI 125 MG/2 ML VIAL IV SCH ×3 (12:38→23:16)
[2022-11-11] MEDS: INSULIN ASPART (NovoLOG) 100 UNIT/ML VIAL SQ SCH ×3 (12:42→20:47)
--- NOTE | 2022-11-11 14:04 | CT ---
EXAMINATION TYPE: CT angio chest DATE OF EXAM: 11/11/2022 COMPARISON: Chest x-ray from yesterday HISTORY: Wide mediastinum. Abnormal x-ray. Shortness of breath. CT DLP: 446.10 mGycm. Automated Exposure Control for Dose Reduction was Utilized. CONTRAST: CTA scan of the thorax is performed without and with IV Contrast, patient injected with 100 ml mL of Isovue 300, pulmonary embolism protocol. MIP Images are created on CT scanner and reviewed. FINDINGS: LUNGS: There is [id number] diffuse peripheral reticulation bilaterally seen involving upper and lower lungs. No pleural effusion or pneumothorax is seen. No focal consolidation. No concerning pulm onary masses. No honeycombing or bronchiectasis. MEDIASTINUM: There is suboptimal study without convincing CT evidence for significant central pulmona ry embolism. Most dense contrast is in the SVC. There is some enhancement of the thoracic aorta witho ut aneurysm or dissection. Prominent pulmonary arteries including main pulmonary artery of 3.0 cm axi al image 51 is suggestive of underlying pulmonary artery hypertension. There are no greater than 1 cm hilar or mediastinal lymph nodes. No cardiomegaly or pericardial effusion is seen. Calcification a t the level of the aortic valve. OTHER: Surgical sutures surrounding the proximal stomach just below diaphragm. Visualized liver is ma rkedly hypodense consistent with diffuse fatty infiltration. IMPRESSION: Suboptimal study without central acute pulmonary embolism. Mild to moderate bilateral par enchymal peripheral fibrosis versus edema. Correlation with old outside CT would be beneficial. CT fi ndings not consistent with sarcoidosis. No central parenchymal fibrotic changes and/or thoracic adeno ashok seen. No suspicious focal consolidation.
[2022-11-11 17:04] LABS: Glucose,Whole Blood 167 mg/dL (70-110)
--- NOTE | 2022-11-11 18:55 | P.PN ---
Subjective This is a pleasant 72 years old female with multiple medical problems including type 2 diabetes mellitus, GERD, hypothyroidism, hyperlipidemia, depression Patient's also is wheelchair bound and bedbound for more than a year. She's been complaining of from bilateral leg pain for more than a year but it is slowly and gradually progressive, patient could not clarify the reason why she came to the hospital other than gradually worsened of both legs pain. Also patient has been complaining of from diarrhea for about one year Both legs look warm and tender and swollen, with there is mild scaling. No open wounds. She denies chest pain or dyspnea or coughing. No change in urine or bowel habits. No headache dizziness weakness or numbness. She denies smoking or illicit tracts but she drinks 2 glasses of wine every night. 11/11/2022 pt b/e leg cellulitis is significantly nicky after she received antibiotic therapy ,currently on unasyn , id team on the case, we will continue with the same treatment. other work up for possible erythema nodosum is negative, including cta of the chest ( recommended by radiologist for wide mediastimun on cxr) and result showing no pe, no aortic dissection , but possible mild fibrotic chages or edema, please refer to the [facility] report pt wheezing is worse today, she has history of asthma but has no current pets, she has history of asthma since childhood, start symboort and solumedrola risk of contrast and explained for the pt in detail and she verbalized understanding to the ct angio Objective - Vital Signs Vital signs: Vital Signs Temp 97.9 F 11/11/22 07:04 Pulse 82 11/11/22 07:04 Resp 18 11/11/22 07:04 BP 133/79 11/11/22 07:04 Pulse Ox 98 11/11/22 07:04 FiO2 Intake & Output 11/10/22 11/11/22 11/11/22 18:59 06:59 18:59 Intake Total 1300 Balance 1300 Weight 102.512 kg Intake: Intake, IV Titration 1000 Amount Sodium Chloride 0.9% 1, 500 000 ml @ 75 mls/hr IV . [id number] [facility] Rx#:[id number] Vancomycin 1,750 mg In 500 Sodium Chloride 0.9% 500 ml 500 ml @ 167 mls/hr IVPB Q12H [facility] Rx#: [id number] Oral 300 Other: Voiding Method Diaper External Catheter # Bowel Movements 1 - Exam GENERAL: The patient is alert and oriented x3, not in any acute distress. Well developed, well nourished. HEENT: Pupils are round and equally reacting to light. EOMI. No scleral icterus. No conjunctival pallor. Normocephalic, atraumatic. No pharyngeal erythema. No thyromegaly. CARDIOVASCULAR: S1 and S2 present. No murmurs, rubs, or gallops. -PULMONARY: Chest is clear to auscultation, b/l experatory wheezing ABDOMEN: Soft, nontender, nondistended, normoactive bowel sounds. No palpable organomegaly. MUSCULOSKELETAL: No joint swelling or deformity. -EXTREMITIES: No cyanosis, clubbing, or pedal edema. Circumscribed areas of redness and tenderness and swelling in both tibia shafts anteriorly, significantly improved NEUROLOGICAL: Gross neurological examination did not reveal any focal deficits. SKIN: No rashes. no petechiae. - Labs CBC & Chem 7: 11/11/22 05:28 11/11/22 05:28 Labs: Abnormal Lab Results - Last 24 Hours (Table) 11/10/22 11/10/22 11/10/22 Range/Units 13:15 17:20 18:32 RBC (4.10-5.20) X 10*6/uL Hgb (12.0-15.0) g/dL Hct (37.2-46.3) % MCV (80.0-97.0) fL MCH (27.0-32.0) pg MCHC (32.0-37.0) g/dL RDW (11.5-14.5) % Eosinophils # (0.04-0.35) X 10*3/uL Carbon Dioxide (20.0-27.5) mmol/L Anion Gap (10.00-18.00) mmol/L POC Glucose (mg/dL) 123 H (70-110) mg/dL Plasma Lactic Acid Dario 3.0 H* 3.2 H* (0.7-2.0) mmol/L Calcium (8.7-10.3) mg/dL 11/10/22 11/11/22 11/11/22 Range/Units 20:14 05:28 05:28 RBC 3.47 L (4.10-5.20) X 10*6/uL Hgb 11.2 L (12.0-15.0) g/dL Hct 35.4 L (37.2-46.3) % MCV 102.0 H (80.0-97.0) fL MCH 32.3 H (27.0-32.0) pg MCHC 31.6 L (32.0-37.0) g/dL RDW 14.7 H (11.5-14.5) % Eosinophils # 0.65 H (0.04-0.35) X 10*3/uL Carbon Dioxide 27.6 H (20.0-27.5) mmol/L Anion Gap 9.40 L (10.00-18.00) mmol/L POC Glucose (mg/dL) 142 H (70-110) mg/dL Plasma Lactic Acid Dario (0.7-2.0) mmol/L Calcium 8.0 L (8.7-10.3) mg/dL 11/11/22 Range/Units 11:08 RBC (4.10-5.20) X 10*6/uL Hgb (12.0-15.0) g/dL Hct (37.2-46.3) % MCV (80.0-97.0) fL MCH (27.0-32.0) pg MCHC (32.0-37.0) g/dL RDW (11.5-14.5) % Eosinophils # (0.04-0.35) X 10*3/uL Carbon Dioxide (20.0-27.5) mmol/L Anion Gap (10.00-18.00) mmol/L POC Glucose (mg/dL) 134 H (70-110) mg/dL Plasma Lactic Acid Dario (0.7-2.0) mmol/L Calcium (8.7-10.3) mg/dL Assessment and Plan Assessment: Bilateral lower extremity cellulitis rather than erythema nodosum given its significant iprovement in 24 hrs on antibiotics acute asthma exacerbation Diabetes mellitus Hyperlipidemia lipidemia Hypothyroidism History of GERD History of depression Plan: Continue with antibiotic Follow-up infectious disease consult start iv solumedrol and symbicort Also we will do workup for erythema nodosum (ideally may benefit from skin biopsy however there is no dermatology service in this facility) including chest x-ray to rule out sarcoidosis, or Tubercolsis , stool studies given her symptoms of diarrhea, we will send for stool culture. Also other possible etiologies including streptococcal infection and therefore we are going to check ASO titer and throat swab Labs and medication were reviewed.. Continue same treatment. Continue with symptomatic treatment. Resume home medication. Monitor labs and vitals. DVT and GI prophylaxis. Further recommendations as per clinical course of the patient DVT prophylaxis: Subcutaneous heparin GI Prophylaxis: Pepcid Prognosis is guarded
[2022-11-11 20:03] LABS: Glucose,Whole Blood 210 mg/dL (70-110)
[2022-11-11] MEDS: ALBUTEROL NEBULIZED 2.5 MG/3 ML INHALATION PRN (20:09)
[2022-11-11] MEDS: SYMBICORT 160-4.5 MCG INHALER INHALATION SCH (20:09)
[2022-11-11] MEDS: ATORVASTATIN 10 MG TAB PO SCH (20:46)
[2022-11-11] MEDS: ONDANSETRON 4 MG/2 ML VIAL IVP PRN (20:46)
[2022-11-11] MEDS: ACETAMINOPHEN TAB 325 MG TAB PO PRN (20:46)
[2022-11-11] MEDS: MIRTAZAPINE 15 MG TAB PO SCH (20:47)
[2022-11-12] MEDS ORDERED: hydrALAZINE HCL 20 MG/ML 1 ML VIAL IVP STA (02:52)
[2022-11-12] MEDS: AMPICILLIN-SULBACTAM 3 GM in SODIUM CHLORIDE 0.9% 100 ML IVPB SCH ×4 (03:16→21:45)
[2022-11-12] MEDS: methylPREDNISolone SOD SUCCI 125 MG/2 ML VIAL IV SCH ×4 (05:38→23:56)
[2022-11-12] MEDS: LEVOTHYROXINE 25 MCG TAB PO SCH (05:38)
[2022-11-12 07:43] LABS: Glucose,Whole Blood 169 mg/dL (70-110)
[2022-11-12] MEDS: SYMBICORT 160-4.5 MCG INHALER INHALATION SCH ×2 (08:10→19:47)
[2022-11-12] MEDS: THIAMINE 100 MG TAB PO SCH (09:04)
[2022-11-12] MEDS: FUROSEMIDE 20 MG TAB PO SCH (09:04)
[2022-11-12] MEDS: GABAPENTIN 300 MG CAP PO SCH ×3 (09:05→21:45)
[2022-11-12] MEDS: INSULIN ASPART (NovoLOG) 100 UNIT/ML VIAL SQ SCH ×4 (09:05→21:45)
[2022-11-12] MEDS: SUCRALFATE 1 GM TAB PO SCH (09:05)
[2022-11-12] MEDS: metFORMIN 500 MG TAB PO SCH ×2 (09:05→21:45)
[2022-11-12] MEDS: ACETAMINOPHEN TAB 325 MG TAB PO PRN (09:16)
[2022-11-12] MEDS: SODIUM CHLORIDE 0.9% 1,000 ML IV SCH ×2 (11:05→21:43)
[2022-11-12 12:32] LABS: Glucose,Whole Blood 147 mg/dL (70-110)
--- NOTE | 2022-11-12 17:09 | P.PN ---
Subjective Progress Note Date: 11/12/22 Principal diagnosis: right leg cellulitis Patient is a 72 year old female with a past medical history significant for diabetes mellitus hypertension hyperlipidemia also arthritis asthma, patient did have right second toe callus that has been debrided by her commercial attache a few weeks ago, patient presented to hospital with right lower extremity swelling redness concerning for possible cellulitis along with weakness. On today's evaluation that is 11/12/2022, the patient remains to be afebrile, the patient right lower extremity swelling redness and pain has decreased in intensity, patient currently with no open wound or any drainage no chest pain or shortness of his been complaining of some wheezing and need for a breathing treatment and no abdominal pain no diarrhea Objective - Vital Signs Vital signs: Vital Signs Temp 97.5 F L 11/12/22 07:45 Pulse 96 11/12/22 08:50 Resp 19 11/12/22 08:50 BP 161/89 11/12/22 07:45 Pulse Ox 94 L 11/12/22 07:45 FiO2 Intake & Output 11/11/22 11/12/22 11/12/22 18:59 06:59 18:59 Other: Voiding Method Bedside Commode Bedside Commode # Voids 1 2 # Bowel Movements 1 - Exam GENERAL DESCRIPTION: An elderly female lying in bed in no distress RESPIRATORY SYSTEM: Unlabored breathing , decreased breath sounds at bases HEART: S1 S2 regular rate and rhythm , ABDOMEN: Soft , no tenderness EXTREMITIES: Right second toe wound is currently healed right leg with some swelling minimal redness no drainage - Labs CBC & Chem 7: 11/11/22 05:28 11/11/22 05:28 Labs: Abnormal Lab Results - Last 24 Hours (Table) 11/11/22 11/11/22 11/12/22 Range/Units 17:02 20:00 07:41 POC Glucose (mg/dL) 167 H 210 H 169 H (70-110) mg/dL 11/12/22 Range/Units 12:31 POC Glucose (mg/dL) 147 H (70-110) mg/dL Assessment and Plan (1) Cellulitis Current Visit: Yes Status: Acute Code(s): L03.90 - CELLULITIS, UNSPECIFIED SNOMED Code(s): 631029289 Plan: 1patient presented to hospital with increasing swelling redness to the right lower extremity along with pain in this patient who did have hammertoe deformity and did have deployment of the callus on the right second toe by her commercial attache a few weeks ago patient currently did not have any open wound to the right second toe and x-ray did not show any bony changes if she did not have any fever or elevated white count right lower extremity with mild redness and mild cellulitis not entirely excluded, likely from gram-positive skin tate clinically doubt MRSA 2patient seemed have a subclinical improvement and will continue with Unasyn 3 g every 6 hours and monitor clinical course closely Time with Patient: Less than 30
[2022-11-12 17:42] LABS: Glucose,Whole Blood 187 mg/dL (70-110)
[2022-11-12] MEDS: ALBUTEROL NEBULIZED 2.5 MG/3 ML INHALATION PRN (19:47)
[2022-11-12] MEDS: IPRATROPIUM 0.5 MG/2.5 ML NEBU INHALATION PRN (19:47)
[2022-11-12 21:11] LABS: Glucose,Whole Blood 219 mg/dL (70-110)
[2022-11-12] MEDS: ATORVASTATIN 10 MG TAB PO SCH (21:45)
[2022-11-12] MEDS: MIRTAZAPINE 15 MG TAB PO SCH (21:45)
[2022-11-12] MEDS ORDERED: hydrALAZINE HCL 10 MG TAB PO PRN (23:05)
--- NOTE | 2022-11-12 23:11 | P.PN ---
Subjective This is a pleasant 72 years old female with multiple medical problems including type 2 diabetes mellitus, GERD, hypothyroidism, hyperlipidemia, depression Patient's also is wheelchair bound and bedbound for more than a year. She's been complaining of from bilateral leg pain for more than a year but it is slowly and gradually progressive, patient could not clarify the reason why she came to the hospital other than gradually worsened of both legs pain. Also patient has been complaining of from diarrhea for about one year Both legs look warm and tender and swollen, with there is mild scaling. No open wounds. She denies chest pain or dyspnea or coughing. No change in urine or bowel habits. No headache dizziness weakness or numbness. She denies smoking or illicit tracts but she drinks 2 glasses of wine every night. 11/11/2022 pt b/e leg cellulitis is significantly nicky after she received antibiotic therapy ,currently on unasyn , id team on the case, we will continue with the same treatment. other work up for possible erythema nodosum is negative, including cta of the chest ( recommended by radiologist for wide mediastimun on cxr) and result showing no pe, no aortic dissection , but possible mild fibrotic chages or edema, please refer to the [facility] report pt wheezing is worse today, she has history of asthma but has no current pets, she has history of asthma since childhood, start symboort and solumedrola risk of contrast and explained for the pt in detail and she verbalized understanding to the ct angio 11/12/2022 Patient still have wheezing and she still have some warm saline and redness and tenderness in the lower extremity although it's improving gradually and partially. Workup for erythema nodosum sore was negative. CTA of the chest was negative for PE, no evidence of sarcoidosis, no aortic aneurysm or dissection. She's kept on Unasyn for cellulitis She is kept on Solu-Medrol for asthma exacerbation, will continue for another 24 hours and reassess Discontinue IV fluid. Monitor creatinine tomorrow. Add hydralazine when necessary for systolic blood pressure. ESR is negative, venous Doppler was negative, group A streptococcus is negative. Patient also states that she cannot take care of herself anymore, she has been bedridden for 3 years and she wants to go to snf for placement, she says that her PCP Dr. swan already has been working on this as an outpatient Objective - Vital Signs Vital signs: Vital Signs Temp 97.5 F L 11/12/22 07:45 Pulse 96 11/12/22 08:50 Resp 19 11/12/22 08:50 BP 161/89 11/12/22 07:45 Pulse Ox 94 L 11/12/22 07:45 FiO2 Intake & Output 11/11/22 11/12/22 11/12/22 18:59 06:59 18:59 Other: Voiding Method Bedside Commode Bedside Commode # Voids 1 2 # Bowel Movements 1 - Exam GENERAL: The patient is alert and oriented x3, not in any acute distress. Well developed, well nourished. HEENT: Pupils are round and equally reacting to light. EOMI. No scleral icterus. No conjunctival pallor. Normocephalic, atraumatic. No pharyngeal erythema. No thyromegaly. CARDIOVASCULAR: S1 and S2 present. No murmurs, rubs, or gallops. -PULMONARY: Chest is clear to auscultation, b/l experatory wheezing ABDOMEN: Soft, nontender, nondistended, normoactive bowel sounds. No palpable organomegaly. MUSCULOSKELETAL: No joint swelling or deformity. -EXTREMITIES: No cyanosis, clubbing, or pedal edema. Circumscribed areas of redness and tenderness and swelling in both tibia shafts anteriorly, significantly improved NEUROLOGICAL: Gross neurological examination did not reveal any focal deficits. SKIN: No rashes. no petechiae. - Labs CBC & Chem 7: 11/11/22 05:28 11/11/22 05:28 Labs: Abnormal Lab Results - Last 24 Hours (Table) 11/11/22 11/11/22 11/12/22 Range/Units 17:02 20:00 07:41 POC Glucose (mg/dL) 167 H 210 H 169 H (70-110) mg/dL 11/12/22 Range/Units 12:31 POC Glucose (mg/dL) 147 H (70-110) mg/dL Assessment and Plan Assessment: Bilateral lower extremity cellulitis versus erythema nodosum acute asthma exacerbation Diabetes mellitus Hyperlipidemia lipidemia Hypothyroidism History of GERD History of depression Plan: Continue with antibiotic, currently on Unasyn Follow-up infectious disease consult start iv solumedrol and symbicort Also we will do workup for erythema nodosum (ideally may benefit from skin biopsy however there is no dermatology service in this facility) including chest x-ray which was negative for sarcoidosis, or Tubercolsis (also CTA, see above), stool studies given her symptoms of diarrhea is a still pending, we will send for stool culture. Also other possible etiologies including streptococcal infection and therefore we are going to check ASO titer and throat swab which came back negative. Labs and medication were reviewed.. Continue same treatment. Continue with symptomatic treatment. Resume home medication. Monitor labs and vitals. DVT and GI prophylaxis. Further recommendations as per clinical course of the patient DVT prophylaxis: Subcutaneous heparin GI Prophylaxis: Pepcid Prognosis is guarded
[2022-11-13] MEDS: AMPICILLIN-SULBACTAM 3 GM in SODIUM CHLORIDE 0.9% 100 ML IVPB SCH ×4 (03:30→21:45)
[2022-11-13] MEDS: LEVOTHYROXINE 25 MCG TAB PO SCH (06:00)
[2022-11-13] MEDS: methylPREDNISolone SOD SUCCI 125 MG/2 ML VIAL IV SCH ×4 (06:00→23:32)
[2022-11-13 07:07] LABS: Glucose,Whole Blood 178 mg/dL (70-110)
[2022-11-13] MEDS: ALBUTEROL NEBULIZED 2.5 MG/3 ML INHALATION PRN ×2 (08:12→19:56)
[2022-11-13] MEDS: SYMBICORT 160-4.5 MCG INHALER INHALATION SCH ×2 (08:12→19:56)
[2022-11-13] MEDS: IPRATROPIUM 0.5 MG/2.5 ML NEBU INHALATION PRN ×2 (08:12→19:57)
[2022-11-13] MEDS: THIAMINE 100 MG TAB PO SCH (08:35)
[2022-11-13] MEDS: FUROSEMIDE 20 MG TAB PO SCH (08:35)
[2022-11-13] MEDS: metFORMIN 500 MG TAB PO SCH ×2 (08:35→21:45)
[2022-11-13] MEDS: SUCRALFATE 1 GM TAB PO SCH (08:35)
[2022-11-13] MEDS: INSULIN ASPART (NovoLOG) 100 UNIT/ML VIAL SQ SCH ×4 (08:35→21:45)
[2022-11-13] MEDS: GABAPENTIN 300 MG CAP PO SCH ×3 (08:35→21:44)
[2022-11-13 09:23] LABS: African American GFR (CKD) 84.2 (60.0-200.0); Anion Gap 11.9 mmol/L (10.00-18.00); BUN/Creat Ratio 16.38 Ratio (12.00-20.00); Blood Urea Nitrogen 13.1 mg/dL (9.0-27.0); Calcium 8.6 mg/dL (8.7-10.3); Carbon Dioxide 30.1 mmol/L (20.0-27.5); Non-African American GFR(CKD) 72.6 (60.0-200.0); Potassium 3.3 mmol/L (3.5-5.5)
[2022-11-13] MEDS ORDERED: Potassium Replacement Protocol 1 EACH MISC MISCELLANE PRN (10:36)
[2022-11-13] MEDS: POTASSIUM CHLORIDE ER 20 MEQ TAB.ER PO SCH ×2 (11:23→12:12)
[2022-11-13 12:04] LABS: Glucose,Whole Blood 157 mg/dL (70-110)
--- NOTE | 2022-11-13 16:08 | P.PN ---
Subjective Progress Note Date: 11/13/22 Principal diagnosis: right leg cellulitis Patient is a 72 year old female with a past medical history significant for diabetes mellitus hypertension hyperlipidemia also arthritis asthma, patient did have right second toe callus that has been debrided by her stull installer a few weeks ago, patient presented to hospital with right lower extremity swelling redness concerning for possible cellulitis along with weakness. On today's evaluation that is 11/13/2022, the patient continues to be afebrile, the patient right lower extremity pain and redness has decreased in intensity, the patient denies chest pain or shortness of breath no cough no abdominal pain or diarrhea Objective - Vital Signs Vital signs: Vital Signs Temp 98.7 F 11/13/22 12:10 Pulse 89 11/13/22 12:10 Resp 15 11/13/22 12:10 BP 139/76 11/13/22 12:10 Pulse Ox 94 L 11/13/22 12:10 FiO2 Intake & Output 11/12/22 11/13/22 11/13/22 18:59 06:59 18:59 Intake Total 360 Output Total 800 Balance -440 Intake: Oral 360 Output: Urine 800 Other: Voiding Method Bedside Commode Bedside Commode Bedside Commode # Voids 1 - Exam GENERAL DESCRIPTION: An elderly female lying in bed in no distress RESPIRATORY SYSTEM: Unlabored breathing , decreased breath sounds at bases HEART: S1 S2 regular rate and rhythm , ABDOMEN: Soft , no tenderness EXTREMITIES: Right second toe wound is currently healed right leg with some swelling minimal redness no drainage - Labs CBC & Chem 7: 11/11/22 05:28 11/13/22 06:24 Labs: Abnormal Lab Results - Last 24 Hours (Table) 11/12/22 11/12/22 11/13/22 Range/Units 17:30 20:55 06:24 Potassium 3.3 L (3.5-5.5) mmol/L Carbon Dioxide 30.1 H (20.0-27.5) mmol/L Glucose 166 H (70-110) mg/dL POC Glucose (mg/dL) 187 H 219 H (70-110) mg/dL Calcium 8.6 L (8.7-10.3) mg/dL 11/13/22 11/13/22 Range/Units 07:05 11:56 Potassium (3.5-5.5) mmol/L Carbon Dioxide (20.0-27.5) mmol/L Glucose (70-110) mg/dL POC Glucose (mg/dL) 178 H 157 H (70-110) mg/dL Calcium (8.7-10.3) mg/dL Assessment and Plan (1) Cellulitis Current Visit: Yes Status: Acute Code(s): L03.90 - CELLULITIS, UNSPECIFIED SNOMED Code(s): 960956310 Plan: 1patient presented to hospital with increasing swelling redness to the right lower extremity along with pain in this patient who did have hammertoe deformity and did have deployment of the callus on the right second toe by her stull installer a few weeks ago patient currently did not have any open wound to the right second toe and x-ray did not show any bony changes if she did not have any fever or elevated white count right lower extremity with mild redness and mild cell ulitis not entirely excluded, likely from gram-positive skin tate clinically doubt MRSA 2patient has shown clinical improvement and will continue with Unasyn 3 g every 6 hours and patient will finish therapy with oral Augmentin
[2022-11-13 17:32] LABS: Glucose,Whole Blood 165 mg/dL (70-110)
[2022-11-13 20:22] LABS: Glucose,Whole Blood 177 mg/dL (70-110)
--- NOTE | 2022-11-13 21:37 | P.PN ---
Subjective This is a pleasant 72 years old female with multiple medical problems including type 2 diabetes mellitus, GERD, hypothyroidism, hyperlipidemia, depression Patient's also is wheelchair bound and bedbound for more than a year. She's been complaining of from bilateral leg pain for more than a year but it is slowly and gradually progressive, patient could not clarify the reason why she came to the hospital other than gradually worsened of both legs pain. Also patient has been complaining of from diarrhea for about one year Both legs look warm and tender and swollen, with there is mild scaling. No open wounds. She denies chest pain or dyspnea or coughing. No change in urine or bowel habits. No headache dizziness weakness or numbness. She denies smoking or illicit tracts but she drinks 2 glasses of wine every night. 11/11/2022 pt b/e leg cellulitis is significantly nicky after she received antibiotic therapy ,currently on unasyn , id team on the case, we will continue with the same treatment. other work up for possible erythema nodosum is negative, including cta of the chest ( recommended by radiologist for wide mediastimun on cxr) and result showing no pe, no aortic dissection , but possible mild fibrotic chages or edema, please refer to the [facility] report pt wheezing is worse today, she has history of asthma but has no current pets, she has history of asthma since childhood, start symboort and solumedrola risk of contrast and explained for the pt in detail and she verbalized understanding to the ct angio 11/12/2022 Patient still have wheezing and she still have some warm saline and redness and tenderness in the lower extremity although it's improving gradually and partially. Workup for erythema nodosum sore was negative. CTA of the chest was negative for PE, no evidence of sarcoidosis, no aortic aneurysm or dissection. She's kept on Unasyn for cellulitis She is kept on Solu-Medrol for asthma exacerbation, will continue for another 24 hours and reassess Discontinue IV fluid. Monitor creatinine tomorrow. Add hydralazine when necessary for systolic blood pressure. ESR is negative, venous Doppler was negative, group A streptococcus is negative. Patient also states that she cannot take care of herself anymore, she has been bedridden for 3 years and she wants to go to skilled nursing for placement, she says that her PCP Dr. coon already has been working on this as an outpatient 11/13/2022 Patient dyspnea and wheezing is improving while she is on IV steroids 60 mg, patient tells her breathing is easier today. She may continue with IV steroids for 1 or 2 more days but switched to prednisone burst taper later on and upon discharge. She still complaining of from pain wants and erythema on both legs, patient was started on IV antibiotics but shown only partial improvement. Distal erythema nodosum suspected versus other connective tissue disease especially the patient has history of psoriasis, workup was negative so far therefore we may consider dermatology follow-up as an outpatient with Dr. Luz in one week (placed and discharge instruction and patient informed) also patient might benefit from rheumatological consult patient states that she cannot take care of herself anymore and she wants to go to skilled nursing for placement, social media strategist has been consulted. Dr. Coon will resume the care of the patient tomorrow Objective - Vital Signs Vital signs: Vital Signs Temp 97.9 F 11/13/22 07:07 Pulse 96 11/13/22 08:30 Resp 14 11/13/22 08:15 BP 157/80 11/13/22 07:30 Pulse Ox 96 11/13/22 07:07 FiO2 Intake & Output 11/12/22 11/13/22 11/13/22 18:59 06:59 18:59 Intake Total 360 Output Total 800 Balance -440 Intake: Oral 360 Output: Urine 800 Other: Voiding Method Bedside Commode Bedside Commode Bedside Commode # Voids 1 - Exam GENERAL: The patient is alert and oriented x3, not in any acute distress. Well developed, well nourished. HEENT: Pupils are round and equally reacting to light. EOMI. No scleral icterus. No conjunctival pallor. Normocephalic, atraumatic. No pharyngeal erythema. No thyromegaly. CARDIOVASCULAR: S1 and S2 present. No murmurs, rubs, or gallops. -PULMONARY: Chest is clear to auscultation, b/l experatory wheezing ABDOMEN: Soft, nontender, nondistended, normoactive bowel sounds. No palpable organomegaly. MUSCULOSKELETAL: No joint swelling or deformity. -EXTREMITIES: No cyanosis, clubbing, or pedal edema. Circumscribed areas of redness and tenderness and swelling in both tibia shafts anteriorly, significantly improved NEUROLOGICAL: Gross neurological examination did not reveal any focal deficits. SKIN: No rashes. no petechiae. - Labs CBC & Chem 7: 11/11/22 05:28 11/13/22 06:24 Labs: Abnormal Lab Results - Last 24 Hours (Table) 11/12/22 11/12/22 11/13/22 Range/Units 17:30 20:55 06:24 Potassium 3.3 L (3.5-5.5) mmol/L Carbon Dioxide 30.1 H (20.0-27.5) mmol/L Glucose 166 H (70-110) mg/dL POC Glucose (mg/dL) 187 H 219 H (70-110) mg/dL Calcium 8.6 L (8.7-10.3) mg/dL 11/13/22 11/13/22 Range/Units 07:05 11:56 Potassium (3.5-5.5) mmol/L Carbon Dioxide (20.0-27.5) mmol/L Glucose (70-110) mg/dL POC Glucose (mg/dL) 178 H 157 H (70-110) mg/dL Calcium (8.7-10.3) mg/dL Assessment and Plan Assessment: Bilateral lower extremity cellulitis versus erythema nodosum , showing only partial improvement on antibiotics acute asthma exacerbation Diabetes mellitus Hyperlipidemia lipidemia Hypothyroidism History of GERD History of depression Plan: Continue with antibiotic, currently on Unasyn Follow-up infectious disease consult start iv solumedrol and symbicort Also we will do workup for erythema nodosum (ideally may benefit from skin biopsy however there is no dermatology service in this facility) including chest x-ray which was negative for sarcoidosis, or Tubercolsis (also CTA, see above), stool studies given her symptoms of diarrhea is a still pending, we will send for stool culture. Also other possible etiologies including streptococcal infection and therefore we are going to check ASO titer and throat swab which came back negative. We recommend patient follow up with microfilm duplicating unit supervisor Dr. Luz in 1 week after discharge. Rheumatology team consult in the morning Labs and medication were reviewed.. Continue same treatment. Continue with symptomatic treatment. Resume home medication. Monitor labs and vitals. DVT and GI prophylaxis. Further recommendations as per clinical course of the patient DVT prophylaxis: Subcutaneous heparin GI Prophylaxis: Pepcid Prognosis is guarded
[2022-11-13] MEDS: hydrALAZINE HCL 25 MG TAB PO PRN (21:44)
[2022-11-13] MEDS: ATORVASTATIN 10 MG TAB PO SCH (21:45)
[2022-11-13] MEDS: MIRTAZAPINE 15 MG TAB PO SCH (21:45)
[2022-11-14] MEDS: AMPICILLIN-SULBACTAM 3 GM in SODIUM CHLORIDE 0.9% 100 ML IVPB SCH ×4 (03:15→21:06)
[2022-11-14] MEDS: methylPREDNISolone SOD SUCCI 125 MG/2 ML VIAL IV SCH ×4 (05:57→23:46)
[2022-11-14] MEDS: LEVOTHYROXINE 25 MCG TAB PO SCH (05:57)
[2022-11-14 06:58] LABS: Glucose,Whole Blood 168 mg/dL (70-110)
[2022-11-14] MEDS: metFORMIN 500 MG TAB PO SCH ×2 (08:12→21:06)
[2022-11-14] MEDS: INSULIN ASPART (NovoLOG) 100 UNIT/ML VIAL SQ SCH ×4 (08:12→21:06)
[2022-11-14] MEDS: FUROSEMIDE 20 MG TAB PO SCH (08:12)
[2022-11-14] MEDS: THIAMINE 100 MG TAB PO SCH (08:12)
[2022-11-14] MEDS: SUCRALFATE 1 GM TAB PO SCH (08:12)
[2022-11-14] MEDS: GABAPENTIN 300 MG CAP PO SCH ×3 (08:12→21:06)
[2022-11-14] MEDS: SYMBICORT 160-4.5 MCG INHALER INHALATION SCH ×2 (09:58→20:51)
[2022-11-14] MEDS: ALBUTEROL NEBULIZED 2.5 MG/3 ML INHALATION PRN (09:58)
[2022-11-14 11:20] LABS: Glucose,Whole Blood 208 mg/dL (70-110)
[2022-11-14 17:12] LABS: Glucose,Whole Blood 175 mg/dL (70-110)
[2022-11-14] MEDS: hydrALAZINE HCL 25 MG TAB PO PRN (17:19)
[2022-11-14] MEDS: guaiFENesin 600 MG TABLET.ER PO PRN (17:19)
--- NOTE | 2022-11-14 17:44 | XR ---
EXAMINATION TYPE: XR chest 1V portable DATE OF EXAM: 11/14/2022 5:24 PM COMPARISON: Chest radiographs from CT 11/11/2022 TECHNIQUE: XR chest 1V portable Frontal view of the chest. CLINICAL INDICATION:Female, 72 years old with history of Wheezing; FINDINGS: Lungs/Pleura: There is no evidence of pleural effusion, focal consolidation, or pneumothorax. Pulmonary vascularity: Pulmonary vascular congestion. Heart/mediastinum: Cardiomediastinal silhouette is enlarged and stable. Musculoskeletal: No acute osseous pathology. IMPRESSION: Cardiomegaly and pulmonary vascular congestion. Correlate with BNP for congestive heart failure.
--- NOTE | 2022-11-14 19:02 | P.PN ---
Subjective Progress Note Date: 11/14/22 Principal diagnosis: right leg cellulitis Patient is a 72 year old female with a past medical history significant for diabetes mellitus hypertension hyperlipidemia also arthritis asthma, patient did have right second toe callus that has been debrided by her film flat inspector a few weeks ago, patient presented to hospital with right lower extremity swelling redness concerning for possible cellulitis along with weakness. On today's evaluation that is 11/14/2022, the patient denies having any fever or any chills, the patient is breathing slightly comfortably currently on room air no chest pain no shortness with occasional cough lower extremity swelling redness has improved and pain has decreased in intensity no open wound or any drainage Objective - Vital Signs Vital signs: Vital Signs Temp 97.8 F 11/14/22 07:00 Pulse 92 11/14/22 10:13 Resp 18 11/14/22 07:00 BP 184/94 11/14/22 07:00 Pulse Ox 95 11/14/22 07:00 FiO2 Intake & Output 11/13/22 11/14/22 11/14/22 18:59 06:59 18:59 Intake Total 240 Output Total 400 Balance -160 Intake: Oral 240 Output: Urine 400 Other: Voiding Method Bedside Commode Bedside Commode Bedside Commode # Voids 1 2 # Bowel Movements 1 - Exam GENERAL DESCRIPTION: An elderly female lying in bed in no distress RESPIRATORY SYSTEM: Unlabored breathing , decreased breath sounds at bases HEART: S1 S2 regular rate and rhythm , ABDOMEN: Soft , no tenderness EXTREMITIES: Right second toe wound is currently healed right leg with some swelling minimal redness no drainage - Labs CBC & Chem 7: 11/11/22 05:28 11/13/22 06:24 Labs: Abnormal Lab Results - Last 24 Hours (Table) 11/13/22 11/13/22 11/14/22 Range/Units 17:30 20:20 06:57 POC Glucose (mg/dL) 165 H 177 H 168 H (70-110) mg/dL 11/14/22 Range/Units 11:18 POC Glucose (mg/dL) 208 H (70-110) mg/dL Assessment and Plan (1) Cellulitis Current Visit: Yes Status: Acute Code(s): L03.90 - CELLULITIS, UNSPECIFIED SNOMED Code(s): 275754369 Plan: 1patient presented to hospital with increasing swelling redness to the right lower extremity along with pain in this patient who did have hammertoe deformity and did have deployment of the callus on the right second toe by her film flat inspector a few weeks ago patient currently did not have any open wound to the right second toe and x-ray did not show any bony changes if she did not have any fever or elevated white count right lower extremity with mild redness and mild cellulitis not entirely excluded, likely from gram-positive skin tate clinically doubt MRSA 2patient seem to have shown clinical improvement as well as the right lower extremity cellulitis is concerned we will continue patient on Unasyn while inpatient and will finish therapy with short course of oral Augmentin and a close outpatient follow-up Time with Patient: Less than 30
[2022-11-14 20:12] LABS: Glucose,Whole Blood 213 mg/dL (70-110)
[2022-11-14] MEDS: MIRTAZAPINE 15 MG TAB PO SCH (21:05)
[2022-11-14] MEDS: ATORVASTATIN 10 MG TAB PO SCH (21:06)
[2022-11-15] MEDS: AMPICILLIN-SULBACTAM 3 GM in SODIUM CHLORIDE 0.9% 100 ML IVPB SCH ×4 (03:39→21:16)
[2022-11-15] MEDS: methylPREDNISolone SOD SUCCI 125 MG/2 ML VIAL IV SCH ×3 (05:51→17:58)
[2022-11-15] MEDS: LEVOTHYROXINE 25 MCG TAB PO SCH (05:51)
[2022-11-15] MEDS: guaiFENesin 600 MG TABLET.ER PO PRN (05:51)
[2022-11-15 07:09] LABS: Glucose,Whole Blood 167 mg/dL (70-110)
[2022-11-15] MEDS ORDERED: Potassium Replacement Protocol 1 EACH MISC MISCELLANE PRN (07:26)
[2022-11-15] MEDS: POTASSIUM CHLORIDE ER 20 MEQ TAB.ER PO SCH ×2 (08:07→10:03)
[2022-11-15] MEDS: INSULIN ASPART (NovoLOG) 100 UNIT/ML VIAL SQ SCH ×4 (08:07→21:16)
[2022-11-15] MEDS: IPRATROPIUM 0.5 MG/2.5 ML NEBU INHALATION PRN ×2 (09:55→12:52)
[2022-11-15] MEDS: ALBUTEROL NEBULIZED 2.5 MG/3 ML INHALATION PRN ×2 (09:55→12:52)
[2022-11-15] MEDS: SYMBICORT 160-4.5 MCG INHALER INHALATION SCH ×2 (09:55→22:20)
[2022-11-15] MEDS: SUCRALFATE 1 GM TAB PO SCH (11:02)
[2022-11-15] MEDS: metFORMIN 500 MG TAB PO SCH ×2 (11:02→21:17)
[2022-11-15] MEDS: FUROSEMIDE 20 MG TAB PO SCH (11:02)
[2022-11-15] MEDS: GABAPENTIN 300 MG CAP PO SCH ×3 (11:04→21:17)
[2022-11-15] MEDS: THIAMINE 100 MG TAB PO SCH (11:04)
[2022-11-15 11:10] LABS: Glucose,Whole Blood 161 mg/dL (70-110)
[2022-11-15] MEDS: hydrALAZINE HCL 25 MG TAB PO PRN ×2 (13:24→22:16)
[2022-11-15] MEDS: LOSARTAN 50 MG TAB PO SCH (14:57)
--- NOTE | 2022-11-15 16:55 | P.NPCON ---
History of Present Illness - Reason for Consult Consult date: 11/15/22 Requesting physician: Darron E Sheet Past Medical History Past Medical History: Asthma, Diabetes Mellitus, Hyperlipidemia, Hypertension, Osteoarthritis (OA), Pneumonia, Thyroid Disorder Additional Past Medical History / Comment(s): 10/30/21 intractable nausea and vomiting with an episode of hypotension, nausea and vomiting for 2 months, severe gastrtis. Neuropathy bilateral feet, severe essential tremors, chronic lower extremity edema, gastric polyps, debi's esophagus, gastritis, colon polyp, occasional low back pain, hypothyroid. Hx head injury as a kid. States has to have some toes amputated after this surgery, unable to walk or be on feet for more than 5 minutes at a time. History of Any Multi-Drug Resistant Organisms: None Reported Past Surgical History: Bariatric Surgery, Tubal Ligation Additional Past Surgical History / Comment(s): 11/02/21 EGD/biopsies, colonoscopy, 2002 lap banding with reversal in 01/2022 D&C, left heel spur, sinus surgery, bilateral cataract removals. Past Anesthesia/Blood Transfusion Reactions: Motion Sickness Past Psychological History: Anxiety, Depression Smoking Status: Former smoker Past Alcohol Use History: Daily Past Drug Use History: None Reported - Past Family History Mother Family Medical History: Cancer, Hypertension Additional Family Medical History / Comment(s): Colon and lung cancer. Father Family Medical History: Cancer Additional Family Medical History / Comment(s): Multiple myeloma. Sister(s) Family Medical History: Cancer Medications and Allergies Home Medications Medication Instructions Recorded Confirmed Type Atorvastatin [Lipitor] 10 mg PO HS 10/30/21 11/10/22 History Levothyroxine Sodium [Synthroid] 25 mcg PO DAILY 10/30/21 11/10/22 History metFORMIN HCL [Glucophage] 500 mg PO BID 10/30/21 11/10/22 History Furosemide [Lasix] 20 mg PO DAILY #0 11/03/21 11/10/22 Rx Albuterol Inhaler [Ventolin Hfa 2 puff INHALATION RT-Q6H PRN 07/11/22 11/10/22 History Inhaler] Sucralfate [Carafate] 1 gm PO DAILY 07/11/22 11/10/22 History Gabapentin [Neurontin] 300 mg PO TID #90 cap 12/02/22 03/30/23 Rx Mirtazapine [Remeron] 15 mg PO HS #90 tab 07/15/22 11/10/22 Rx Allergies Allergy/AdvReac Type Severity Reaction Status Date / Time aspirin Allergy Rash/Hives Verified 11/10/22 11:30 diphenhydramine Allergy Asthma Verified 11/10/22 11:30 [From Benadryl] Attack Cholestrol Med Allergy Arms Uncoded 11/10/22 11:30 cramped up Physical Exam Vitals: Vital Signs Temp Pulse Pulse Resp BP Pulse Ox 11/15/22 14:52 172/78 11/15/22 13:30 97.5 F L 86 16 162/92 94 L 11/15/22 13:06 88 11/15/22 12:52 84 11/15/22 10:30 81 18 11/15/22 10:13 100 11/15/22 09:55 100 11/15/22 07:53 97.8 F 81 17 170/84 96 11/15/22 01:07 97.6 F 92 18 145/86 99 11/14/22 21:05 152/78 11/14/22 18:55 97.8 F 83 20 186/103 97 11/14/22 17:18 183/96 90 L Intake and Output 11/15/22 11/15/22 11/15/22 06:59 14:59 22:59 Other: Voiding Method Bedside Commode # Voids 1 1 1 # Bowel Movements 1 1 Results - Lab Results Most recent lab results Calcium 8.6 mg/dL (8.7-10.3) L 11/13/22 06:24 Magnesium 1.8 mg/dL (1.5-2.4) 11/11/22 05:28 11/11/22 05:28 11/15/22 12:22 Assessment and Plan Plan: This is a 72-year-old female seen in [facility] and rheumatology was consulted by Dr. nichols for bilateral leg swelling. She was admitted on 11/10/22 for worsening bilateral leg pain. The patient complained that she has been unable to walk and has been wheelchair-bound and mostly bedbound for more than a year and stated that she has been hospitalized for 5 weeks last year and has had no diagnosis for her problems. She does have a history of diabetes and history of neuropathy. It looks like Dr.Sheet was concerned about erythema nodosum and ordered a chest x-ray. The patient had a right second toe callus that was debrided by her lung puller a few weeks before and she did have more redness and discomfort in the right foot and leg on standing on her feet and improves when she is off her feet. X-ray of the right foot did not show any osteomyelitis and was felt that she had cellulitis and was started on antibiotics. Chest x-ray showed mild widening of mediastinum and so CT of the chest was done which was essentially negative except for mild interstitial changes suggestive of fibrosis or edema. She also had a lot of shortness of breath and wheezing and was started on IV Solu-Medrol and Symbicort and infectious disease has been treating her as well. Patient is currently awaiting snf placement as she is unable to take care of herself and will be seeing dermatology as an outpatient. The patient is a poor historian. She also mentions something about psoriatic arthritis and is not sure who diagnosed her with that but believes she does have some psoriasis. On exam she has significant tremors in her hands and voice. She has some swelling in both her ankles and lower part her legs with some chronic venous stasis and skin changes and some resolving cellulitis. Dry healed ulcer on the right second toe most likely from her recent debridement. No evidence of joint swelling other than ankles which is most likely edema. Bilateral parotid enlargement. Lung exam reveals wheezing. The rest of the exam normal. At this time I reassured the patient that I really see no evidence of an inf lammatory arthritis and no jocelin evidence of psoriatic arthritis. I will most likely need to see her x-rays that her lung puller did of her feet to see that showed any erosive disease suggestive psoriatic arthritis. She pretty was told that it is bad and will need surgery and was sent to a vascular surgeon who she has not seen yet. I told the patient that once she is discharged I would like to see her as an outpatient and I can evaluate for an autoimmune arthritis at that point and decide if she needs treatment. Since she is currently being treated for an infection there would be no point in looking for her condition that may need immunosuppressive therapy. Time with Patient: Less than 30
[2022-11-15 17:07] LABS: Glucose,Whole Blood 180 mg/dL (70-110)
--- NOTE | 2022-11-15 17:35 | P.PN ---
Subjective Progress Note Date: 11/15/22 Principal diagnosis: right leg cellulitis Patient is a 72 year old female with a past medical history significant for diabetes mellitus hypertension hyperlipidemia also arthritis asthma, patient did have right second toe callus that has been debrided by her warranty clerk a few weeks ago, patient presented to hospital with right lower extremity swelling redness concerning for possible cellulitis along with weakness. On today's evaluation that is 11/15/2022, the patient remains to be afebrile, the patient is breathing slightly comfortably currently on room air, the patient denies chest pain no shortness with occasional cough lower extremity swelling redness has improved and pain has decreased in intensity no open wound or any drainage, no abdominal pain or diarrhea Objective - Vital Signs Vital signs: Vital Signs Temp 97.5 F L 11/15/22 13:30 Pulse 86 11/15/22 13:30 Resp 16 11/15/22 13:30 BP 162/92 11/15/22 13:30 Pulse Ox 94 L 11/15/22 13:30 FiO2 Intake & Output 11/14/22 11/15/22 11/15/22 18:59 06:59 18:59 Other: Voiding Method Bedside Commode Bedside Commode Bedside Commode # Voids 1 1 1 # Bowel Movements 1 1 1 - Exam GENERAL DESCRIPTION: An elderly female lying in bed in no distress RESPIRATORY SYSTEM: Unlabored breathing , decreased breath sounds at bases HEART: S1 S2 regular rate and rhythm , ABDOMEN: Soft , no tenderness EXTREMITIES: Right second toe wound is currently healed right leg with some swelling minimal redness no drainage - Labs CBC & Chem 7: 11/11/22 05:28 11/15/22 12:22 Labs: Abnormal Lab Results - Last 24 Hours (Table) 11/14/22 11/14/22 11/15/22 Range/Units 17:12 20:11 06:28 Potassium 3.2 L (3.5-5.1) mmol/L POC Glucose (mg/dL) 175 H 213 H (70-110) mg/dL 11/15/22 11/15/22 Range/Units 07:07 11:08 Potassium (3.5-5.1) mmol/L POC Glucose (mg/dL) 167 H 161 H (70-110) mg/dL Assessment and Plan (1) Cellulitis Current Visit: Yes Status: Acute Code(s): L03.90 - CELLULITIS, UNSPECIFIED SNOMED Code(s): 570199613 Plan: 1patient presented to hospital with increasing swelling redness to the right lower extremity along with pain in this patient who did have hammertoe deformity and did have deployment of the callus on the right second toe by her warranty clerk a few weeks ago patient currently did not have any open wound to the right second toe and x-ray did not show any bony changes if she did not have any fever or elevated white count right lower extremity with mild redness and mild cellulitis not entirely excluded, likely from gram-positive skin tate clinically doubt MRSA 2patient seem to have shown clinical improvement as well as the right lower extremity cellulitis is concerned patient currently on Unasyn however will be able to finish therapy with oral Augmentin on discharge and close outpatient follow-up Time with Patient: Less than 30
[2022-11-15 20:56] LABS: Glucose,Whole Blood 172 mg/dL (70-110)
[2022-11-15] MEDS: ATORVASTATIN 10 MG TAB PO SCH (21:16)
[2022-11-15] MEDS: MIRTAZAPINE 15 MG TAB PO SCH (21:17)
[2022-11-15] MEDS: ONDANSETRON 4 MG/2 ML VIAL IVP PRN (21:17)
[2022-11-15] MEDS: INSULIN DETEMIR (LEVEMIR) 100 UNIT/ML SYR SQ SCH (21:17)
[2022-11-16] MEDS: methylPREDNISolone SOD SUCCI 125 MG/2 ML VIAL IV SCH ×3 (00:06→12:00)
[2022-11-16] MEDS: AMPICILLIN-SULBACTAM 3 GM in SODIUM CHLORIDE 0.9% 100 ML IVPB SCH ×4 (02:31→21:34)
[2022-11-16] MEDS: IPRATROPIUM 0.5 MG/2.5 ML NEBU INHALATION PRN ×2 (02:55→09:47)
[2022-11-16] MEDS: ALBUTEROL NEBULIZED 2.5 MG/3 ML INHALATION PRN ×2 (02:55→09:47)
[2022-11-16] MEDS: LEVOTHYROXINE 25 MCG TAB PO SCH (05:45)
[2022-11-16 07:18] LABS: Glucose,Whole Blood 166 mg/dL (70-110)
[2022-11-16] MEDS: INSULIN ASPART (NovoLOG) 100 UNIT/ML VIAL SQ SCH ×4 (08:44→21:33)
[2022-11-16] MEDS: SYMBICORT 160-4.5 MCG INHALER INHALATION SCH ×2 (09:47→20:06)
[2022-11-16 11:12] LABS: Glucose,Whole Blood 215 mg/dL (70-110)
[2022-11-16] MEDS: LOSARTAN 50 MG TAB PO SCH (11:29)
[2022-11-16] MEDS: SUCRALFATE 1 GM TAB PO SCH (11:29)
[2022-11-16] MEDS: FUROSEMIDE 20 MG TAB PO SCH (11:30)
[2022-11-16] MEDS: metFORMIN 500 MG TAB PO SCH ×2 (11:30→21:33)
[2022-11-16] MEDS: THIAMINE 100 MG TAB PO SCH (11:30)
[2022-11-16] MEDS: GABAPENTIN 300 MG CAP PO SCH ×3 (11:30→21:33)
[2022-11-16] MEDS: ACETAMINOPHEN TAB 325 MG TAB PO PRN (11:45)
--- NOTE | 2022-11-16 14:24 | P.PN ---
Subjective Progress Note Date: 11/16/22 Principal diagnosis: right leg cellulitis Patient is a 72 year old female with a past medical history significant for diabetes mellitus hypertension hyperlipidemia also arthritis asthma, patient did have right second toe callus that has been debrided by her training representative a few weeks ago, patient presented to hospital with right lower extremity swelling redness concerning for possible cellulitis along with weakness. On today's evaluation that is 11/16/2022, the patient continues to be afebrile, the patient is breathing comfortably currently on room air, the patient denies chest pain, the patient did have a cough mostly dry in nature no nausea no vomiting no abdominal pain or diarrhea Objective - Vital Signs Vital signs: Vital Signs Temp 98.7 F 11/16/22 14:00 Pulse 92 11/16/22 14:00 Resp 18 11/16/22 14:00 BP 147/84 11/16/22 14:00 Pulse Ox 93 L 11/16/22 14:00 FiO2 Intake & Output 11/15/22 11/16/22 11/16/22 18:59 06:59 18:59 Intake Total 590 Balance 590 Intake: Oral 590 Other: Voiding Method Bedside Commode Bedside Commode Bedside Commode # Voids 1 3 1 # Bowel Movements 1 1 - Exam GENERAL DESCRIPTION: An elderly female lying in bed in no distress RESPIRATORY SYSTEM: Unlabored breathing , coarse breath sounds bilaterally HEART: S1 S2 regular rate and rhythm , ABDOMEN: Soft , no tenderness EXTREMITIES: Right second toe wound is currently healed right leg swelling and redness has resolved - Labs CBC & Chem 7: 11/11/22 05:28 11/15/22 12:22 Labs: Abnormal Lab Results - Last 24 Hours (Table) 11/15/22 11/15/22 11/16/22 Range/Units 17:06 20:54 07:17 POC Glucose (mg/dL) 180 H 172 H 166 H (70-110) mg/dL 11/16/22 Range/Units 11:11 POC Glucose (mg/dL) 215 H (70-110) mg/dL Assessment and Plan (1) Cellulitis Current Visit: Yes Status: Acute Code(s): L03.90 - CELLULITIS, UNSPECIFIED SNOMED Code(s): 411460593 Plan: 1patient presented to hospital with increasing swelling redness to the right lower extremity along with pain in this patient who did have hammertoe deformity and did have deployment of the callus on the right second toe by her training representative a few weeks ago patient currently did not have any open wound to the right second toe and x-ray did not show any bony changes if she did not have any fever or elevated white count right lower extremity with mild redness and mild cellulitis not entirely excluded, likely from gram-positive skin tate clinically doubt MRSA 2patient seem to have shown clinical improvement as for as the right lower extremity cellulitis is concerned patient currently on Unasyn , the patient will be able to finish therapy with oral Augmentin on discharge Time with Patient: Less than 30
[2022-11-16 17:14] LABS: Glucose,Whole Blood 178 mg/dL (70-110)
[2022-11-16 20:22] LABS: Glucose,Whole Blood 242 mg/dL (70-110)
--- NOTE | 2022-11-16 20:37 | PN ---
PROGRESS NOTE DATE OF SERVICE: 11/15/2022 CHIEF COMPLAINT: Lower extremity edema and cellulitis. HISTORY OF PRESENT ILLNESS: This lady is doing slightly better. The edema is improving. She is not short of breath. PHYSICAL EXAMINATION: LEGS: Less edematous and cellulitis in both legs improving. CHEST: Clear. CARDIAC: Normal. IMPRESSION: 1. Lower extremity edema with cellulitis. 2. Diabetes. 3. Familial tremor. PLAN: Social Work is working on discharge plan. MMODL / IJN: [id number] /
[2022-11-16] MEDS: INSULIN DETEMIR (LEVEMIR) 100 UNIT/ML SYR SQ SCH (21:33)
[2022-11-16] MEDS: ATORVASTATIN 10 MG TAB PO SCH (21:33)
[2022-11-16] MEDS: MIRTAZAPINE 15 MG TAB PO SCH (21:33)
[2022-11-17] MEDS: hydrALAZINE HCL 25 MG TAB PO PRN (02:50)
[2022-11-17] MEDS: AMPICILLIN-SULBACTAM 3 GM in SODIUM CHLORIDE 0.9% 100 ML IVPB SCH ×2 (02:53→09:39)
[2022-11-17] MEDS: LEVOTHYROXINE 25 MCG TAB PO SCH (05:54)
[2022-11-17 07:00] LABS: Glucose,Whole Blood 118 mg/dL (70-110)
[2022-11-17] MEDS: INSULIN ASPART (NovoLOG) 100 UNIT/ML VIAL SQ SCH ×4 (08:36→20:28)
[2022-11-17] MEDS: LOSARTAN 50 MG TAB PO SCH (08:47)
[2022-11-17] MEDS: SYMBICORT 160-4.5 MCG INHALER INHALATION SCH ×2 (09:07→19:50)
[2022-11-17] MEDS: IPRATROPIUM 0.5 MG/2.5 ML NEBU INHALATION PRN ×2 (09:07→12:05)
[2022-11-17] MEDS: ALBUTEROL NEBULIZED 2.5 MG/3 ML INHALATION PRN ×2 (09:07→12:05)
[2022-11-17] MEDS: GABAPENTIN 300 MG CAP PO SCH ×3 (09:38→22:01)
[2022-11-17] MEDS: THIAMINE 100 MG TAB PO SCH (09:38)
[2022-11-17] MEDS: SUCRALFATE 1 GM TAB PO SCH (09:38)
[2022-11-17] MEDS: FUROSEMIDE 20 MG TAB PO SCH (09:38)
[2022-11-17] MEDS: metFORMIN 500 MG TAB PO SCH ×2 (09:38→20:30)
[2022-11-17 10:50] VITALS: BMI 38.7
[2022-11-17 11:05] LABS: Glucose,Whole Blood 115 mg/dL (70-110)
[2022-11-17] MEDS: hydrALAZINE HCL 25 MG TAB PO SCH ×3 (13:49→22:02)
[2022-11-17] MEDS: CHOLESTYRAMINE (WITH SUGAR) 4 GM PACKET PO SCH ×2 (13:49→17:22)
[2022-11-17 17:14] LABS: Glucose,Whole Blood 128 mg/dL (70-110)
[2022-11-17 20:29] LABS: Glucose,Whole Blood 130 mg/dL (70-110)
[2022-11-17] MEDS: ATORVASTATIN 10 MG TAB PO SCH (20:30)
[2022-11-17] MEDS: MIRTAZAPINE 15 MG TAB PO SCH (20:30)
[2022-11-17] MEDS ORDERED: INSULIN DETEMIR (LEVEMIR) 100 UNIT/ML SYR SQ SCH (21:00)
[2022-11-17] MEDS: guaiFENesin 600 MG TABLET.ER PO PRN (22:01)
[2022-11-17] MEDS: ACETAMINOPHEN TAB 325 MG TAB PO PRN (22:04)
[2022-11-18] MEDS: ALBUTEROL NEBULIZED 2.5 MG/3 ML INHALATION PRN ×2 (04:04→07:45)
[2022-11-18] MEDS: LEVOTHYROXINE 25 MCG TAB PO SCH (05:20)
[2022-11-18 06:58] LABS: Glucose,Whole Blood 96 mg/dL (70-110)
[2022-11-18 07:29] VITALS: RESP 18; TEMP 99.1
[2022-11-18] MEDS: SYMBICORT 160-4.5 MCG INHALER INHALATION SCH (07:44)
[2022-11-18] MEDS: IPRATROPIUM 0.5 MG/2.5 ML NEBU INHALATION PRN (07:45)
[2022-11-18] MEDS: SUCRALFATE 1 GM TAB PO SCH (08:40)
[2022-11-18] MEDS: THIAMINE 100 MG TAB PO SCH (08:40)
[2022-11-18] MEDS: GABAPENTIN 300 MG CAP PO SCH (08:40)
[2022-11-18] MEDS: LOSARTAN 50 MG TAB PO SCH (08:40)
[2022-11-18] MEDS: metFORMIN 500 MG TAB PO SCH (08:40)
[2022-11-18] MEDS: FUROSEMIDE 20 MG TAB PO SCH (08:40)
[2022-11-18] MEDS: INSULIN ASPART (NovoLOG) 100 UNIT/ML VIAL SQ SCH ×2 (08:41→14:19)
[2022-11-18] MEDS: CHOLESTYRAMINE (WITH SUGAR) 4 GM PACKET PO SCH (08:41)
[2022-11-18] MEDS: hydrALAZINE HCL 25 MG TAB PO SCH ×2 (08:41→11:57)
[2022-11-18] MEDS: ACETAMINOPHEN TAB 325 MG TAB PO PRN (08:55)
[2022-11-18] MEDS: guaiFENesin 600 MG TABLET.ER PO PRN (08:57)
[2022-11-18 11:14] LABS: Glucose,Whole Blood 107 mg/dL (70-110)
[2022-11-18 11:56] VITALS: BP 107/63; PULSE 96
--- NOTE | 2022-11-18 13:12 | DS ---
DISCHARGE SUMMARY CHIEF COMPLAINT: Edema and cellulitis of lower extremities. HISTORY OF PRESENT ILLNESS AND PHYSICAL EXAMINATION: Details of this lady's history and physical can be found in the initial workup. COURSE IN THE HOSPITAL: After admission, she was placed on bedrest on intravenous fluids and IV antibiotics. While in the hospital, her blood pressure and blood sugars became somewhat uncontrolled. These were aggressively managed. Both were under good control and it was felt [facility] . FINAL DIAGNOSES: 1. Cellulitis lower extremities. 2. Uncontrolled hypertension. 3. Uncontrolled diabetes mellitus. 4. Familial tremor. OPERATIONS: None. CONSULTATIONS: None. She is improved. MMODL / IJN: [id number] /
--- NOTE | 2022-11-18 18:36 | P.PN ---
Subjective Progress Note Date: 11/17/22 Principal diagnosis: right leg cellulitis Patient is a 72 year old female with a past medical history significant for diabetes mellitus hypertension hyperlipidemia also arthritis asthma, patient did have right second toe callus that has been debrided by her continuous towel roller a few weeks ago, patient presented to hospital with right lower extremity swelling redness concerning for possible cellulitis along with weakness. On today's evaluation that is 11/17/2022, the patient remains to be afebrile, the patient is breathing comfortably currently on room air, the patient denies chest pain, the patient denies any worsening of his depression abdominal pain has been complaining of diarrhea Objective - Vital Signs Vital signs: Vital Signs Temp 97.9 F 11/17/22 12:12 Pulse 88 11/17/22 12:22 Resp 18 11/17/22 12:12 BP 150/86 11/17/22 12:12 Pulse Ox 97 11/17/22 12:12 FiO2 Intake & Output 11/16/22 11/17/22 11/17/22 18:59 06:59 18:59 Intake Total 100 Balance 100 Weight 102.512 kg Intake: Intake, IV Titration 100 Amount Ampicillin-Sulbactam 3 gm 100 In Sodium Chloride 0.9% 100 ml @ 200 mls/hr IVPB Q6H [facility] Rx#:[id number] Other: Voiding Method Bedside Commode Bedside Commode # Voids 1 4 # Bowel Movements 1 - Exam GENERAL DESCRIPTION: An elderly female lying in bed in no distress RESPIRATORY SYSTEM: Unlabored breathing , coarse breath sounds bilaterally HEART: S1 S2 regular rate and rhythm , ABDOMEN: Soft , no tenderness EXTREMITIES: Right second toe wound is currently healed right leg swelling and redness has resolved - Labs CBC & Chem 7: 11/11/22 05:28 11/15/22 12:22 Labs: Abnormal Lab Results - Last 24 Hours (Table) 11/16/22 11/16/22 11/17/22 Range/Units 17:13 20:20 06:59 POC Glucose (mg/dL) 178 H 242 H 118 H (70-110) mg/dL 11/17/22 Range/Units 11:04 POC Glucose (mg/dL) 115 H (70-110) mg/dL Assessment and Plan (1) Cellulitis Status: Acute Code(s): L03.90 - CELLULITIS, UNSPECIFIED SNOMED Code(s): 406149516 Plan: 1patient presented to hospital with increasing swelling redness to the right lower extremity along with pain in this patient who did have hammertoe deformity and did have deployment of the callus on the right second toe by her continuous towel roller a few weeks ago patient currently did not have any open wound to the right second toe and x-ray did not show any bony changes if she did not have any fever or elevated white count right lower extremity with mild redness and mild cellulitis not entirely excluded, likely from gram-positive skin tate clinically doubt MRSA 2patient seem to have shown clinical improvement as for as the right lower extremity cellulitis, now with the patient developing diarrhea more likely antibiotic associated we will discontinue Unasyn check a stool for C. diff and treat if positive Time with Patient: Less than 30
--- NOTE | 2022-11-18 18:37 | P.PN ---
Subjective Progress Note Date: 11/18/22 Principal diagnosis: right leg cellulitis Patient is a 72 year old female with a past medical history significant for diabetes mellitus hypertension hyperlipidemia also arthritis asthma, patient did have right second toe callus that has been debrided by her bologna maker a few weeks ago, patient presented to hospital with right lower extremity swelling redness concerning for possible cellulitis along with weakness. On today's evaluation that is 11/18/2022, the patient continues to be afebrile, the patient is breathing comfortably currently on room air, the patient denies chest pain, the patient cough is decreased intensity mostly dry in nature no nausea no vomiting no abdominal pain and no diarrhea Objective - Vital Signs Vital signs: Vital Signs Temp 99.1 F 11/18/22 06:59 Pulse 96 11/18/22 11:56 Resp 18 11/18/22 09:33 BP 107/63 11/18/22 11:56 Pulse Ox 92 L 11/18/22 06:59 FiO2 Intake & Output 11/17/22 11/18/22 11/18/22 18:59 06:59 18:59 Intake Total 480 Balance 480 Weight 102.512 kg Intake: Oral 480 Other: Voiding Method Bedside Commode Bedside Commode Incontinent # Voids 1 2 1 # Bowel Movements 1 1 - Exam GENERAL DESCRIPTION: An elderly female lying in bed in no distress RESPIRATORY SYSTEM: Unlabored breathing , coarse breath sounds bilaterally HEART: S1 S2 regular rate and rhythm , ABDOMEN: Soft , no tenderness EXTREMITIES: Right second toe wound is currently healed right leg swelling and redness has resolved - Labs CBC & Chem 7: 11/11/22 05:28 11/15/22 12:22 Labs: Abnormal Lab Results - Last 24 Hours (Table) 11/17/22 11/17/22 Range/Units 17:13 20:23 POC Glucose (mg/dL) 128 H 130 H (70-110) mg/dL Assessment and Plan (1) Cellulitis Status: Acute Code(s): L03.90 - CELLULITIS, UNSPECIFIED SNOMED Code(s): 895953098 Plan: 1patient presented to hospital with increasing swelling redness to the right lower extremity along with pain in this patient who did have hammertoe deformity and did have deployment of the callus on the right second toe by her bologna maker a few weeks ago patient currently did not have any open wound to the right second toe and x-ray did not show any bony changes if she did not have any fever or elevated white count right lower extremity with mild redness and mild cellulitis not entirely excluded, likely from gram-positive skin tate clinically doubt MRSA 2patient seem to have shown clinical improvement as for as the right lower extremity cellulitis, and has received more than 7 days of antibiotic should be ordered enough no need for any antibiotic on discharge Time with Patient: Less than 30
--- NOTE | 2022-11-19 12:20 | PN ---
PROGRESS NOTE DATE OF SERVICE: 11/16/2022 CHIEF COMPLAINT: Cellulitis of the lower extremities, hypertension, and diabetes. HISTORY OF PRESENT ILLNESS: This lady is doing fairly well. She is fairly comfortable. Cellulitis of the lower extremities is improving. However, her blood sugars are elevated as well as her blood pressure. PHYSICAL EXAMINATION: CHEST: Clear. CARDIAC: Normal. ABDOMEN: Soft, nontender. IMPRESSION: 1. Cellulitis of the lower extremities. 2. Uncontrolled diabetes. 3. Uncontrolled hypertension. PLAN: 1. Stop steroids. 2. Increase insulin as well as management of her hypertension. MMODL / IJN: [id number] /
--- NOTE | 2022-11-19 15:11 | PN ---
PROGRESS NOTE DATE OF SERVICE: 11/14/2022 CHIEF COMPLAINT: Cellulitis of the lower extremities, hypertension, diabetes. HISTORY OF PRESENT ILLNESS: This lady is doing fairly well other than her tremor. Her legs are slowly improving. PHYSICAL EXAMINATION: CHEST: Clear. CARDIAC: Normal. She does have a grade 4/6 systolic murmur. ABDOMEN: Soft and nontender. IMPRESSION: 1. Cellulitis of lower extremities. 2. Familial tremor. 3. Hypertension. 4. Diabetes. 5. Cardiac murmur. PLAN: Increase medication to try to bring her blood sugars under better control as well as her blood pressures. MMODL / IJN: [id number] /
--- NOTE | 2022-11-21 15:53 | CDI ---
Documentation Clarification Form Date: 11/21/2022 3:39:08 PM From: Ary Grimaldo Phone: Admit Date: 11/10/2022 12:35:00 PM Patient Name: Nanette Subramanian Visit Number: [id number] Discharge Date: 11/18/2022 2:46:00 PM ATTENTION: The Clinical Documentation Specialists (CDI) and [facility] Coding Staff appreciate your assistance in clarifying documentation. Please respond to the clarification below the line at the bottom and electronically sign. The CDI & [facility] Coding staff will review the response and follow-up if needed. Please note: Queries are made part of the Legal Health Record. If you have any questions, please contact the author of this message via ITS. Dr. Ajay Coon Cellulitis is documented per 11/11/22 Progress Note and throughout. Additional clarification regarding the type of cellulitis is requested. History/risk factors: 72yo, BLE cellulitis, HTN, uncontrolled DMII, familial tremor, AE Asthma, HLD, depression, hypothyroidism, wheelchair andbedbound Clinical Indicators: redness andswellingsuspicious forerythemanodosum Treatment: Checkvenous ultrasoundof the lower extremity torule outDVT. Pt. with BLE cellulitisis significantly better after she received antibiotic therapy, currently on Unasyn, id team on the case, we will continue with the same treatment. Other work up for possibleerythemanodosum is negative Please clarify the etiology of the cellulitis, if known: [ ] Cellulitis is a diabetic skin complication [ ] Cellulitis is not a diabetic skin complication [ ] Other, please specify: [ ] Unable to determine (Template Last Revised: August 2022) MTDD
--- NOTE | 2022-11-22 22:42 | MISC ---
MISCELLANOUS REPORT Cellulitis is not diabetic skin eruption. MMODL / IJN: [id number] /
== END 2022-11-18 14:46 | DRG 603 ==
LOC: EC 09:35 → 5NMEDONC 12:35
PROVIDERS: ADMIT Family Medicine; ATTEND Family Medicine
DX: L03.115 Cellulitis of right lower limb (principal); J45.901 Unspecified asthma with (acute) exacerbation; E11.42 Type 2 diabetes mellitus with diabetic polyneuropathy; E03.9 Hypothyroidism, unspecified; F32.A Depression, unspecified; E11.65 Type 2 diabetes mellitus with hyperglycemia; I10 Essential (primary) hypertension; L03.116 Cellulitis of left lower limb; G25.0 Essential tremor; E83.42 Hypomagnesemia; E78.5 Hyperlipidemia, unspecified; M79.89 Other specified soft tissue disorders; K21.9 Gastro-esophageal reflux disease without esophagitis; L84 Corns and callosities; M20.41 Other hammer toe(s) (acquired), right foot; I87.8 Other specified disorders of veins; R01.1 Cardiac murmur, unspecified; K52.9 Noninfective gastroenteritis and colitis, unspecified; Z87.19 Personal history of other diseases of the digestive system; Z87.891 Personal history of nicotine dependence; Z87.820 Personal history of traumatic brain injury; Z88.8 Allergy status to other drugs, medicaments and biological substances; Z88.6 Allergy status to analgesic agent; Z79.899 Other long term (current) drug therapy; Z79.891 Long term (current) use of opiate analgesic; Z79.890 Hormone replacement therapy; Z79.84 Long term (current) use of oral hypoglycemic drugs; Z99.3 Dependence on wheelchair; Z74.01 Bed confinement status; Z89.429 Acquired absence of other toe(s), unspecified side
CPT/HCPCS: 36415; 71045; 71046; 71275; 80048; 80053; 83036; 83605; 83630; 83735; 84132; 85025; 85652; 86060; 86140; 87651; 93970; 94640; 96365; 99284